=== PATIENT | female | born 1950 | race Caucasian/White ===

== ENCOUNTER 2019-11-01 07:52 | Inpatient (IN) | payer OTHER ==
--- NOTE | 2019-11-01 08:20 | PDOC ---
History of Present Illness - General Chief Complaint: Injury Stated Complaint: FALL Time Seen by Provider: 11/01/19 08:18 - History of Present Illness Initial Comments: HPI: 69yo F with PMH of HIV, cholecystectomy, DVT presenting after a unwitnessed falls. Patient reports that she was in the kitchen to get a soda last night when she fell and was unable to pick herself up. Beause she was unable to pick herself up, she slept on the floor until morning. This morning, patient woke up and fell once again, hitting her head and sustaining a bruise on her forehead. She managed to make her way to a telephone and called for an ambulance. Patient reports that she also fell twice last week. Patient remembers each fall. Denies loss of consciousness, nausea, or vomiting. Not on blood thinners. She is adherent to antiviral therapy, last CD4 count and viral load were "good" when they were checked last Tuesday. No fevers, chills, chest pain, or shortness of breath. PCP: Dr. Cortes ROS: Constitutional: no fever, no chills HEENT: no throat pain, no dysphagia Cardiovascular: no chest pain, no palpitations Respiratory: no cough, no shortness of breath Gastrointestinal: no abdominal pain, no nausea Genitourinary: no dysuria, no hematuria Musculoskeletal: no myalgia, no arthralgia Skin: no rash, no itching Neurologic: no headache, +weakness PE: General: Awake, alert, and fully oriented, in no acute distress Head: Mild hematoma on right side of forehead Eyes: EOMI, sclera anicteric ENT: Moist mucus membranes Neck: Normal ROM, supple Lungs: Lungs clear, Normal breath sounds Cardio: Regular rhythm, S1 and S2 present Abdomen: Soft, nontender Extremities: Normal range of motion, Distal pulses present SKIN: Warm, Dry, normal turgor Neurologic: Cranial nerves II through XII grossly intact. Normal speech ED Course/MDM: DDX including but not limited to mechanical fall, ACS, PE, PNA, anemia, metabolic derangement Labs, EKG, CXR CT Head CT Cspine 11/01/19 08:20 CT Head: "EXAM#: TYPE/EXAM: RESULT: [id number] CT/HEAD CT (STROKE) Collapse. Rule out stroke CT scan of the head without intravenous contrast. Compared to prior MRI of the brain dated 10/30/2019 There is [id number]-na-[id number] volume loss, ventricular dilatation and probable minimal periventricular chronic microvascular ischemic disease changes. No mass lesion, gross acute infarct or intracranial hemorrhage are identified. The calvarium is intact. Mild soft tissue swelling of the scalp over right side of the 4 head IMPRESSION: No significant interval change or CT evidence of acute intracranial pathology is identified. Mild soft tissue swelling of the scalp/hematoma over right side of the frontal bone. Reported By: Niranjan Duval MD 11/01/19 0841 " CT cspine: "EXAM#: TYPE/EXAM: RESULT: [id number] CT/CERVICAL SPINE CT W/O CONTR Rule out fracture CT scan of the cervical spine without intravenous contrast Coronal and sagittal reconstruction images were obtained. There is straightening of the cervical spine. No gross fracture, subluxation or prevertebral soft tissue swelling is seen. No jumped facets are identified. Moderately severe degenerative disc disease at C4-C5 and C5-C6 level with anterior and mild posterior spur formation resulting in moderate narrowing of the left foramen at both levels. Mild to moderate degenerative disc disease at C3-C4 level with prominent left lateral uncovertebral hypertrophy moderately narrowing the left foramen. Moderate degenerative disc disease at C6-C7 level with mild broad-based disc osteophyte complex and bilateral uncovertebral hypertrophy moderately narrowing the foramina, left more than right. Visualized portion of the airway appears unremarkable. No gross enlarged lymph nodes are identified. Calcified plaques at the common carotid bifurcation, bilaterally. Lung windows at the thoracic inlet appear unremarkable. IMPRESSION: The alignment is satisfactory. No gross fracture or subluxation is seen. No jumped facets are identified. Multilevel degenerative disc disease, mild disc osteophyte complex and bilateral uncovertebral hypertrophy, as described above " 11/01/19 10:12 CXR: "Single AP portable chest x-ray compared with August 02, 2010. The heart is borderline enlarged. No evidence of pneumonia, atelectasis. No pneumothorax, or large pleural effusion is seen. No evidence of vascular congestive changes. No evidence of bulky hilar adenopathy. Demineralized osseous structures. Dextroscoliosis of the thoracic spine. Bilateral glenohumeral joint arthropathy. Impression No evidence of active pulmonary disease Reported By: Zach Wilder MD 11/01/19 1142 " CBC WBC 11.5 K/mm3 (4.0-10.0) H 11/01/19 09:10 RBC 4.46 M/mm3 (3.60-5.2) 11/01/19 09:10 Hgb 14.4 GM/dL (10.7-15.3) 11/01/19 09:10 Hct 43.3 % (32.4-45.2) 11/01/19 09:10 MCV 97.1 fl (80-96) H 11/01/19 09:10 MCH 32.4 pg (25.7-33.7) 11/01/19 09:10 MCHC 33.3 g/dl (32.0-36.0) 11/01/19 09:10 RDW 14.0 % (11.6-15.6) 11/01/19 09:10 Plt Count 197 K/MM3 (134-434) 11/01/19 09:10 MPV 9.1 fl (7.5-11.1) 11/01/19 09:10 Absolute Neuts (auto) 7.7 K/mm3 (1.5-8.0) 11/01/19 09:10 Neutrophils % 66.5 % (42.8-82.8) 11/01/19 09:10 Lymphocytes % 23.5 % (8-40) 11/01/19 09:10 Monocytes % 7.5 % (3.8-10.2) 11/01/19 09:10 Eosinophils % 1.7 % (0-4.5) 11/01/19 09:10 Basophils % 0.8 % (0-2.0) 11/01/19 09:10 Nucleated RBC % 0 % (0-0) 11/01/19 09:10 Mild leukocytosis No anemia CMP Sodium 140 mmol/L (136-145) 11/01/19 09:10 Potassium 3.7 mmol/L (3.5-5.1) 11/01/19 09:10 Chloride 108 mmol/L (98-107) H 11/01/19 09:10 Carbon Dioxide 28 mmol/L (21-32) 11/01/19 09:10 Anion Gap 4 MMOL/L (8-16) L 11/01/19 09:10 BUN 20.0 mg/dL (7-18) H 11/01/19 09:10 Creatinine 0.9 mg/dL (0.55-1.3) 11/01/19 09:10 Est GFR (CKD-EPI)AfAm 74.56 11/01/19 09:10 Est GFR (CKD-EPI)NonAf 64.33 11/01/19 09:10 Random Glucose 102 mg/dL (74-106) 11/01/19 09:10 Calcium 9.3 mg/dL (8.5-10.1) 11/01/19 09:10 Total Bilirubin 0.6 mg/dL (0.2-1) 11/01/19 09:10 AST 20 U/L (15-37) 11/01/19 09:10 ALT 24 U/L (13-61) 11/01/19 09:10 Alkaline Phosphatase 143 U/L (45-117) H 11/01/19 09:10 Creatine Kinase 176 U/L (26-192) 11/01/19 09:10 Creatine Kinase Index 1.0 % (0.0-5.0) 11/01/19 09:10 CK-MB (CK-2) 1.8 ng/mL (0.5-3.6) 11/01/19 09:10 Troponin I < 0.02 ng/ml (0.00-0.05) 11/01/19 09:10 Total Protein 7.3 g/dl (6.4-8.2) 11/01/19 09:10 Albumin 3.7 g/dl (3.4-5.0) 11/01/19 09:10 Electrolytes unremarkable BUN mildly elevated Cr normal Tpn undetectable EKG: rate 62, QTc 475, NSR Discussed case with Dr. Randhawa who accepted patient for admission under herself 11/01/19 10:26 Fluid bolus ordered Given patient has history of DVT in the setting of unwitnessed fall/syncope, decision was made to obtain CTA which was negative for acute pathology: "Chest CT angiography Clinical information: evaluate for pulmonary embolism Multiplanar imaging was performed following the intravenous administration of nonionic contrast. No discrete pulmonary embolus is identified. Note is again made of mildly increased interstitial markings within the upper and lower lung murguia as well as mildly heterogeneous groundglass density consistent with mild chronic lung disease. No evidence of pneumothorax, infiltrate or pleural effusion. Stable 0.4 cm subpleural nodule within the lateral basal segment of the right lower lobe ( transaxial image 54). There is no definite cardiac enlargement. No pericardial effusion is seen. There is no discrete lymphadenopathy. No aortic aneurysm is noted. There is no obvious acute osseous pathology. Note is again made of a 2.3 cm left adrenal adenoma. A 1.3 cm nonspecific splenic low-attenuation focus is seen previously measuring 0.8 cm IMPRESSION: No CT evidence of pulmonary embolism or other acute intrathoracic pathology. Mild chronic lung disease without interval change in comparison to a CT exam of 12/15/2017. At least moderate atherosclerotic coronary calcifications are visualized. Correlate with clinical risk factors. Stable 0.4 cm right lower lobe pulmonary nodule. Stable 2.3 cm left adrenal adenoma. Biochemical evaluation is suggested if not previously performed. A 1.3 cm nonspecific splenic hypodense focus is noted which previously measured 0.8 cm. Correlation with 2 month follow-up CT or MRI is suggested to evaluate stability. Reported By : Joshua Dang MD 11/01/191931 " Past History - Past Medical History Allergies/Adverse Reactions: Allergies Allergy/AdvReac Type Severity Reaction Status Date / Time No Known Allergies Allergy Verified 06/17/13 12:03 Home Medications: Ambulatory Orders Acetaminophen W/ Codeine #3 [Tylenol W/Codeine #3] 1 combo NR Q4HWA #0 tablet Gabapentin [Neurontin] 1,200 mg PO BID 01/12/12 Paroxetine HCl [Paxil] 20 mg PO TID 01/12/12 Ritonavir Oral Solution [Norvir] 100 mg PO ONCE 01/12/12 Anemia: No Asthma: No Cancer: No Cardiac Disorders: No CVA: No COPD: No CHF: No Dementia: No Diabetes: No GI Disorders: No Disorders: No HTN: No Hypercholesterolemia: No Liver Disease: No Seizures: No Thyroid Disease: No - Surgical History Cholecystectomy: Yes (05/2013) Orthopedic Surgery: Yes (bi-lateral knee replacements) - Psycho Social/Smoking Cessation Hx Smoking Status: Yes Smoking History: Current every day smoker Have you smoked in the past 12 months: Yes Number of Cigarettes Smoked Daily: 5 Information on smoking cessation initiated: No Hx Alcohol Use: No Drug/Substance Use Hx: No *Physical Exam - Vital Signs Last Vital Signs Temp Pulse Resp BP Pulse Ox 97.7 F 60 18 166/73 97 11/01/19 07:57 11/01/19 07:57 11/01/19 07:57 11/01/19 07:57 11/01/19 07:57 ED Treatment Course - LABORATORY CBC & Chemistry Diagram: 11/01/19 09:10 11/01/19 09:10 Discharge - Discharge Information Problems reviewed: Yes Clinical Impression/Diagnosis: Unwitnessed fall Condition: Guarded - Admission Yes - Follow up/Referral - Patient Discharge Instructions - Post Discharge Activity
[2019-11-01 09:33] LABS: BASO % 0.8 % (0-2.0); EOS % 1.7 % (0-4.5); HEMATOCRIT 43.3 % (32.4-45.2); HEMOGLOBIN 14.4 GM/dL (10.7-15.3); LYMPH % 23.5 % (8-40); MCH 32.4 pg (25.7-33.7); MCHC 33.3 g/dl (32.0-36.0); MEAN CELL VOLUME 97.1 fl (80-96); MEAN PLT VOLUME 9.1 fl (7.5-11.1); MONO % 7.5 % (3.8-10.2); NEUT % 66.5 % (42.8-82.8); PLATELET COUNT 197 K/MM3 (134-434); RBC 4.46 M/mm3 (3.60-5.2); WHITE BLOOD COUNT 11.5 K/mm3 (4.0-10.0)
[2019-11-01] MEDS ORDERED: ALBUTEROL SO4 2.5/IPRATROPIUM 0.5 INH SOL 3 ML VIAL.NEB. NEB ONE (09:57)
[2019-11-01 09:59] LABS: ALBUMIN 3.7 g/dl (3.4-5.0); BILIRUBIN,TOTAL 0.6 mg/dL (0.2-1); CALCIUM 9.3 mg/dL (8.5-10.1); CREATININE 0.9 mg/dL (0.55-1.3); POTASSIUM 3.7 mmol/L (3.5-5.1); TOT PROT 7.3 g/dl (6.4-8.2)
[2019-11-01] MEDS ORDERED: SODIUM CHLORIDE 1,000 ML IV STA (10:32)
[2019-11-01 10:48] LABS: INR 0.95 (0.83-1.09); PROTHROMBIN TIME (PATIENT) 11.2 SEC (9.7-13.0)
[2019-11-01 10:51] LABS: ACTIVATED PTT 32.8 SECONDS (25.2-36.5)
--- NOTE | 2019-11-01 11:08 | HP ---
Admitting History and Physical - Primary Care Physician PCP: Yoshi Cortes - Admission Chief Complaint: s/p fall History of Present Illness: ER note- The patient is a 69 year old female, with a significant past medical history of HIV, cholecystectomy (05/2013) who presents to the ED via EMS s/p fall one day ago. Patient reports dizziness described as the room spinning since last night and presents with a hematoma to the right forehead. ] Spoke with ER resident Pt has had multiple falls since one week-- had seen DR Cortes earlier last week for follow up and was started on Inderal - after which pt has been experiencing dizziness and imbalance I spoke to PMD--patient did not have problems with gait-she had come in for palpitation and he started her on Inderal--has a history of lumbar radiculopathy and cervical radiculopathy denies chest pain or shortness of breath History Source: Patient, Transfer Record Limitations to Obtaining History: Poor Historian - Past Medical History Hepatobiliary: Yes: Hepatitis C (Status post interferon) Infectious Disease: Yes: HIV (she sees Dr. Rouse) Additional Past Medical History: lumbar radiculopathy, obesity, cervical radiculopathy, carpal tunnel syndrome status post surgery, history of right ankle fracture, lap cholecystectomy, hysterectomy, bilateral total knee replacement, history of right ankle fracture , chronic smokerhalf pack a day - Smoking History Smoking history: Current every day smoker Have you smoked in the past 12 months: Yes Aproximately how many cigarettes per day: 5 - Alcohol/Substance Use Hx Alcohol Use: No Home Medications - Allergies Allergies/Adverse Reactions: Allergies Allergy/AdvReac Type Severity Reaction Status Date / Time No Known Allergies Allergy Verified 06/17/13 12:03 - Home Medications Home Medications: Ambulatory Orders Acetaminophen W/ Codeine #3 [Tylenol W/Codeine #3] 1 combo NR Q4HWA #0 tablet Gabapentin [Neurontin] 1,200 mg PO BID 01/12/12 Paroxetine HCl [Paxil] 20 mg PO TID 01/12/12 Ritonavir Oral Solution [Norvir] 100 mg PO ONCE 01/12/12 Family Medical History Family Hx Cancer: Brother (liver cancer) Family Hx Dementia: Mother (Alzheimer's) Review of Systems - Review of Systems Constitutional: denies: Chills, Fever Physical Examination Vital Signs: Vital Signs Temperature 97.7 F 11/01/19 07:57 Pulse Rate 60 11/01/19 07:57 Respiratory Rate 18 11/01/19 07:57 Blood Pressure 166/73 11/01/19 07:57 O2 Sat by Pulse Oximetry (%) 97 11/01/19 07:57 Constitutional: Yes: No Distress, Calm, Other (hematoma right forehead) Cardiovascular: Yes: Regular Rate and Rhythm Respiratory: Yes: Diminished Gastrointestinal: Yes: Normal Bowel Sounds, Soft, Abdomen, Obese. No: Tenderness Edema: No Neurological: Yes: Alert, Other (unkept appearance) Psychiatric: Yes: Alert, Oriented Labs: CBC, BMP 11/01/19 09:10 11/01/19 09:10 Imaging - Results Chest X-ray: Image Reviewed (clear) Cat Scan: Pending (CT Head: "EXAM#: TYPE/EXAM: RESULT: [id number] CT/HEAD CT ( STROKE) Collapse. Rule out stroke CT scan of the head without intravenous contrast. Compared to prior MRI of the brain dated 10/30/2019 There is mild-to- moderate volume loss, ventricular dilatation and probable minimal periventricular chronic microvascular ischemic disease changes. No mass lesion, gross acute infarct or intracranial hemorrhage are identified. The calvarium is intact. Mild soft tissue swelling of the scalp over right side of the 4 head IMPRESSION: No significant interval change or CT evidence of acute intracranial pathology is identified. Mild soft tissue swelling of the scalp/hematoma over right side of the frontal bone. Reported By: Niranjan Duval MD 11/01/19 0841 " CT cspine: "EXAM#: TYPE/EXAM: RESULT: [id number] CT/CERVICAL SPINE CT W/O CONTR Rule out fracture CT scan of the cervical spine without intravenous contrast Coronal and sagittal reconstruction images were obtained. There is straightening of the cervical spine. No gross fracture, subluxation or prevertebral soft tissue swelling is seen. No jumped facets are identified. Moderately severe degenerative disc disease at C4-C5 and C5-C6 level with anterior and mild posterior spur formation resulting in moderate narrowing of the left foramen at both levels. Mild to moderate degenerative disc disease at C3-C4 level with prominent left lateral uncovertebral hypertrophy moderately narrowing the left foramen. Moderate degenerative disc disease at C6-C7 level with mild broad-based disc osteophyte complex and bilateral uncovertebral hypertrophy moderately narrowing the foramina, left more than right. Visualized portion of the airway appears unremarkable. No gross enlarged lymph nodes are identified. Calcified plaques at the common carotid bifurcation, bilaterally. Lung windows at the thoracic inlet appear unremarkable. IMPRESSION: The alignment is satisfactory. No gross fracture or subluxation is seen. No jumped facets are identified. Multilevel degenerative disc disease, mild disc osteophyte complex and bilateral uncovertebral hypertrophy, as described above " 11/01/19 10:12) EKG: Image Reviewed (normal sinus rhythm) Problem List - Problems (1) HIV (human immunodeficiency virus infection) Code(s): B20 - HUMAN IMMUNODEFICIENCY VIRUS [HIV] DISEASE (2) Frequent falls Code(s): R29.6 - REPEATED FALLS (3) Unwitnessed fall Code(s): R29.6 - REPEATED FALLS Assessment/Plan I spoke with the ER resident, he has ordered CTA chest to rule out PE as she had DVT in the past ID evaluation Physical therapy MRI brain was done by her neurologistnegative Neurology evaluation Check orthostasis Patient appears to be very drystart IV fluids Patient was on Lasix, Aldactone, Tylenol with Codeine, baclofen, high-dose gabapentin, methacarbamol-- medications may be the cause why she is falling I will hold off on these medications for now DVT prophylaxisheparin subcutaneous
[2019-11-01] MEDS: SODIUM CHLORIDE 0.45% 1,000 ML IV SCH (12:04)
[2019-11-01 13:33] LABS: EPI CELLS 6.2 /HPF (0-5/HPF); HYALINE CASTS 1 /lpf (0-8); PH,URINE 5.5 (5.0-8.0); URINE APPEARANCE CLEAR; URINE BACTERIA 8.2 /hpf (NEGATIVE); URINE BILIRUBIN NEGATIVE (NEGATIVE); URINE COLOR YELLOW; URINE GLUCOSE (UA) NEGATIVE (NEGATIVE); URINE KETONE NEGATIVE (NEGATIVE); URINE LEUK ESTERASE TRACE (NEGATIVE); URINE NITRITE NEGATIVE (NEGATIVE); URINE PROTEIN NEGATIVE (NEGATIVE); URINE RBC 2 /hpf (0-4); URINE UROBILINOGEN 0.2 mg/dL (0.2-1.0); URINE WBC 2 /hpf (0-5)
[2019-11-01] MEDS ORDERED: PARoxetine HCL 20 MG TABLET PO SCH (14:00)
--- NOTE | 2019-11-01 14:24 | PDOC ---
Documentation entered by Geraldine Villela SCRIBE, acting as scribe for Janeen Veloz MD. Janeen Veloz MD: This documentation has been prepared by the [employer] Nirvannie, SCRIBE, under my direction and personally reviewed by me in its entirety. I confirm that the documentation accurately reflects all work, treatment, procedures, and medical decision making performed by me. Attending Attestation - Resident Resident Name: Yisel Meade - ED Attending Attestation I have performed the following: I have examined & evaluated the patient, The case was reviewed & discussed with the resident, I agree w/resident's findings & plan, Exceptions are as noted - HPI HPI: 11/01/19 12:57 The patient is a 69 year old female, with a significant past medical history of HIV, cholecystectomy (05/2013) who presents to the ED via EMS s/p fall one day ago. Patient reports dizziness described as the room spinning since last night and presents with a hematoma to the right forehead. Allergies: NKDA Past surgical history: rotator cuff surgery , cholecystectomy (05/2013) Social History: tobacco smoker - Physicial Exam PE: 11/01/19 14:19 awake alert posterior scalp ttp. no skull defect. lungs clear bilat heart rrr no mrg abd soft nt nd ext wwp. right knee with large eccymosis. hip and knee from left knee lateral thigh wtih eccymosis. FROM hip, ankle and pelvis. pelvis stable nontender. nuero alert oriented x 3. - Medical Decision Making 11/01/19 14:20 69 yo F with c/o fall yesterday, has been notin jerking to her right arm and shakiness. also currently complaining of heaviness when she breaths. does have h /o prior DVT in right leg. no f.c no cough. plan xray r/o fx, ct head cervical spine. pt ct head and cervical spine no acute process. 11/01/19 14:21 will require admission for syncope. ekg NSR 62, left axis. Heart Score/ECG Review #1 ECG reviewed & interpreted by me at: 14:23 General ECG Interpretation: Sinus Rhythm, Normal Rate (62), Normal Intervals, No acute ischemic changes
--- NOTE | 2019-11-01 14:39 | EKG ---
Test Reason : Blood Pressure : / mmHG Vent. Rate : 062 BPM Atrial Rate : 062 BPM P-R Int : 140 ms QRS Dur : 088 ms QT Int : 468 ms P-R-T Axes : 047 -56 035 degrees QTc Int : 475 ms NORMAL SINUS RHYTHM LEFT ANTERIOR FASCICULAR BLOCK ABNORMAL ECG WHEN COMPARED WITH ECG OF 02-AUG-2010 20:00, CRITERIA FOR SEPTAL INFARCT ARE NO LONGER PRESENT Confirmed by REMI HOSKINS MD ([id number]) on 11/01/2019 2:39:24 PM Referred By: Confirmed By:REMI HOSKINS MD
--- NOTE | 2019-11-01 16:33 | PN ---
Progress Note (short form) - Note Progress Note: ID CONSULT DICTATED S/P FALLS HIV+ VL< 20 CD4 1089 CONTINUE TRUVADA/PREZCOBIX
--- NOTE | 2019-11-01 17:13 | CON.NEURO ---
Consult Consult Specialty:: Larry Referred by:: Jovanni - History of Present Illness History of Present Illness: 69 years old woman with history of HIV positive Anxiety ?? dementia Used to see my colleague Dr Dimitri Gomez [facility] I just saw the patient in the office 10/22 Came in with multiple falls Patient had MRI two days ago - History Source History Provided By: Patient, Family Member, Medical Record Limitations to Obtaining History: No Limitations - Past Medical History Hepatobiliary: Yes: Hepatitis C (Status post interferon) Infectious Disease: Yes: HIV (she sees Dr. Rouse) - Alcohol/Substance Use Hx Alcohol Use: No - Smoking History Smoking history: Current every day smoker Have you smoked in the past 12 months: Yes Aproximately how many cigarettes per day: 5 Home Medications - Allergies Allergies/Adverse Reactions: Allergies Allergy/AdvReac Type Severity Reaction Status Date / Time No Known Allergies Allergy Verified 06/17/13 12:03 - Home Medications Home Medications: Ambulatory Orders Acetaminophen W/ Codeine #3 [Tylenol W/Codeine #3] 1 combo NR Q4HWA #0 tablet Gabapentin [Neurontin] 1,200 mg PO BID 01/12/12 Paroxetine HCl [Paxil] 20 mg PO TID 01/12/12 Ritonavir Oral Solution [Norvir] 100 mg PO ONCE 01/12/12 Review of Systems - Review of Systems Constitutional: reports: No Symptoms Eyes: reports: No Symptoms HENT: reports: No Symptoms Neurological: reports: Headache, Incoordination, Numbness, Parasthesia, Unsteady Gait Physical Exam-Neuro Vital Signs: Vital Signs Temperature 97.8 F 11/01/19 12:31 Pulse Rate 62 11/01/19 12:31 Respiratory Rate 19 11/01/19 12:31 Blood Pressure 156/71 11/01/19 12:31 O2 Sat by Pulse Oximetry (%) 99 11/01/19 12:31 Constitutional: Yes: Well Nourished Neck: Yes: WNL Cardiovascular: Yes: WNL Labs: CBC, BMP 11/01/19 09:10 11/01/19 09:10 INR, PTT INR 0.95 (0.83-1.09) 11/01/19 09:10 - Neuro Exam Eyes: Yes: PERRLA Speech: WNL Dominant Hand: Right Cranial Nerves II-XII Intact: Yes Gag: Present DTR's: 1+ Left Bicep, 1+ Right Bicep Response to light touch: Normal Response to pain prick: Normal Response to temperature: Normal Motor Strength: 3/5: Left Arm, Right Arm, Left Leg, Right Leg Gait: Deferred, Other (slight tremors ) Imaging - Results Cat Scan: Image Reviewed MRI: Image Reviewed Problem List - Problems (1) Frequent falls Code(s): R29.6 - REPEATED FALLS (2) HIV (human immunodeficiency virus infection) Code(s): B20 - HUMAN IMMUNODEFICIENCY VIRUS [HIV] DISEASE Assessment/Plan multifactorial gait dysfunction 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 Fall precautions. 2. Blood work. 3. MRI of the lumbosacral spine with no contrast. 4. Physical therapy. 5. Follow up with ID 6. Trial of Sinement Thank you very much for allowing me to be part of this patient's neurological care Félix Juarez MD
[2019-11-01 18:29] VITALS: BMI 33.3
[2019-11-01] MEDS: ACETAMINOPHEN 325 MG TABLET (FP) PO PRN (18:31)
[2019-11-01] MEDS: HEPARIN NA (PORCINE) 5,000 UNITS/ML 1ML VIAL SQ SCH (22:00)
[2019-11-01] MEDS: CARBIDOPA/LEVODOPA 10/100 TABLET (FP) PO SCH (22:00)
[2019-11-02] MEDS: ACETAMINOPHEN 325 MG TABLET (FP) PO PRN ×2 (02:17→17:40)
[2019-11-02] MEDS: SODIUM CHLORIDE 0.45% 1,000 ML IV SCH (06:28)
[2019-11-02 09:13] LABS: HEMOGLOBIN 12.8 GM/dL (10.7-15.3); LYMPH % 31.7 % (8-40); MCH 32.2 pg (25.7-33.7); MCHC 33.7 g/dl (32.0-36.0); MEAN CELL VOLUME 95.5 fl (80-96); MEAN PLT VOLUME 9.2 fl (7.5-11.1); MONO % 7.9 % (3.8-10.2); NEUT % 57.4 % (42.8-82.8); PLATELET COUNT 171 K/MM3 (134-434); RBC 3.97 M/mm3 (3.60-5.2)
[2019-11-02 09:40] LABS: ALBUMIN 3.2 g/dl (3.4-5.0); BLOOD UREA NITROGEN 13.4 mg/dL (7-18); CALCIUM 8.9 mg/dL (8.5-10.1); CREATININE 0.7 mg/dL (0.55-1.3); POTASSIUM 3.4 mmol/L (3.5-5.1); TOT PROT 6.5 g/dl (6.4-8.2)
[2019-11-02] MEDS ORDERED: RITONAVIR ORAL SOLUTION 80 MG/ML PO SCH (10:00)
--- NOTE | 2019-11-02 11:23 | PN ---
Progress Note, Physician History of Present Illness: Pt seen/ examined chart is reviewed awake complains of back pain/ numbness - Current Medication List Current Medications: Active Medications Acetaminophen (Tylenol -) 650 mg PO Q6H PRN PRN Reason: Fever Last Admin: 11/02/19 02:17 Dose: 650 mg Carbidopa/Levodopa (Sinemet 10/100 -) 1 each PO BID [facility] Last Admin: 11/01/19 22:00 Dose: 1 each Emtricitabine/Tenofovir (Truvada) 1 tab PO DAILY [facility] Gabapentin (Neurontin -) 200 mg PO TID [facility] Heparin Sodium (Porcine) (Heparin -) 5,000 unit SQ BID [facility] Last Admin: 11/01/19 22:00 Dose: 5,000 unit Sodium Chloride (1/2 Normal Saline) 1,000 mls @ 83 mls/hr IV ASDIR [facility] Last Admin: 11/02/19 06:28 Dose: 83 mls/hr Potassium Chloride (Potassium Chloride Oral Liquid) 20 meq PO ONCE ONE Stop: 11/02/19 11:20 - Objective Vital Signs: Vital Signs Temperature 97.9 F 11/02/19 10:00 Pulse Rate 74 11/02/19 10:00 Respiratory Rate 11/02/19 10:00 Blood Pressure 133/58 L 11/02/19 10:00 O2 Sat by Pulse Oximetry (%) 95 11/01/19 21:00 Constitutional: Yes: No Distress Eyes: Yes: Conjunctiva Clear Neck: Yes: Supple Respiratory: Yes: CTA Bilaterally Gastrointestinal: Yes: Soft Musculoskeletal: Yes: Back Pain Edema: No Neurological: Yes: Alert Psychiatric: Yes: Other Additional Findings/Remarks: mood somewhat depressed Labs: CBC, BMP 11/02/19 07:50 11/02/19 07:50 INR, PTT INR 0.95 (0.83-1.09) 11/01/19 09:10 - ....Imaging Cat Scan: Report Reviewed Problem List - Problems (1) Back pain Code(s): M54.9 - DORSALGIA, UNSPECIFIED (2) Mood disorder Code(s): F39 - UNSPECIFIED MOOD [AFFECTIVE] DISORDER (3) Frequent falls Code(s): R29.6 - REPEATED FALLS (4) HIV (human immunodeficiency virus infection) Code(s): B20 - HUMAN IMMUNODEFICIENCY VIRUS [HIV] DISEASE Assessment/Plan Discussed PT Fall precautions Start on low dose of Gabapentin as well as Paxil daily dose MRI ordered Daily oob - chair PT D/C fluids as eating well Will follow
[2019-11-02] MEDS ORDERED: POTASSIUM CHLORIDE ORAL LIQUID 20 MEQ/15 ML PO ONE (11:30)
[2019-11-02] MEDS ORDERED: PT OWN MED DRAWER 7, Y5N ONE (11:49)
[2019-11-02] MEDS: EMTRICITABINE 200MG/TENOFOVIR 300MG PO SCH (11:51)
[2019-11-02] MEDS: CARBIDOPA/LEVODOPA 10/100 TABLET (FP) PO SCH ×2 (11:52→22:22)
[2019-11-02] MEDS: DARUNAVIR 800 MG/COBICISTAT 150MG TABLET PO SCH (11:52)
[2019-11-02] MEDS: HEPARIN NA (PORCINE) 5,000 UNITS/ML 1ML VIAL SQ SCH ×2 (11:53→22:22)
[2019-11-02] MEDS: GABAPENTIN 100 MG CAPSULE PO SCH ×2 (15:48→22:23)
--- NOTE | 2019-11-02 16:59 | CONS ---
INFECTIOUS DISEASE CONSULTATION DATE OF CONSULTATION: 11/01/2019 HISTORY: The patient is evaluated for management of her HIV medications. She is a 69-year-old female with a longstanding history of HIV. She is maintained on antiretroviral therapy. She is adherent with good viral markers. She was admitted to the hospital after syncopal episode and falls at home. CAT scan of the head was negative for acute pathology. She was noted to have soft tissue swelling and contusion over the right forehead. She is now admitted for further evaluation. Patient reports longstanding HIV infection stable on antiretroviral therapy. She is maintained on Truvada and Prezcobix. She reports that her last visit to her HIV provider was 3 months ago at which time she had an undetectable viral load and a T cell count of 1089. PAST MEDICAL HISTORY: Includes cholecystectomy and bilateral total knee replacements. ALLERGIES: No known allergies. SOCIAL HISTORY: Positive for tobacco use. LABORATORY DATA: 11.5, hematocrit 43.3, platelets 197, creatinine 0.9. UA; 2 white cells. PHYSICAL EXAMINATION: General: She is awake and alert in no acute distress. Vital Signs: Temperature 97.8, blood pressure 156/71, pulse 62 regular, respirations 20 per minute. HEENT: Sclerae anicteric. There is soft tissue swelling and a contusion over the right forehead. There is no laceration or abrasion. There are ecchymotic areas noted on her shoulders bilaterally. Poor dentition. Heart: Sounds S1, S2. Lungs: Clear. Abdomen: Soft. Obese. Nontender. Extremities: 1+ edema. Bilateral total knee replacement scars. IMPRESSION: 1. Status post falls. 2. Rule out syncope. 3. Human immunodeficiency virus positive, stable. PLAN: Continue antiretroviral therapy, Truvada, and Prezcobix. Obtain CD4 lymphocyte count. Patient to follow up with her HIV provider upon discharge. Thank you for the kind referral. AJ RUIZ M.D. CARINE/[id number]
[2019-11-02] MEDS: PARoxetine HCL 20 MG TABLET PO SCH (17:36)
--- NOTE | 2019-11-02 17:45 | PN ---
Progress Note, Physician History of Present Illness: slightly more attentive today Slight headache normal attention span follow commands normally No seizure activity Again review the MRI and a CAT scan of the head await MRI of the lumbosacral spine - Current Medication List Current Medications: Active Medications Acetaminophen (Tylenol -) 650 mg PO Q6H PRN PRN Reason: Fever Last Admin: 11/02/19 17:40 Dose: 650 mg Carbidopa/Levodopa (Sinemet 10/100 -) 1 each PO BID [facility] Last Admin: 11/02/19 11:52 Dose: 1 each Emtricitabine/Tenofovir (Truvada) 1 tab PO DAILY [facility] Last Admin: 11/02/19 11:51 Dose: 1 tab Gabapentin (Neurontin -) 200 mg PO TID [facility] Last Admin: 11/02/19 15:48 Dose: 200 mg Heparin Sodium (Porcine) (Heparin -) 5,000 unit SQ BID [facility] Last Admin: 11/02/19 11:53 Dose: 5,000 unit Paroxetine HCl (Paxil -) 20 mg PO DAILY [facility] Last Admin: 11/02/19 17:36 Dose: 20 mg - Objective Vital Signs: Vital Signs Temperature 97.4 F L 11/02/19 14:00 Pulse Rate 67 11/02/19 14:00 Respiratory Rate 18 11/02/19 14:00 Blood Pressure 138/66 11/02/19 14:00 O2 Sat by Pulse Oximetry (%) 95 11/01/19 21:00 Constitutional: Yes: Well Nourished Eyes: Yes: WNL HENT: Yes: WNL Neurological: Yes: Alert, Oriented, Babinski negative ...Motor Strength: WNL Labs: CBC, BMP 11/02/19 07:50 11/02/19 07:50 INR, PTT INR 0.95 (0.83-1.09) 11/01/19 09:10 Problem List - Problems (1) Frequent falls Code(s): R29.6 - REPEATED FALLS (2) HIV (human immunodeficiency virus infection) Code(s): B20 - HUMAN IMMUNODEFICIENCY VIRUS [HIV] DISEASE Assessment/Plan 1. Fall precautions. 2. Agree to the small dosage of the gabapentin. 3. Physical therapy. 4. Follow-up with ID. 5. MRI of the lumbosacral spine
[2019-11-03] MEDS: GABAPENTIN 100 MG CAPSULE PO SCH ×3 (06:07→22:18)
[2019-11-03] MEDS ORDERED: PT OWN MED DRAWER 7, Y5N ONE ×3 (10:45→21:54)
[2019-11-03] MEDS: PARoxetine HCL 20 MG TABLET PO SCH (10:47)
[2019-11-03] MEDS: CARBIDOPA/LEVODOPA 10/100 TABLET (FP) PO SCH ×2 (10:47→22:18)
[2019-11-03] MEDS: EMTRICITABINE 200MG/TENOFOVIR 300MG PO SCH (10:48)
[2019-11-03] MEDS: DARUNAVIR 800 MG/COBICISTAT 150MG TABLET PO SCH (10:48)
[2019-11-03 12:07] LABS: MYOGLOBIN SERUM 397 ng/mL (25-58)
[2019-11-03] MEDS: HEPARIN NA (PORCINE) 5,000 UNITS/ML 1ML VIAL SQ SCH ×2 (12:24→22:18)
--- NOTE | 2019-11-03 13:02 | PN ---
Progress Note (short form) - Note Progress Note: Pt seen/ examined chart is reviewed awake complains of back pain/ numbness occasional coughing-- dry Vital Signs - 24 hr 11/02/19 11/02/19 11/02/19 14:00 18:00 21:00 Temperature 97.4 F L 98.1 F Pulse Rate 67 70 Respiratory 18 18 20 Rate Blood Pressure 138/66 131/65 O2 Sat by Pulse 95 Oximetry (%) 11/02/19 11/03/19 11/03/19 23:00 06:20 10:45 Temperature 98.4 F 98.1 F Pulse Rate 66 84 93 H Respiratory 20 20 20 Rate Blood Pressure 134/78 144/100 147/75 O2 Sat by Pulse Oximetry (%) Current Medications Generic Name Dose Route Start Last Admin Trade Name Freq PRN Reason Stop Dose Admin Acetaminophen 650 mg 11/01/19 17:27 11/02/19 17:40 Tylenol - PO 650 mg Q6H PRN Administration Fever Carbidopa/Levodopa 1 each 11/01/19 22:00 11/03/19 10:47 Sinemet 10/100 - PO 1 each BID MAYDA Administration Emtricitabine/Tenofovir 1 tab 11/02/19 10:00 11/03/19 10:48 Truvada PO 1 tab DAILY MAYDA Administration Gabapentin 200 mg 11/02/19 14:00 11/03/19 06:07 Neurontin - PO 200 mg TID MAYDA Administration Heparin Sodium (Porcine) 5,000 unit 11/01/19 22:00 11/03/19 12:24 Heparin - SQ 5,000 unit BID MAYDA Administration Paroxetine HCl 20 mg 11/02/19 18:00 11/03/19 10:47 Paxil - PO 20 mg DAILY MAYDA Administration Laboratory Results - last 24 hr 11/02/19 07:50 Myoglobin 397 H S1 S2 RRR Right shoulder ecchymosis right forehead hematoma Lungs decreased breath sounds, occaisonl ronchi Abd- soft, NT no edema Assessment/Plan iv fluids nebs as needed PT Fall precautions Start on low dose of Gabapentin as well as Paxil daily dose MRI ordered-- pending spine Daily oob - chair Problem List - Problems (1) HIV (human immunodeficiency virus infection) Code(s): B20 - HUMAN IMMUNODEFICIENCY VIRUS [HIV] DISEASE (2) Frequent falls Code(s): R29.6 - REPEATED FALLS (3) Unwitnessed fall Code(s): R29.6 - REPEATED FALLS
[2019-11-03] MEDS ORDERED: ALBUTEROL SO4 0.083% IH SOL 2.5 MG/3 ML VIAL.NEB. NEB PRN (13:23)
[2019-11-03] MEDS: SODIUM CHLORIDE 0.45% 1,000 ML IV SCH (14:37)
[2019-11-04] MEDS: ACETAMINOPHEN 325 MG TABLET (FP) PO PRN ×2 (01:25→17:59)
[2019-11-04] MEDS: GABAPENTIN 100 MG CAPSULE PO SCH ×3 (06:39→23:13)
[2019-11-04] MEDS: SODIUM CHLORIDE 0.45% 1,000 ML IV SCH ×2 (06:39→07:09)
[2019-11-04 08:50] LABS: BLOOD UREA NITROGEN 11.6 mg/dL (7-18); CALCIUM 8.8 mg/dL (8.5-10.1); CREATININE 0.9 mg/dL (0.55-1.3); POTASSIUM 3.2 mmol/L (3.5-5.1)
--- NOTE | 2019-11-04 09:54 | PN ---
Progress Note (short form) - Note Progress Note: Pt seen/ examined chart is reviewed awake spoke with son-- states that she is confused- not herself-- he is unable to care for her at home-- she is not hygienic Vital Signs - 24 hr 11/03/19 11/04/19 11/04/19 21:00 01:57 05:00 Temperature 99.9 F H 99 F Pulse Rate 103 H 86 Respiratory 20 20 20 Rate Blood Pressure 139/78 123/66 O2 Sat by Pulse 95 Oximetry (%) 11/04/19 11/04/19 11/04/19 09:51 11:58 14:00 Temperature 99.3 F 102.5 F H Pulse Rate 100 H 105 H 93 H Respiratory 20 20 20 Rate Blood Pressure 137/62 154/88 113/53 L O2 Sat by Pulse Oximetry (%) 11/04/19 11/04/19 11/04/19 17:10 18:32 18:36 Temperature 100.9 F H 102.3 F H Pulse Rate 100 H Respiratory 24 H Rate Blood Pressure 184/86 H O2 Sat by Pulse Oximetry (%) Current Medications Generic Name Dose Route Start Last Admin Trade Name Freq PRN Reason Stop Dose Admin Acetaminophen 650 mg 11/01/19 17:27 11/04/19 17:59 Tylenol - PO 650 mg Q6H PRN Administration Fever Albuterol Sulfate 1 amp 11/03/19 13:23 Ventolin 0.083% Nebulizer Soln - NEB Q6H PRN SHORT OF BREATH/WHEEZING Carbidopa/Levodopa 1 each 11/01/19 22:00 11/04/19 12:00 Sinemet 10/100 - PO 1 each BID MAYDA Administration Emtricitabine/Tenofovir 1 tab 11/02/19 10:00 11/04/19 12:00 Truvada PO 1 tab DAILY MAYDA Administration Gabapentin 200 mg 11/02/19 14:00 11/04/19 14:34 Neurontin - PO 200 mg TID MAYDA Administration Heparin Sodium (Porcine) 5,000 unit 11/01/19 22:00 11/04/19 10:37 Heparin - SQ 5,000 unit BID MAYDA Administration Ceftriaxone Sodium 1 gm/ 50 mls @ 100 mls/hr 11/04/19 15:30 11/04/19 17:09 Dextrose IVPB 100 mls/hr DAILY [facility] Administration Ondansetron HCl 4 mg 02/02/20 09:57 11/04/19 10:37 Zofran Odt - SL 4 mg Q6H PRN Administration NAUSEA AND/OR VOMITING Paroxetine HCl 20 mg 11/02/19 18:00 11/04/19 11:59 Paxil - PO 20 mg DAILY MAYDA Administration Laboratory Results - last 24 hr 11/02/19 11/04/19 11/04/19 07:50 07:45 16:10 Sodium 135 L Potassium 3.2 L Chloride 102 Carbon Dioxide 25 Anion Gap 8 BUN 11.6 Creatinine 0.9 Est GFR (CKD-EPI)AfAm 74.56 Est GFR (CKD-EPI)NonAf 64.33 Random Glucose 82 Calcium 8.8 Urine Color Straw Urine Appearance Cloudy Urine pH 7.0 D Ur Specific [place] 1.010 Urine Protein 2+ H Urine Glucose (UA) Negative Urine Ketones Negative Urine Blood 3+ H Urine Nitrite Positive H Urine Bilirubin Negative Urine Urobilinogen 0.2 Ur Leukocyte Esterase 4+ H Urine WBC (Auto) 4357.7 Urine RBC (Auto) 231.8 U Epithel Cells (Auto) 9.5 Urine Bacteria (Auto) 888.7 NATALIIA Screen Positive H NATALIIA Homogeneous Pattern 1:160 H NATALIIA Nucleolar Pattern TNP NATALIIA Spindle Fede Pattern TNP NATALIIA Midbody Pattern TNP NATALIIA Centriole Pattern TNP NATALIIA Nuclear Dot Pattern TNP NATALIIA PCNA Pattern TNP NATALIIA Nuclear Membr Pat TNP NATALIIA Speckled Pattern TNP NATALIIA Centromere Pattern TNP S1 S2 RRR Right shoulder ecchymosis right forehead hematoma Lungs decreased breath sounds, occaisonl ronchi Abd- soft, NT no edema Assessment/Plan iv fluids has fever-- recheck UA , culture-- appears to have a UTI- not significant in the previous sample blood cultures pending start ceftriaxone check influenza screen cxr noted-- will order xray shoulder MRI spine noted-->ordering abd/pelvis CT for abd mass nebs as needed PT Fall precautions Daily oob - chair Problem List - Problems (1) HIV (human immunodeficiency virus infection) Code(s): B20 - HUMAN IMMUNODEFICIENCY VIRUS [HIV] DISEASE (2) Frequent falls Code(s): R29.6 - REPEATED FALLS (3) Unwitnessed fall Code(s): R29.6 - REPEATED FALLS
[2019-11-04] MEDS ORDERED: PT OWN MED DRAWER 7, Y5N ONE ×3 (10:26→23:11)
[2019-11-04] MEDS: EMTRICITABINE 200MG/TENOFOVIR 300MG PO SCH ×2 (10:30→12:00)
[2019-11-04] MEDS: PARoxetine HCL 20 MG TABLET PO SCH ×2 (10:30→11:59)
[2019-11-04] MEDS: CARBIDOPA/LEVODOPA 10/100 TABLET (FP) PO SCH ×3 (10:30→23:13)
[2019-11-04] MEDS: DARUNAVIR 800 MG/COBICISTAT 150MG TABLET PO SCH ×2 (10:30→12:00)
[2019-11-04] MEDS: HEPARIN NA (PORCINE) 5,000 UNITS/ML 1ML VIAL SQ SCH ×2 (10:37→23:13)
[2019-11-04] MEDS: ONDANSETRON *ODT* 4 MG TABLET SL PRN (10:37)
[2019-11-04] MEDS ORDERED: POTASSIUM CHLORIDE TABS 20 MEQ TABLET.ER (FP) PO ONE (11:00)
--- NOTE | 2019-11-04 13:40 | PN ---
Progress Note, Physician History of Present Illness: events noted chart review at seen on the floor no family members at the bedside According to the nursing staff patient had an episode yesterday of being confused. No report of any seizure-like activity patient was not hallucinating CAT scan of the head revealed no evidence of acute pathology MRI of the lumbosacral spine noted with multiple degenerative disc disease with a large disc between L1 and L2. Questionable abdominal mass of questionable nature proceed with CAT scan of the abdomen - Current Medication List Current Medications: Active Medications Acetaminophen (Tylenol -) 650 mg PO Q6H PRN PRN Reason: Fever Last Admin: 11/04/19 01:25 Dose: 650 mg Albuterol Sulfate (Ventolin 0.083% Nebulizer Soln -) 1 amp NEB Q6H PRN PRN Reason: SHORT OF BREATH/WHEEZING Carbidopa/Levodopa (Sinemet 10/100 -) 1 each PO BID [facility] Last Admin: 11/04/19 12:00 Dose: 1 each Emtricitabine/Tenofovir (Truvada) 1 tab PO DAILY [facility] Last Admin: 11/04/19 12:00 Dose: 1 tab Gabapentin (Neurontin -) 200 mg PO TID [facility] Last Admin: 11/04/19 06:39 Dose: 200 mg Heparin Sodium (Porcine) (Heparin -) 5,000 unit SQ BID [facility] Last Admin: 11/04/19 10:37 Dose: 5,000 unit Ondansetron HCl (Zofran Odt -) 4 mg SL Q6H PRN PRN Reason: NAUSEA AND/OR VOMITING Last Admin: 11/04/19 10:37 Dose: 4 mg Paroxetine HCl (Paxil -) 20 mg PO DAILY [facility] Last Admin: 11/04/19 11:59 Dose: 20 mg - Objective Vital Signs: Vital Signs Temperature 99.3 F 11/04/19 09:51 Pulse Rate 105 H 11/04/19 11:58 Respiratory Rate 20 11/04/19 11:58 Blood Pressure 154/88 11/04/19 11:58 O2 Sat by Pulse Oximetry (%) 95 11/03/19 21:00 Constitutional: Yes: Well Nourished Eyes: Yes: WNL HENT: Yes: WNL Neurological: Yes: Alert, Oriented, Babinski negative ...Motor Strength: WNL Labs: CBC, BMP 11/02/19 07:50 11/04/19 07:45 INR, PTT INR 0.95 (0.83-1.09) 11/01/19 09:10 Problem List - Problems (1) Frequent falls Code(s): R29.6 - REPEATED FALLS (2) HIV (human immunodeficiency virus infection) Code(s): B20 - HUMAN IMMUNODEFICIENCY VIRUS [HIV] DISEASE Assessment/Plan 1. out of bed to chair 2. Fall precautions. 3. Physical therapy. 3. Continue carbidopa the same. 4. CAT scan of the abdomen. 5. Continue Paxil the same
[2019-11-04] MEDS ORDERED: DEXTROSE 5%-WATER - 50 ML IVPB ONE (16:36)
[2019-11-04] MEDS ORDERED: cefTRIAXone SODIUM 1 GM VIAL ONE (16:36)
[2019-11-04] MEDS: CEFTRIAXONE 1 GM in DEXTROSE 5%-WATER - 50 ML IVPB SCH (17:09)
[2019-11-04 17:34] LABS: URINE APPEARANCE CLOUDY; URINE COLOR STRAW
[2019-11-04 17:40] LABS: URINE BILIRUBIN NEGATIVE (NEGATIVE); URINE GLUCOSE (UA) NEGATIVE (NEGATIVE); URINE KETONE NEGATIVE (NEGATIVE)
[2019-11-04 17:41] LABS: URINE LEUK ESTERASE 4+ (NEGATIVE); URINE NITRITE POSITIVE (NEGATIVE); URINE PROTEIN 2+ (NEGATIVE); URINE RBC 231.8 /hpf (0-4); URINE UROBILINOGEN 0.2 mg/dL (0.2-1.0)
[2019-11-04 17:42] LABS: EPI CELLS 9.5 /HPF (0-5/HPF); URINE BACTERIA 888.7 /hpf (NEGATIVE); URINE WBC 4357.7 /hpf (0-5)
[2019-11-04] MEDS ORDERED: IBUPROFEN 400 MG TABLET (FP) PO ONE (18:35)
--- NOTE | 2019-11-04 20:44 | HOSP ---
Subjective - Review of Symptoms Events since last encounter: Hospitalist Encounter Notified via microblog from the RN, that the patient is increasingly altered. Was asked to assess. 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 Patient reports that she has been very tired and has frequent UTIs. Physical Examination Vital Signs: Vital Signs Temperature 102.3 F H 11/04/19 18:32 Pulse Rate 100 H 11/04/19 18:36 Respiratory Rate 24 H 11/04/19 18:36 Blood Pressure 184/86 H 11/04/19 18:36 O2 Sat by Pulse Oximetry (%) 95 11/03/19 21:00 Constitutional: Yes: Well Nourished, No Distress, Calm, Obese Eyes: Yes: WNL, Conjunctiva Clear, EOM Intact, PERRL HENT: Yes: WNL, Atraumatic, Normocephalic Neck: Yes: WNL, Supple, Trachea Midline Cardiovascular: Yes: WNL, Regular Rate and Rhythm, S1, S2 Respiratory: Yes: WNL, Regular, CTA Bilaterally Gastrointestinal: Yes: WNL, Normal Bowel Sounds, Soft Renal/: Yes: WNL Breast(s): Yes: WNL Musculoskeletal: Yes: WNL Extremities: Yes: WNL Edema: No Peripheral Pulses WNL: Yes Neurological: Yes: WNL, Alert, Oriented, Cran Nerves II-XII Intact ...Motor Strength: WNL Psychiatric: Yes: WNL, Alert, Oriented Labs: CBC, BMP 11/02/19 07:50 11/04/19 07:45 Laboratory Results - last 24 hr 11/04/19 11/04/19 07:45 16:10 Sodium 135 L Potassium 3.2 L Chloride 102 Carbon Dioxide 25 Anion Gap 8 BUN 11.6 Creatinine 0.9 Est GFR (CKD-EPI)AfAm 74.56 Est GFR (CKD-EPI)NonAf 64.33 Random Glucose 82 Calcium 8.8 Urine Color Straw Urine Appearance Cloudy Urine pH 7.0 D Ur Specific [place] 1.010 Urine Protein 2+ H Urine Glucose (UA) Negative Urine Ketones Negative Urine Blood 3+ H Urine Nitrite Positive H Urine Bilirubin Negative Urine Urobilinogen 0.2 Ur Leukocyte Esterase 4+ H Urine WBC (Auto) 4357.7 Urine RBC (Auto) 231.8 U Epithel Cells (Auto) 9.5 Urine Bacteria (Auto) 888.7 Intake & Output 11/01/19 11/02/19 11/03/19 11/04/19 23:59 23:59 23:59 23:59 Intake Total 432 1514 325 50 Output Total 300 Balance 432 1514 325 -250 Weight 87.997 kg Current Medications Generic Name Dose Route Start Last Admin Trade Name Freq PRN Reason Stop Dose Admin Acetaminophen 650 mg 11/01/19 17:27 11/04/19 17:59 Tylenol - PO 650 mg Q6H PRN Administration Fever Albuterol Sulfate 1 amp 11/03/19 13:23 Ventolin 0.083% Nebulizer Soln - NEB Q6H PRN SHORT OF BREATH/WHEEZING Carbidopa/Levodopa 1 each 11/01/19 22:00 11/04/19 12:00 Sinemet 10/100 - PO 1 each BID MAYDA Administration Emtricitabine/Tenofovir 1 tab 11/02/19 10:00 11/04/19 12:00 Truvada PO 1 tab DAILY MAYDA Administration Gabapentin 200 mg 11/02/19 14:00 11/04/19 14:34 Neurontin - PO 200 mg TID MAYDA Administration Heparin Sodium (Porcine) 5,000 unit 11/01/19 22:00 11/04/19 10:37 Heparin - SQ 5,000 unit BID MAYDA Administration Ceftriaxone Sodium 1 gm/ 50 mls @ 100 mls/hr 11/04/19 15:30 11/04/19 17:09 Dextrose IVPB 100 mls/hr DAILY [facility]DA Administration Ondansetron HCl 4 mg 11/04/19 09:57 11/04/19 10:37 Zofran Odt - SL 4 mg Q6H PRN Administration NAUSEA AND/OR VOMITING Paroxetine HCl 20 mg 11/02/19 18:00 11/04/19 11:59 Paxil - PO 20 mg DAILY MAYDA Administration Hospitalist Encounter Recommendations/Interventions: Continue to monitor for Delirium Fall Precautions
[2019-11-05] MEDS: ONDANSETRON *ODT* 4 MG TABLET SL PRN (04:31)
[2019-11-05] MEDS: ACETAMINOPHEN 325 MG TABLET (FP) PO PRN ×3 (04:31→18:00)
[2019-11-05] MEDS: GABAPENTIN 100 MG CAPSULE PO SCH ×3 (06:41→21:50)
[2019-11-05] MEDS ORDERED: PT OWN MED DRAWER 7, Y5N ONE ×2 (07:29→10:27)
[2019-11-05] MEDS ORDERED: DEXTROSE 5%-WATER - 50 ML IVPB ONE (10:27)
[2019-11-05] MEDS ORDERED: cefTRIAXone SODIUM 1 GM VIAL ONE (10:27)
[2019-11-05] MEDS: CEFTRIAXONE 1 GM in DEXTROSE 5%-WATER - 50 ML IVPB SCH (10:37)
[2019-11-05] MEDS: CARBIDOPA/LEVODOPA 10/100 TABLET (FP) PO SCH ×2 (10:37→23:23)
[2019-11-05] MEDS: PARoxetine HCL 20 MG TABLET PO SCH (10:37)
[2019-11-05] MEDS: HEPARIN NA (PORCINE) 5,000 UNITS/ML 1ML VIAL SQ SCH ×2 (10:38→21:50)
[2019-11-05] MEDS: DARUNAVIR 800 MG/COBICISTAT 150MG TABLET PO SCH (10:39)
[2019-11-05] MEDS: EMTRICITABINE 200MG/TENOFOVIR 300MG PO SCH (10:39)
--- NOTE | 2019-11-05 10:53 | PN ---
Progress Note (short form) - Note Progress Note: pt seen / examined chart is reviewed awake comfortable back pain better no distress spiking fever-- repeat cultures sent On Recephin Vital Signs Temp 100.7 F H 11/05/19 06:00 Pulse 81 11/05/19 06:00 Resp 20 11/05/19 06:00 BP 93/44 L 11/05/19 06:00 Pulse Ox 92 L 11/04/19 10:00 Intake & Output 11/04/19 11/04/19 11/05/19 11:59 23:59 11:59 Intake Total 975 Output Total 300 300 Balance 675 -300 Intake: IV 525 1/2 Normal Saline 1,000 525 ml @ 75 mls/hr IV ASDIR [facility] Rx#:[id number] IVPB 50 Oral 400 Output: Urine 300 300 Void 300 300 Other: Voiding Method Bedside Commode Bedside Commode # Unmeasured Voids Void 4 2 1 Bowel Movement No Yes # Bowel Movements 1 Active Medications Acetaminophen (Tylenol -) 650 mg PO Q6H PRN PRN Reason: Fever Last Admin: 11/05/19 04:31 Dose: 650 mg Albuterol Sulfate (Ventolin 0.083% Nebulizer Soln -) 1 amp NEB Q6H PRN PRN Reason: SHORT OF BREATH/WHEEZING Carbidopa/Levodopa (Sinemet 10/100 -) 1 each PO BID [facility] Last Admin: 11/05/19 10:37 Dose: 1 each Emtricitabine/Tenofovir (Truvada) 1 tab PO DAILY [facility] Last Admin: 11/05/19 10:39 Dose: 1 tab Gabapentin (Neurontin -) 200 mg PO TID [facility] Last Admin: 11/05/19 06:41 Dose: 200 mg Heparin Sodium (Porcine) (Heparin -) 5,000 unit SQ BID [facility] Last Admin: 11/05/19 10:38 Dose: 5,000 unit Ceftriaxone Sodium 1 gm/ (Dextrose) 50 mls @ 100 mls/hr IVPB DAILY [facility] Last Admin: 11/05/19 10:37 Dose: 100 mls/hr Ondansetron HCl (Zofran Odt -) 4 mg SL Q6H PRN PRN Reason: NAUSEA AND/OR VOMITING Last Admin: 11/05/19 04:31 Dose: 4 mg Paroxetine HCl (Paxil -) 20 mg PO DAILY [facility] Last Admin: 11/05/19 10:37 Dose: 20 mg Physical Exam S1 S2 RRR Right shoulder ecchymosis right forehead hematoma Lungs decreased breath sounds at abses Abd- soft, no edema Alert/ awake Assessment/Plan fever blood cultures pending started ceftriaxone check influenza screen cxr noted-- as well as xray shoulder-- old surgery- Hardware MRI spine noted-->ordering abd/pelvis CT for abd mass-- Pending nebs as needed PT Fall precautions Daily oob - chair f/u labs d/w i/d - Dr. Pearson also-- Will follow Problem List - Problems (1) Back pain Problems reviewed: Yes Code(s): M54.9 - DORSALGIA, UNSPECIFIED (2) Mood disorder Code(s): F39 - UNSPECIFIED MOOD [AFFECTIVE] DISORDER (3) Frequent falls Problems reviewed: Yes Code(s): R29.6 - REPEATED FALLS (4) HIV (human immunodeficiency virus infection) Problems reviewed: Yes Code(s): B20 - HUMAN IMMUNODEFICIENCY VIRUS [HIV] DISEASE (5) Fever Problems reviewed: Yes Code(s): R50.9 - FEVER, UNSPECIFIED
[2019-11-05 11:26] LABS: BASO % 0.8 % (0-2.0); EOS % 0.7 % (0-4.5); HEMOGLOBIN 13.1 GM/dL (10.7-15.3); LYMPH % 13.5 % (8-40); MCH 32.6 pg (25.7-33.7); MCHC 33.5 g/dl (32.0-36.0); MEAN CELL VOLUME 97.3 fl (80-96); MEAN PLT VOLUME 9.4 fl (7.5-11.1); PLATELET COUNT 158 K/MM3 (134-434); RBC 4.01 M/mm3 (3.60-5.2); WHITE BLOOD COUNT 6.7 K/mm3 (4.0-10.0)
[2019-11-05 11:48] LABS: BILIRUBIN,TOTAL 0.6 mg/dL (0.2-1); BLOOD UREA NITROGEN 16.7 mg/dL (7-18); CALCIUM 8.8 mg/dL (8.5-10.1); CREATININE 1.2 mg/dL (0.55-1.3); POTASSIUM 3.3 mmol/L (3.5-5.1); TOT PROT 6.5 g/dl (6.4-8.2)
--- NOTE | 2019-11-05 17:47 | PN ---
Progress Note, Physician History of Present Illness: TEMP ELEVATION NOTED COMPLAINED OF DYSURIA CULTURES OBTAINED EMPIRICALLY STARTED ON CEFTRIAXONE - Current Medication List Current Medications: Active Medications Acetaminophen (Tylenol -) 650 mg PO Q6H PRN PRN Reason: Fever Last Admin: 11/05/19 10:58 Dose: 650 mg Albuterol Sulfate (Ventolin 0.083% Nebulizer Soln -) 1 amp NEB Q6H PRN PRN Reason: SHORT OF BREATH/WHEEZING Carbidopa/Levodopa (Sinemet 10/ -) 1 each PO BID [facility] Last Admin: 11/05/19 10:37 Dose: 1 each Emtricitabine/Tenofovir (Truvada) 1 tab PO DAILY [facility] Last Admin: 11/05/19 10:39 Dose: 1 tab Gabapentin (Neurontin -) 200 mg PO TID [facility] Last Admin: 11/05/19 14:00 Dose: 200 mg Heparin Sodium (Porcine) (Heparin -) 5,000 unit SQ BID [facility] Last Admin: 11/05/19 10:38 Dose: 5,000 unit Ceftriaxone Sodium 1 gm/ (Dextrose) 50 mls @ 100 mls/hr IVPB DAILY [facility] Last Admin: 11/05/19 10:37 Dose: 100 mls/hr Ondansetron HCl (Zofran Odt -) 4 mg SL Q6H PRN PRN Reason: NAUSEA AND/OR VOMITING Last Admin: 11/05/19 04:31 Dose: 4 mg Paroxetine HCl (Paxil -) 20 mg PO DAILY [facility] Last Admin: 11/05/19 10:37 Dose: 20 mg - Objective Vital Signs: Vital Signs Temperature 98.8 F 11/05/19 15:49 Pulse Rate 96 H 11/05/19 15:49 Respiratory Rate 20 11/05/19 15:49 Blood Pressure 117/86 11/05/19 15:49 O2 Sat by Pulse Oximetry (%) 98 11/05/19 15:55 Constitutional: Yes: No Distress Cardiovascular: Yes: Regular Rate and Rhythm, S1, S2 Respiratory: Yes: Rhonchi Gastrointestinal: Yes: Normal Bowel Sounds, Soft Edema: No Labs: CBC, BMP 11/05/19 09:55 11/05/19 09:55 INR, PTT INR 0.95 (0.83-1.09) 11/01/19 09:10 - ....Imaging Chest X-ray: Pending Assessment/Plan FEVER ?UTI/SEPSIS SECONDARY TO UTI HIV+ STABLE AWAIT C/S CONTINUE CEFTRIAXONE
[2019-11-06] MEDS: GABAPENTIN 100 MG CAPSULE PO SCH ×3 (06:03→21:43)
[2019-11-06] MEDS: ACETAMINOPHEN 325 MG TABLET (FP) PO PRN ×2 (06:04→21:05)
[2019-11-06 08:24] LABS: BASO % 0.9 % (0-2.0); EOS % 0.9 % (0-4.5); HEMATOCRIT 38.9 % (32.4-45.2); HEMOGLOBIN 13.2 GM/dL (10.7-15.3); MCH 32.4 pg (25.7-33.7); MEAN CELL VOLUME 95.2 fl (80-96); MEAN PLT VOLUME 9.4 fl (7.5-11.1); MONO % 8.1 % (3.8-10.2); NEUT % 68.1 % (42.8-82.8); PLATELET COUNT 174 K/MM3 (134-434); RBC 4.09 M/mm3 (3.60-5.2); WHITE BLOOD COUNT 6.3 K/mm3 (4.0-10.0)
[2019-11-06 08:39] LABS: ALBUMIN 3.1 g/dl (3.4-5.0); BILIRUBIN,TOTAL 0.4 mg/dL (0.2-1); BLOOD UREA NITROGEN 17.3 mg/dL (7-18); CALCIUM 8.3 mg/dL (8.5-10.1); CREATININE 1.1 mg/dL (0.55-1.3); TOT PROT 6.4 g/dl (6.4-8.2)
[2019-11-06 09:15] LABS: POTASSIUM 2.9 mmol/L (3.5-5.1)
[2019-11-06] MEDS ORDERED: POTASSIUM CHLORIDE TABS 20 MEQ TABLET.ER (FP) PO ONE ×2 (10:00→19:00)
[2019-11-06] MEDS ORDERED: DEXTROSE 5%-WATER - 50 ML IVPB ONE (10:05)
[2019-11-06] MEDS ORDERED: cefTRIAXone SODIUM 1 GM VIAL ONE (10:05)
[2019-11-06] MEDS: CEFTRIAXONE 1 GM in DEXTROSE 5%-WATER - 50 ML IVPB SCH (10:11)
[2019-11-06] MEDS: HEPARIN NA (PORCINE) 5,000 UNITS/ML 1ML VIAL SQ SCH ×3 (10:15→21:59)
[2019-11-06] MEDS: PARoxetine HCL 20 MG TABLET PO SCH (10:16)
[2019-11-06] MEDS: DARUNAVIR 800 MG/COBICISTAT 150MG TABLET PO SCH (10:31)
[2019-11-06] MEDS: EMTRICITABINE 200MG/TENOFOVIR 300MG PO SCH (10:31)
--- NOTE | 2019-11-06 12:13 | PN ---
Progress Note (short form) - Note Progress Note: Pt seen/ examined chart is reviewed awake Vital Signs - 24 hr 11/05/19 11/05/19 11/05/19 15:49 15:55 18:00 Temperature 98.8 F 100.9 F H Pulse Rate 96 H 81 Respiratory 20 20 Rate Blood Pressure 117/86 97/45 L O2 Sat by Pulse 98 Oximetry (%) 11/05/19 11/06/19 11/06/19 21:00 02:00 06:00 Temperature 99.4 F 99.5 F 100.0 F H Pulse Rate 74 86 90 Respiratory 20 20 20 Rate Blood Pressure 89/44 L 100/54 L 98/57 L O2 Sat by Pulse 95 Oximetry (%) Current Medications Generic Name Dose Route Start Last Admin Trade Name Freq PRN Reason Stop Dose Admin Acetaminophen 650 mg 11/01/19 17:27 11/06/19 06:04 Tylenol - PO 650 mg Q6H PRN Administration Fever Albuterol Sulfate 1 amp 11/03/19 13:23 Ventolin 0.083% Nebulizer Soln - NEB Q6H PRN SHORT OF BREATH/WHEEZING Carbidopa/Levodopa 1 each 11/01/19 22:00 11/05/19 23:23 Sinemet 10/100 - PO 1 each BID MAYDA Administration Emtricitabine/Tenofovir 1 tab 11/02/19 10:00 11/06/19 10:31 Truvada PO 1 tab DAILY MAYDA Administration Gabapentin 200 mg 11/02/19 14:00 11/06/19 06:03 Neurontin - PO 200 mg TID MAYDA Administration Heparin Sodium (Porcine) 5,000 unit 11/01/19 22:00 11/06/19 10:15 Heparin - SQ 5,000 unit BID MAYDA Administration Ceftriaxone Sodium 1 gm/ 50 mls @ 100 mls/hr 11/04/19 15:30 11/06/19 10:11 Dextrose IVPB 100 mls/hr DAILY MAYDA Administration Potassium Chloride 10 meq in 100 mls @ 100 mls/hr 11/06/19 10:45 Potassium Chloride 10 Meq Premix Ivpb - IVPB 11/06/19 13:44 Q60M MAYDA Ondansetron HCl 4 mg 11/04/19 09:57 11/05/19 04:31 Zofran Odt - SL 4 mg Q6H PRN Administration NAUSEA AND/OR VOMITING Paroxetine HCl 20 mg 11/02/19 18:00 11/06/19 10:16 Paxil - PO 20 mg DAILY MAYDA Administration Laboratory Results - last 24 hr 11/06/19 11/06/19 07:15 07:15 WBC 6.3 RBC 4.09 Hgb 13.2 Hct 38.9 MCV 95.2 MCH 32.4 MCHC 34.0 RDW 14.0 Plt Count 174 MPV 9.4 Absolute Neuts (auto) 4.3 Neutrophils % 68.1 Lymphocytes % 22.0 D Monocytes % 8.1 Eosinophils % 0.9 Basophils % 0.9 Nucleated RBC % 0 Sodium 136 Potassium 2.9 L* Chloride 104 Carbon Dioxide 24 Anion Gap 8 BUN 17.3 Creatinine 1.1 Est GFR (CKD-EPI)AfAm 58.50 Est GFR (CKD-EPI)NonAf 50.47 Random Glucose 95 Calcium 8.3 L Total Bilirubin 0.4 AST 40 H ALT 20 Alkaline Phosphatase 107 Total Protein 6.4 Albumin 3.1 L S1 S2 RRR Right shoulder ecchymosis right forehead hematoma Lungs decreased breath sounds, occasional ronchi Abd- soft, NT no edema Assessment/Plan iv fluids on iv antibiotics blood cultures negative cxr noted-- will order xray shoulder MRI spine noted-->ordering abd/pelvis CT for abd mass nebs as needed PT Fall precautions nebs Daily oob - chair replace potassium Problem List - Problems (1) HIV (human immunodeficiency virus infection) Code(s): B20 - HUMAN IMMUNODEFICIENCY VIRUS [HIV] DISEASE (2) Frequent falls Code(s): R29.6 - REPEATED FALLS (3) Unwitnessed fall Code(s): R29.6 - REPEATED FALLS
[2019-11-06] MEDS: KCL 10 MEQ IVPB 10 MEQ/100 ML INFUS.BAG IVPB SCH ×3 (12:22→15:56)
[2019-11-06] MEDS: CARBIDOPA/LEVODOPA 10/100 TABLET (FP) PO SCH ×2 (12:26→21:43)
[2019-11-06 15:10] LABS: HYALINE CASTS 24 /lpf (0-8); PH,URINE 8.5 (5.0-8.0); URINE APPEARANCE TURBID; URINE BACTERIA 820.5 /hpf (NEGATIVE); URINE BILIRUBIN NEGATIVE (NEGATIVE); URINE COLOR DK YELLOW; URINE GLUCOSE (UA) NEGATIVE (NEGATIVE); URINE KETONE NEGATIVE (NEGATIVE); URINE LEUK ESTERASE 3+ (NEGATIVE); URINE NITRITE POSITIVE (NEGATIVE); URINE PROTEIN 3+ (NEGATIVE); URINE WBC 1330 /hpf (0-5)
[2019-11-06 15:57] LABS: URINE RBC 4.6 /hpf (0-4); YEAST NONE SEEN (NEGATIVE)
--- NOTE | 2019-11-06 22:05 | HOSP ---
Subjective - Review of Symptoms Events since last encounter: Hospitalist Encounter Notified by the RN, that the patient's urine appeared red with small clots. Was asked to assess. Arrived to bedside, patient is alert and oriented. inspected urine in bedside commode. Urine appeared dark red-brown with pin size clots Plan: Hold Heparin tonight Physical Examination Vital Signs: Vital Signs Temperature 98.4 F 11/06/19 18:00 Pulse Rate 94 H 11/06/19 18:00 Respiratory Rate 20 11/06/19 18:00 Blood Pressure 100/59 L 11/06/19 18:00 O2 Sat by Pulse Oximetry (%) 98 11/06/19 09:00 Constitutional: Yes: Well Nourished, No Distress, Calm Eyes: Yes: WNL, Conjunctiva Clear, EOM Intact, PERRL HENT: Yes: WNL, Atraumatic, Normocephalic Neck: Yes: WNL, Supple, Trachea Midline Cardiovascular: Yes: WNL, Regular Rate and Rhythm, S1, S2 Respiratory: Yes: Diminished, On Nasal O2 Gastrointestinal: Yes: Normal Bowel Sounds, Soft Renal/: Yes: Hematuria Musculoskeletal: Yes: WNL Extremities: Yes: WNL Edema: No Peripheral Pulses WNL: Yes Integumentary: Yes: Bruising (eccyhmotic to RLE) Neurological: Yes: WNL, Alert, Oriented ...Motor Strength: WNL Psychiatric: Yes: WNL, Alert, Oriented Labs: CBC, BMP 11/06/19 07:15 11/06/19 07:15 Hospitalist Encounter Recommendations/Interventions: Reassess urine output tomorrow before restarting Heparin SQ for VTE
[2019-11-07] MEDS: ONDANSETRON *ODT* 4 MG TABLET SL PRN ×2 (03:16→22:16)
[2019-11-07] MEDS: GABAPENTIN 100 MG CAPSULE PO SCH ×3 (05:29→21:16)
[2019-11-07 09:14] LABS: BASO % 0.7 % (0-2.0); EOS % 2.9 % (0-4.5); LYMPH % 27.6 % (8-40); MCH 32.3 pg (25.7-33.7); MCHC 33.4 g/dl (32.0-36.0); MEAN CELL VOLUME 96.6 fl (80-96); MEAN PLT VOLUME 9.4 fl (7.5-11.1); MONO % 10.5 % (3.8-10.2); NEUT % 58.3 % (42.8-82.8); PLATELET COUNT 164 K/MM3 (134-434); RBC 4.04 M/mm3 (3.60-5.2); RDW 14.1 % (11.6-15.6); WHITE BLOOD COUNT 4.8 K/mm3 (4.0-10.0)
[2019-11-07 09:42] LABS: BILIRUBIN,TOTAL 0.4 mg/dL (0.2-1); BLOOD UREA NITROGEN 18.8 mg/dL (7-18); CALCIUM 8.4 mg/dL (8.5-10.1); CREATININE 0.9 mg/dL (0.55-1.3); MAGNESIUM 2.4 mg/dL (1.8-2.4); POTASSIUM 3.9 mmol/L (3.5-5.1); TOT PROT 6.3 g/dl (6.4-8.2)
[2019-11-07] MEDS ORDERED: cefTRIAXone SODIUM 1 GM VIAL ONE (10:48)
[2019-11-07] MEDS ORDERED: DEXTROSE 5%-WATER - 50 ML IVPB ONE (10:48)
[2019-11-07] MEDS ORDERED: PT OWN MED DRAWER 7, Y5N ONE (10:48)
[2019-11-07] MEDS: HEPARIN NA (PORCINE) 5,000 UNITS/ML 1ML VIAL SQ SCH ×2 (11:09→21:16)
[2019-11-07] MEDS: PARoxetine HCL 20 MG TABLET PO SCH (11:09)
[2019-11-07] MEDS: CEFTRIAXONE 1 GM in DEXTROSE 5%-WATER - 50 ML IVPB SCH (11:09)
[2019-11-07] MEDS: DARUNAVIR 800 MG/COBICISTAT 150MG TABLET PO SCH (11:10)
[2019-11-07] MEDS: CARBIDOPA/LEVODOPA 10/100 TABLET (FP) PO SCH ×2 (11:10→21:15)
[2019-11-07] MEDS: EMTRICITABINE 200MG/TENOFOVIR 300MG PO SCH (11:10)
--- NOTE | 2019-11-07 11:26 | PN ---
Progress Note (short form) - Note Progress Note: Pt seen/ examined chart is reviewed awake low grade fever c/o pain in lower back Vital Signs - 24 hr 11/06/19 11/06/19 11/06/19 14:00 18:00 21:00 Temperature 100.4 F H 98.4 F Pulse Rate 78 94 H Respiratory 20 20 Rate Blood Pressure 109/45 L 100/59 L O2 Sat by Pulse 98 Oximetry (%) 11/06/19 11/07/19 11/07/19 22:15 02:00 06:00 Temperature 98.5 F 98.1 F 98.3 F Pulse Rate 67 66 69 Respiratory 18 18 18 Rate Blood Pressure 94/55 L 90/42 L 97/46 L O2 Sat by Pulse Oximetry (%) 11/07/19 10:00 Temperature 100.4 F H Pulse Rate 73 Respiratory 20 Rate Blood Pressure 99/70 O2 Sat by Pulse Oximetry (%) Current Medications Generic Name Dose Route Start Last Admin Trade Name Freq PRN Reason Stop Dose Admin Acetaminophen 650 mg 11/01/19 17:27 11/06/19 21:05 Tylenol - PO 650 mg Q6H PRN Administration Fever Albuterol Sulfate 1 amp 11/03/19 13:23 Ventolin 0.083% Nebulizer Soln - NEB Q6H PRN SHORT OF BREATH/WHEEZING Carbidopa/Levodopa 1 each 11/01/19 22:00 11/07/19 11:10 Sinemet 10/100 - PO 1 each BID MAYDA Administration Emtricitabine/Tenofovir 1 tab 11/02/19 10:00 11/07/19 11:10 Truvada PO 1 tab DAILY MAYDA Administration Gabapentin 200 mg 11/02/19 14:00 11/07/19 05:29 Neurontin - PO 200 mg TID MAYDA Administration Heparin Sodium (Porcine) 5,000 unit 11/01/19 22:00 11/07/19 11:09 Heparin - SQ 5,000 unit BID MAYDA Administration Ceftriaxone Sodium 1 gm/ 50 mls @ 100 mls/hr 11/04/19 15:30 11/07/19 11:09 Dextrose IVPB 100 mls/hr DAILY MAYDA Administration Ondansetron HCl 4 mg 11/04/19 09:57 11/07/19 03:16 Zofran Odt - SL 4 mg Q6H PRN Administration NAUSEA AND/OR VOMITING Paroxetine HCl 20 mg 11/02/19 18:00 11/07/19 11:09 Paxil - PO 20 mg DAILY MAYDA Administration Laboratory Results - last 24 hr 11/06/19 11/07/19 11/07/19 12:45 07:35 07:35 WBC 4.8 RBC 4.04 Hgb 13.0 Hct 39.0 MCV 96.6 H MCH 32.3 MCHC 33.4 RDW 14.1 Plt Count 164 MPV 9.4 Absolute Neuts (auto) 2.8 Neutrophils % 58.3 Lymphocytes % 27.6 D Monocytes % 10.5 H Eosinophils % 2.9 D Basophils % 0.7 Nucleated RBC % 0 Sodium 137 Potassium 3.9 Chloride 104 Carbon Dioxide 26 Anion Gap 7 L BUN 18.8 H Creatinine 0.9 Est GFR (CKD-EPI)AfAm 74.56 Est GFR (CKD-EPI)NonAf 64.33 Random Glucose 68 L Calcium 8.4 L Magnesium 2.4 Total Bilirubin 0.4 AST 37 ALT 25 Alkaline Phosphatase 95 Total Protein 6.3 L Albumin 3.0 L Urine Color Dk yellow Urine Appearance Turbid Urine pH 8.5 H D Ur Specific Robinson 1.018 Urine Protein 3+ H Urine Glucose (UA) Negative Urine Ketones Negative Urine Blood 3+ H Urine Nitrite Positive H Urine Bilirubin Negative Urine Urobilinogen 1.0 Ur Leukocyte Esterase 3+ H Urine WBC (Auto) 1330 Urine RBC (Auto) 4.6 Urine Casts (Auto) 24 U Epithel Cells (Auto) 1.0 Urine Bacteria (Auto) 820.5 Urine Yeast (Auto) None seen Microbiology 11/04/19 17:15 Blood Culture - Preliminary Blood - Peripheral Venous NO GROWTH OBTAINED AFTER 48 HOURS, INCUBATION TO CONTINUE FOR 3 DAYS. 11/04/19 16:55 Blood Culture - Preliminary Blood - Peripheral Venous NO GROWTH OBTAINED AFTER 48 HOURS, INCUBATION TO CONTINUE FOR 3 DAYS. 11/04/19 20:00 Urine Culture - Final Urine - Urine - Catheterized Contaminated: Please Repeat S1 S2 RRR Right shoulder ecchymosis right forehead hematoma Lungs decreased breath sounds, occasional ronchi Abd- soft, NT no edema Assessment/Plan nebs pt has an unsteady gait -- needs STR on iv antibiotics blood cultures negative xray shoulder negative MRI spine noted-->ordering abd/pelvis CT for abd mass-- done , report pending nebs as needed PT Fall precautions nebs Daily oob - chair lidocaine patch for back pain Problem List - Problems (1) HIV (human immunodeficiency virus infection) Code(s): B20 - HUMAN IMMUNODEFICIENCY VIRUS [HIV] DISEASE (2) Frequent falls Code(s): R29.6 - REPEATED FALLS (3) Unwitnessed fall Code(s): R29.6 - REPEATED FALLS
[2019-11-07] MEDS: ACETAMINOPHEN 325 MG TABLET (FP) PO PRN (13:17)
[2019-11-07] MEDS: LIDOCAINE 5% TOPICAL PATCH TP SCH (13:17)
--- NOTE | 2019-11-07 18:51 | PN ---
Progress Note, Physician History of Present Illness: events noted Still slightly confused No lazara e Normal attentions Follow commands - Current Medication List Current Medications: Active Medications Acetaminophen (Tylenol -) 650 mg PO Q6H PRN PRN Reason: Fever Last Admin: 11/07/19 13:17 Dose: 650 mg Albuterol Sulfate (Ventolin 0.083% Nebulizer Soln -) 1 amp NEB Q6H PRN PRN Reason: SHORT OF BREATH/WHEEZING Carbidopa/Levodopa (Sinemet 10/100 -) 1 each PO BID [facility] Last Admin: 11/07/19 11:10 Dose: 1 each Emtricitabine/Tenofovir (Truvada) 1 tab PO DAILY [facility] Last Admin: 11/07/19 11:10 Dose: 1 tab Gabapentin (Neurontin -) 200 mg PO TID [facility] Last Admin: 11/07/19 13:20 Dose: 200 mg Heparin Sodium (Porcine) (Heparin -) 5,000 unit SQ BID [facility] Last Admin: 11/07/19 11:09 Dose: 5,000 unit Ceftriaxone Sodium 1 gm/ (Dextrose) 50 mls @ 100 mls/hr IVPB DAILY [facility] Last Admin: 11/07/19 11:09 Dose: 100 mls/hr Lidocaine (Lidoderm Patch -) 1 patch TP DAILY [facility] Last Admin: 11/07/19 13:17 Dose: 1 patch Miscellaneous (Lidoderm Patch Removal) 1 each MC DAILY@2200 [facility] Ondansetron HCl (Zofran Odt -) 4 mg SL Q6H PRN PRN Reason: NAUSEA AND/OR VOMITING Last Admin: 11/07/19 03:16 Dose: 4 mg Paroxetine HCl (Paxil -) 20 mg PO DAILY [facility] Last Admin: 11/07/19 11:09 Dose: 20 mg - Objective Vital Signs: Vital Signs Temperature 99.5 F 11/07/19 14:00 Pulse Rate 85 11/07/19 14:00 Respiratory Rate 20 11/07/19 14:00 Blood Pressure 129/71 11/07/19 14:00 O2 Sat by Pulse Oximetry (%) 98 11/07/19 09:00 Constitutional: Yes: Well Nourished Eyes: Yes: WNL Neurological: Yes: Alert, Oriented, Babinski positive ...Motor Strength: WNL Labs: CBC, BMP 11/07/19 07:35 11/07/19 07:35 INR, PTT INR 0.95 (0.83-1.09) 11/01/19 09:10 Problem List - Problems (1) Frequent falls Code(s): R29.6 - REPEATED FALLS (2) HIV (human immunodeficiency virus infection) Code(s): B20 - HUMAN IMMUNODEFICIENCY VIRUS [HIV] DISEASE Assessment/Plan 1. Fall precautions 2. Need GI surgery eval due to stomach mass 3. PT 4. DVT prophylaxis 5. Add Cyclobenz
[2019-11-07] MEDS: LIDOCAINE PATCH REMOVAL MC SCH (21:16)
[2019-11-08] MEDS: GABAPENTIN 100 MG CAPSULE PO SCH ×3 (05:37→22:49)
[2019-11-08] MEDS: ACETAMINOPHEN 325 MG TABLET (FP) PO PRN ×2 (05:38→17:40)
[2019-11-08] MEDS ORDERED: cefTRIAXone SODIUM 1 GM VIAL ONE (11:07)
[2019-11-08] MEDS ORDERED: DEXTROSE 5%-WATER - 50 ML IVPB ONE (11:07)
[2019-11-08] MEDS ORDERED: PT OWN MED DRAWER 7, Y5N ONE ×2 (11:07→22:47)
[2019-11-08] MEDS: LIDOCAINE 5% TOPICAL PATCH TP SCH (11:29)
[2019-11-08] MEDS: CEFTRIAXONE 1 GM in DEXTROSE 5%-WATER - 50 ML IVPB SCH (11:29)
[2019-11-08] MEDS: CYCLOBENZAPRINE HCL 5 MG TABLET PO SCH (11:30)
[2019-11-08] MEDS: HEPARIN NA (PORCINE) 5,000 UNITS/ML 1ML VIAL SQ SCH ×2 (11:30→22:49)
[2019-11-08] MEDS: PARoxetine HCL 20 MG TABLET PO SCH (11:30)
[2019-11-08] MEDS: EMTRICITABINE 200MG/TENOFOVIR 300MG PO SCH (11:31)
[2019-11-08] MEDS: DARUNAVIR 800 MG/COBICISTAT 150MG TABLET PO SCH (11:31)
[2019-11-08] MEDS: CARBIDOPA/LEVODOPA 10/100 TABLET (FP) PO SCH ×2 (11:31→22:49)
--- NOTE | 2019-11-08 13:39 | PN ---
Progress Note (short form) - Note Progress Note: Pt seen/ examined chart is reviewed awake no fever back pain better with lidocaine Vital Signs - 24 hr 11/07/19 11/07/19 11/07/19 14:00 18:00 21:00 Temperature 99.5 F 98.4 F Pulse Rate 85 73 Respiratory 20 20 Rate Blood Pressure 129/71 103/58 L O2 Sat by Pulse 93 L Oximetry (%) 11/07/19 11/08/19 11/08/19 21:24 01:39 02:00 Temperature 99.6 F Pulse Rate 68 77 Respiratory 18 20 Rate Blood Pressure 105/47 L 146/78 O2 Sat by Pulse Oximetry (%) 11/08/19 11/08/19 11/08/19 05:43 06:00 09:00 Temperature 99.1 F 98.5 F Pulse Rate 75 Respiratory 20 Rate Blood Pressure 134/74 O2 Sat by Pulse 92 L Oximetry (%) 11/08/19 10:00 Temperature 98.9 F Pulse Rate 80 Respiratory 20 Rate Blood Pressure 98/75 O2 Sat by Pulse Oximetry (%) Current Medications Generic Name Dose Route Start Last Admin Trade Name Freq PRN Reason Stop Dose Admin Acetaminophen 650 mg 11/01/19 17:27 11/08/19 05:38 Tylenol - PO 650 mg Q6H PRN Administration Fever Albuterol Sulfate 1 amp 11/03/19 13:23 Ventolin 0.083% Nebulizer Soln - NEB Q6H PRN SHORT OF BREATH/WHEEZING Carbidopa/Levodopa 1 each 11/01/19 22:00 11/08/19 11:31 Sinemet 10/100 - PO 1 each BID MAYDA Administration Cyclobenzaprine HCl 5 mg 11/08/19 10:00 11/08/19 11:30 Cyclobenzaprine Hcl PO 5 mg DAILY MAYDA Administration Emtricitabine/Tenofovir 1 tab 11/02/19 10:00 11/08/19 11:31 Truvada PO 1 tab DAILY MAYDA Administration Gabapentin 200 mg 11/02/19 14:00 11/08/19 05:37 Neurontin - PO 200 mg TID MAYDA Administration Heparin Sodium (Porcine) 5,000 unit 11/01/19 22:00 11/08/19 11:30 Heparin - SQ 5,000 unit BID MAYDA Administration Ceftriaxone Sodium 1 gm/ 50 mls @ 100 mls/hr 11/04/19 15:30 11/08/19 11:29 Dextrose IVPB 100 mls/hr DAILY MAYDA Administration Lidocaine 1 patch 11/07/19 11:30 11/08/19 11:29 Lidoderm Patch - TP 1 patch DAILY MAYDA Administration Miscellaneous 1 each 11/07/19 22:00 11/07/19 21:16 Lidoderm Patch Removal MC 1 each DAILY@2200 MAYDA Administration Ondansetron HCl 4 mg 11/04/19 09:57 11/07/19 22:16 Zofran Odt - SL 4 mg Q6H PRN Administration NAUSEA AND/OR VOMITING Paroxetine HCl 20 mg 11/02/19 18:00 11/08/19 11:30 Paxil - PO 20 mg DAILY MAYDA Administration S1 S2 RRR Right shoulder ecchymosis right forehead hematoma Lungs decreased breath sounds, occasional ronchi Abd- soft, NT no edema Assessment/Plan nebs pt has an unsteady gait -- needs STR on iv antibiotics blood cultures negative xray shoulder negative CT ABD/PELVIS-- stomach mass-->GI eval nebs as needed PT Fall precautions nebs Daily oob - chair lidocaine patch for back pain Problem List - Problems (1) HIV (human immunodeficiency virus infection) Code(s): B20 - HUMAN IMMUNODEFICIENCY VIRUS [HIV] DISEASE (2) Frequent falls Code(s): R29.6 - REPEATED FALLS (3) Unwitnessed fall Code(s): R29.6 - REPEATED FALLS
[2019-11-08] MEDS: ONDANSETRON *ODT* 4 MG TABLET SL PRN (14:08)
--- NOTE | 2019-11-08 18:14 | CON.GI ---
Consult Consult Specialty:: gi coverage for Dr العراقي - History of Present Illness History of Present Illness: Patient was asked to be seen because of a gastric mass noted by brayan. 69 y/o F with PMH of HIV unsteady gait, numbness and frequent falls who underwent MRI to rule out cord compression. Incidental finding of possible mass in the liver was noted. CT was done which revealed a 3cm gastric mass. Patient complains of vague epigastric pain, early satiety,h/o of NSAID use - Past Medical History Hepatobiliary: Yes: Hepatitis C (Status post interferon) Infectious Disease: Yes: HIV (she sees Dr. Rouse) - Alcohol/Substance Use Hx Alcohol Use: No - Smoking History Smoking history: Current every day smoker Have you smoked in the past 12 months: Yes Aproximately how many cigarettes per day: 5 Home Medications - Allergies Allergies/Adverse Reactions: Allergies Allergy/AdvReac Type Severity Reaction Status Date / Time No Known Allergies Allergy Verified 06/17/13 12:03 - Home Medications Home Medications: Ambulatory Orders Acetaminophen W/ Codeine #3 [Tylenol W/Codeine #3] 1 combo NR Q4HWA #0 tablet Gabapentin [Neurontin] 1,200 mg PO BID 01/12/12 Paroxetine HCl [Paxil] 20 mg PO TID 01/12/12 Ritonavir Oral Solution [Norvir] 100 mg PO ONCE 01/12/12 Physical Exam-GI Vital Signs: Vital Signs Temperature 100.1 F H 11/08/19 17:39 Pulse Rate 76 11/08/19 14:00 Respiratory Rate 20 11/08/19 14:00 Blood Pressure 117/61 11/08/19 14:00 O2 Sat by Pulse Oximetry (%) 92 L 11/08/19 09:00 Constitutional: Yes: Well Nourished Eyes: Yes: Conjunctiva Clear HENT: Yes: Atraumatic Neck: Yes: Supple Cardiovascular: Yes: Regular Rate and Rhythm Respiratory: Yes: CTA Bilaterally ...Palpate: Yes: Soft. No: Firm/Rigid, Guarding, Hepatomegaly, Mass, Pulsatile Mass, Splenomegaly, Tenderness Labs: CBC, BMP 11/07/19 07:35 11/07/19 07:35 INR, PTT INR 0.95 (0.83-1.09) 11/01/19 09:10 Problem List - Problems (1) Gastric mass Assessment/Plan: r/o PUD vs malignancy R> Pantoprazole 40mg daily FOR EGD once medically cleared Dr العراقي will resume care in am Code(s): K31.89 - OTHER DISEASES OF STOMACH AND DUODENUM
[2019-11-08] MEDS: LIDOCAINE PATCH REMOVAL MC SCH (22:50)
[2019-11-09] MEDS: ACETAMINOPHEN 325 MG TABLET (FP) PO PRN ×3 (00:41→21:47)
[2019-11-09] MEDS: GABAPENTIN 100 MG CAPSULE PO SCH ×3 (06:41→21:47)
[2019-11-09 08:33] LABS: HEMATOCRIT 43.6 % (32.4-45.2); HEMOGLOBIN 14.6 GM/dL (10.7-15.3); MCH 32.4 pg (25.7-33.7); MCHC 33.4 g/dl (32.0-36.0); MEAN CELL VOLUME 97.1 fl (80-96); MEAN PLT VOLUME 9.2 fl (7.5-11.1); PLATELET COUNT 161 K/MM3 (134-434); RBC 4.49 M/mm3 (3.60-5.2); RDW 14.1 % (11.6-15.6)
[2019-11-09 08:59] LABS: ALBUMIN 3.2 g/dl (3.4-5.0); BILIRUBIN,TOTAL 0.4 mg/dL (0.2-1); BLOOD UREA NITROGEN 13.3 mg/dL (7-18); CALCIUM 8.9 mg/dL (8.5-10.1); CREATININE 0.9 mg/dL (0.55-1.3); POTASSIUM 3.5 mmol/L (3.5-5.1); TOT PROT 7.1 g/dl (6.4-8.2)
[2019-11-09] MEDS ORDERED: PT OWN MED DRAWER 7, Y5N ONE ×2 (10:38→21:35)
[2019-11-09] MEDS: PARoxetine HCL 20 MG TABLET PO SCH (10:52)
[2019-11-09] MEDS: EMTRICITABINE 200MG/TENOFOVIR 300MG PO SCH (10:52)
[2019-11-09] MEDS: LIDOCAINE 5% TOPICAL PATCH TP SCH (10:52)
[2019-11-09] MEDS: CYCLOBENZAPRINE HCL 5 MG TABLET PO SCH (10:52)
[2019-11-09] MEDS: DARUNAVIR 800 MG/COBICISTAT 150MG TABLET PO SCH (10:52)
[2019-11-09] MEDS: HEPARIN NA (PORCINE) 5,000 UNITS/ML 1ML VIAL SQ SCH ×2 (10:52→21:47)
[2019-11-09] MEDS: CARBIDOPA/LEVODOPA 10/100 TABLET (FP) PO SCH ×2 (10:53→21:48)
--- NOTE | 2019-11-09 11:04 | PN ---
Progress Note, Physician History of Present Illness: Pt seen/ examined chart reviewed awake/ comfortable feels better - Current Medication List Current Medications: Active Medications Acetaminophen (Tylenol -) 650 mg PO Q6H PRN PRN Reason: Fever Last Admin: 11/09/19 00:41 Dose: 650 mg Albuterol Sulfate (Ventolin 0.083% Nebulizer Soln -) 1 amp NEB Q6H PRN PRN Reason: SHORT OF BREATH/WHEEZING Carbidopa/Levodopa (Sinemet 10/100 -) 1 each PO BID [facility] Last Admin: 11/08/19 22:49 Dose: 1 each Cyclobenzaprine HCl (Cyclobenzaprine Hcl) 5 mg PO DAILY [facility] Last Admin: 11/08/19 11:30 Dose: 5 mg Emtricitabine/Tenofovir (Truvada) 1 tab PO DAILY [facility] Last Admin: 11/08/19 11:31 Dose: 1 tab Gabapentin (Neurontin -) 200 mg PO TID [facility] Last Admin: 11/09/19 06:41 Dose: 200 mg Heparin Sodium (Porcine) (Heparin -) 5,000 unit SQ BID [facility] Last Admin: 11/08/19 22:49 Dose: 5,000 unit Ceftriaxone Sodium 1 gm/ (Dextrose) 50 mls @ 100 mls/hr IVPB DAILY [facility] Last Admin: 11/08/19 11:29 Dose: 100 mls/hr Lidocaine (Lidoderm Patch -) 1 patch TP DAILY [facility] Last Admin: 11/08/19 11:29 Dose: 1 patch Miscellaneous (Lidoderm Patch Removal) 1 each MC DAILY@2200 [facility] Last Admin: 11/08/19 22:50 Dose: 1 each Ondansetron HCl (Zofran Odt -) 4 mg SL Q6H PRN PRN Reason: NAUSEA AND/OR VOMITING Last Admin: 11/08/19 14:08 Dose: 4 mg Paroxetine HCl (Paxil -) 20 mg PO DAILY [facility] Last Admin: 11/08/19 11:30 Dose: 20 mg - Objective Vital Signs: Vital Signs Temperature 98.4 F 11/09/19 06:00 Pulse Rate 63 11/09/19 06:00 Respiratory Rate 20 11/09/19 06:00 Blood Pressure 100/43 L 11/09/19 06:00 O2 Sat by Pulse Oximetry (%) 94 L 11/08/19 21:00 Constitutional: Yes: No Distress, Calm Eyes: Yes: Conjunctiva Clear Neck: Yes: Supple Cardiovascular: Yes: Regular Rate and Rhythm Respiratory: Yes: Diminished Gastrointestinal: Yes: Soft Edema: No Neurological: Yes: Alert Psychiatric: Yes: Alert Labs: CBC, BMP 11/09/19 07:48 11/09/19 07:48 INR, PTT INR 0.95 (0.83-1.09) 11/01/19 09:10 - ....Imaging Cat Scan: Report Reviewed Problem List - Problems (1) Back pain Code(s): M54.9 - DORSALGIA, UNSPECIFIED (2) Mood disorder Code(s): F39 - UNSPECIFIED MOOD [AFFECTIVE] DISORDER (3) Frequent falls Code(s): R29.6 - REPEATED FALLS (4) HIV (human immunodeficiency virus infection) Code(s): B20 - HUMAN IMMUNODEFICIENCY VIRUS [HIV] DISEASE (5) Fever Code(s): R50.9 - FEVER, UNSPECIFIED (6) UTI (urinary tract infection) Code(s): N39.0 - URINARY TRACT INFECTION, SITE NOT SPECIFIED (7) Gastric mass Code(s): K31.89 - OTHER DISEASES OF STOMACH AND DUODENUM Assessment/Plan clinically stable abx -- per i/d-- i/d to follow d/c in am abx ? Endoscopy to be planned for gastric mass f/u labs oob - chair PT Will follow
[2019-11-09] MEDS ORDERED: DEXTROSE 5%-WATER - 50 ML IVPB ONE (12:17)
[2019-11-09] MEDS ORDERED: cefTRIAXone SODIUM 1 GM VIAL ONE (12:17)
[2019-11-09] MEDS: CEFTRIAXONE 1 GM in DEXTROSE 5%-WATER - 50 ML IVPB SCH (12:35)
--- NOTE | 2019-11-09 12:39 | PN.GI ---
GI Progress Note Subjective: No vomiting No acute events Low grade temp last night - Objective Vital Signs: Vital Signs Temperature 98.4 F 11/09/19 06:00 Pulse Rate 63 11/09/19 06:00 Respiratory Rate 11/09/19 06:00 Blood Pressure 100/43 L 11/09/19 06:00 O2 Sat by Pulse Oximetry (%) 94 L 11/08/19 21:00 Constitutional: Calm Eyes: No: Sclera Icterus Cardiovascular: Yes: Regular Rate and Rhythm Respiratory: Yes: CTA Bilaterally Gastrointestinal Inspection: Yes: Scars (healed trochar scars), Other (Large pannus limiting evaluation) ...Auscultate: Yes: Normoactive Bowel Sounds ...Palpate: Yes: Soft. No: Tenderness ...Percussion: No: Tympanitic Neurological: Yes: Alert Labs: CBC, BMP 11/09/19 07:48 11/09/19 07:48 INR, PTT INR 0.95 (0.83-1.09) 11/01/19 09:10 Problem List - Problems (1) Gastric mass Assessment/Plan: Concern for gastric mass on admission imaging. Discussed plan for EGD with Ms. Rodney for further investigation. Discussed potential risks of the procedure like but not limtied to bleeding, perforation requiring surgery to repair, infection sedation medication effects all of which could be potentially life threatening. She has agreed to the procedure. Plan for Sunday 11/12 Code(s): K31.89 - OTHER DISEASES OF STOMACH AND DUODENUM
--- NOTE | 2019-11-09 20:29 | PN ---
Progress Note, Physician History of Present Illness: AWAKE IN BED REPORTS DYSURIA RESOLVED NO FEVER/CHILLS + URINE C/S ENTEROCOCCUS - Current Medication List Current Medications: Active Medications Acetaminophen (Tylenol -) 650 mg PO Q6H PRN PRN Reason: Fever Last Admin: 11/09/19 14:31 Dose: 650 mg Albuterol Sulfate (Ventolin 0.083% Nebulizer Soln -) 1 amp NEB Q6H PRN PRN Reason: SHORT OF BREATH/WHEEZING Amoxicillin (Amoxicillin -) 500 mg PO TID [facility] Carbidopa/Levodopa (Sinemet 10/100 -) 1 each PO BID [facility] Last Admin: 11/09/19 10:53 Dose: 1 each Cyclobenzaprine HCl (Cyclobenzaprine Hcl) 5 mg PO DAILY [facility] Last Admin: 11/09/19 10:52 Dose: 5 mg Emtricitabine/Tenofovir (Truvada) 1 tab PO DAILY [facility] Last Admin: 11/09/19 10:52 Dose: 1 tab Gabapentin (Neurontin -) 200 mg PO TID [facility] Last Admin: 11/09/19 14:31 Dose: 200 mg Heparin Sodium (Porcine) (Heparin -) 5,000 unit SQ BID [facility] Last Admin: 11/09/19 10:52 Dose: 5,000 unit Lidocaine (Lidoderm Patch -) 1 patch TP DAILY [facility] Last Admin: 11/09/19 10:52 Dose: 1 patch Miscellaneous (Lidoderm Patch Removal) 1 each MC DAILY@2200 [facility] Last Admin: 11/08/19 22:50 Dose: 1 each Ondansetron HCl (Zofran Odt -) 4 mg SL Q6H PRN PRN Reason: NAUSEA AND/OR VOMITING Last Admin: 11/08/19 14:08 Dose: 4 mg Paroxetine HCl (Paxil -) 20 mg PO DAILY [facility] Last Admin: 11/09/19 10:52 Dose: 20 mg - Objective Vital Signs: Vital Signs Temperature 98.5 F 11/09/19 18:00 Pulse Rate 72 11/09/19 18:00 Respiratory Rate 20 11/09/19 18:00 Blood Pressure 97/57 L 11/09/19 18:00 O2 Sat by Pulse Oximetry (%) 94 L 11/09/19 09:00 Constitutional: Yes: No Distress Cardiovascular: Yes: Regular Rate and Rhythm, S1, S2 Respiratory: Yes: CTA Bilaterally Gastrointestinal: Yes: Normal Bowel Sounds, Soft Edema: No Labs: CBC, BMP 11/09/19 07:48 11/09/19 07:48 INR, PTT INR 0.95 (0.83-1.09) 11/01/19 09:10 Assessment/Plan UTI ENTEROCOCCUS HIV+ STABLE SUBSTITUTE AMOXICILLIN 500MG PO TID X 7D
[2019-11-09] MEDS: AMOXICILLIN 500 MG CAPSULE (FP) PO SCH (21:48)
[2019-11-09] MEDS: LIDOCAINE PATCH REMOVAL MC SCH (21:50)
[2019-11-10] MEDS: GABAPENTIN 100 MG CAPSULE PO SCH ×3 (06:44→21:16)
[2019-11-10] MEDS: ACETAMINOPHEN 325 MG TABLET (FP) PO PRN ×3 (06:44→21:16)
[2019-11-10] MEDS: AMOXICILLIN 500 MG CAPSULE (FP) PO SCH ×3 (06:44→21:16)
[2019-11-10] MEDS ORDERED: PT OWN MED DRAWER 7, Y5N ONE ×2 (09:56→15:02)
[2019-11-10] MEDS: CARBIDOPA/LEVODOPA 10/100 TABLET (FP) PO SCH ×2 (10:04→21:16)
[2019-11-10] MEDS: DARUNAVIR 800 MG/COBICISTAT 150MG TABLET PO SCH (10:04)
[2019-11-10] MEDS: ONDANSETRON *ODT* 4 MG TABLET SL PRN (10:04)
[2019-11-10] MEDS: EMTRICITABINE 200MG/TENOFOVIR 300MG PO SCH (10:05)
[2019-11-10] MEDS: HEPARIN NA (PORCINE) 5,000 UNITS/ML 1ML VIAL SQ SCH ×2 (10:06→21:42)
[2019-11-10] MEDS: CYCLOBENZAPRINE HCL 5 MG TABLET PO SCH (10:06)
[2019-11-10] MEDS: LIDOCAINE 5% TOPICAL PATCH TP SCH (10:07)
[2019-11-10] MEDS: PARoxetine HCL 20 MG TABLET PO SCH (10:07)
--- NOTE | 2019-11-10 14:14 | PN.GI ---
GI Progress Note Subjective: coverage for DR العراقي. still with mild epigastric pain, early satiety - Objective Vital Signs: Vital Signs Temperature 98.0 F 11/10/19 06:00 Pulse Rate 59 L 11/10/19 06:00 Respiratory Rate 11/10/19 06:00 Blood Pressure 115/56 L 11/10/19 06:00 O2 Sat by Pulse Oximetry (%) 97 11/09/19 21:00 Constitutional: Well Nourished Eyes: Yes: Conjunctiva Clear, Occular Prosthesis Neck: Yes: Supple Cardiovascular: Yes: Regular Rate and Rhythm Respiratory: Yes: CTA Bilaterally ...Palpate: Yes: Soft, Tenderness, Epigastium. No: Firm/Rigid, Guarding, Hepatomegaly, Mass, Pulsatile Mass, Splenomegaly Labs: CBC, BMP 11/09/19 07:48 11/09/19 07:48 INR, PTT INR 0.95 (0.83-1.09) 11/01/19 09:10 Problem List - Problems (1) Gastric mass Assessment/Plan: R> for EGD silvano patient is aware Code(s): K31.89 - OTHER DISEASES OF STOMACH AND DUODENUM
--- NOTE | 2019-11-10 15:35 | PN ---
Progress Note (short form) - Note Progress Note: Pt seen/ examined chart is reviewed awake no fever back pain better with lidocaine Vital Signs - 24 hr 11/09/19 11/09/19 11/09/19 15:57 18:00 21:00 Temperature 98.5 F Pulse Rate 79 72 Respiratory 20 20 Rate Blood Pressure 118/66 97/57 L O2 Sat by Pulse 97 Oximetry (%) 11/09/19 11/10/19 11/10/19 22:00 02:00 06:00 Temperature 98.6 F 98.6 F 98.0 F Pulse Rate 69 67 59 L Respiratory 20 20 20 Rate Blood Pressure 103/60 118/56 L 115/56 L O2 Sat by Pulse Oximetry (%) Current Medications Generic Name Dose Route Start Last Admin Trade Name Freq PRN Reason Stop Dose Admin Acetaminophen 650 mg 11/01/19 17:27 11/10/19 14:57 Tylenol - PO 650 mg Q6H PRN Administration Fever Albuterol Sulfate 1 amp 11/03/19 13:23 Ventolin 0.083% Nebulizer Soln - NEB Q6H PRN SHORT OF BREATH/WHEEZING Amoxicillin 500 mg 11/09/19 22:00 11/10/19 14:57 Amoxicillin - PO 500 mg TID MAYDA Administration Carbidopa/Levodopa 1 each 11/01/19 22:00 11/10/19 10:04 Sinemet 10/100 - PO 1 each BID [facility] Administration Cyclobenzaprine HCl 5 mg 11/08/19 10:00 11/10/19 10:06 Cyclobenzaprine Hcl PO 5 mg DAILY [facility] Administration Emtricitabine/Tenofovir 1 tab 11/02/19 10:00 11/10/19 10:05 Truvada PO 1 tab DAILY [facility] Administration Gabapentin 200 mg 11/02/19 14:00 11/10/19 14:58 Neurontin - PO 200 mg TID [facility] Administration Heparin Sodium (Porcine) 5,000 unit 11/01/19 22:00 11/10/19 10:06 Heparin - SQ 5,000 unit BID [facility] Administration Lidocaine 1 patch 11/07/19 11:30 11/10/19 10:07 Lidoderm Patch - TP 1 patch DAILY [facility] Administration Miscellaneous 1 each 11/07/19 22:00 11/09/19 21:50 Lidoderm Patch Removal MC 1 each DAILY@2200 [facility] Administration Ondansetron HCl 4 mg 11/04/19 09:57 11/10/19 10:04 Zofran Odt - SL 4 mg Q6H PRN Administration NAUSEA AND/OR VOMITING Paroxetine HCl 20 mg 11/02/19 18:00 11/10/19 10:07 Paxil - PO 20 mg DAILY [facility] Administration Microbiology 11/04/19 17:15 Blood Culture - Final Blood - Peripheral Venous NO GROWTH AFTER 5 DAYS INCUBATION 11/04/19 16:55 Blood Culture - Final Blood - Peripheral Venous NO GROWTH AFTER 5 DAYS INCUBATION 11/06/19 21:45 Urine Culture - Final Urine - Urine Clean Catch Enterococcus Faecalis S1 S2 RRR Right shoulder ecchymosis right forehead hematoma Lungs decreased breath sounds, occasional ronchi Abd- soft, NT no edema Assessment/Plan nebs pt has an unsteady gait -- needs STR on iv antibiotics blood cultures negative xray shoulder negative CT ABD/PELVIS-- stomach mass-->GI eval noted-- for EGD Tuesday spoke with son yesterday nebs as needed PT Fall precautions nebs Daily oob - chair lidocaine patch for back pain Problem List - Problems (1) HIV (human immunodeficiency virus infection) Code(s): B20 - HUMAN IMMUNODEFICIENCY VIRUS [HIV] DISEASE (2) Frequent falls Code(s): R29.6 - REPEATED FALLS (3) Unwitnessed fall Code(s): R29.6 - REPEATED FALLS
[2019-11-10] MEDS: LIDOCAINE PATCH REMOVAL MC SCH (23:27)
[2019-11-11] MEDS: ACETAMINOPHEN 325 MG TABLET (FP) PO PRN (04:21)
[2019-11-11] MEDS: AMOXICILLIN 500 MG CAPSULE (FP) PO SCH ×3 (06:15→22:05)
[2019-11-11] MEDS: GABAPENTIN 100 MG CAPSULE PO SCH ×3 (06:15→22:05)
[2019-11-11] MEDS: ONDANSETRON *ODT* 4 MG TABLET SL PRN (06:56)
[2019-11-11] MEDS ORDERED: PT OWN MED DRAWER 7, Y5N ONE (09:32)
[2019-11-11] MEDS: CYCLOBENZAPRINE HCL 5 MG TABLET PO SCH (09:39)
[2019-11-11] MEDS: HEPARIN NA (PORCINE) 5,000 UNITS/ML 1ML VIAL SQ SCH ×2 (09:39→22:05)
[2019-11-11] MEDS: CARBIDOPA/LEVODOPA 10/100 TABLET (FP) PO SCH ×2 (09:40→22:05)
[2019-11-11] MEDS: LIDOCAINE 5% TOPICAL PATCH TP SCH (09:40)
[2019-11-11] MEDS: DARUNAVIR 800 MG/COBICISTAT 150MG TABLET PO SCH (09:40)
[2019-11-11] MEDS: EMTRICITABINE 200MG/TENOFOVIR 300MG PO SCH (09:40)
[2019-11-11] MEDS: PARoxetine HCL 20 MG TABLET PO SCH (09:40)
--- NOTE | 2019-11-11 10:53 | PN ---
Progress Note (short form) - Note Progress Note: Pt seen/ examined chart is reviewed awake no fever back pain better with lidocaine has pain in abdomen decreased appetite Vital Signs - 24 hr 11/10/19 11/11/19 11/11/19 21:14 01:00 05:00 Temperature 98.4 F 98.8 F Pulse Rate 67 65 Respiratory 20 20 Rate Blood Pressure 101/48 L 99/54 L O2 Sat by Pulse Oximetry (%) 11/11/19 11/11/19 11/11/19 09:00 13:00 18:00 Temperature 98.8 F 98.5 F 98.4 F Pulse Rate 67 65 66 Respiratory 20 20 20 Rate Blood Pressure 106/56 L 100/47 L 106/54 L O2 Sat by Pulse 94 L Oximetry (%) Current Medications Generic Name Dose Route Start Last Admin Trade Name Freq PRN Reason Stop Dose Admin Acetaminophen 650 mg 11/01/19 17:27 11/11/19 04:21 Tylenol - PO 650 mg Q6H PRN Administration Fever Albuterol Sulfate 1 amp 11/03/19 13:23 Ventolin 0.083% Nebulizer Soln - NEB Q6H PRN SHORT OF BREATH/WHEEZING Amoxicillin 500 mg 11/09/19 22:00 11/11/19 13:52 Amoxicillin - PO 500 mg TID [facility] Administration Baclofen 10 mg 11/11/19 11:15 11/11/19 17:01 Lioresal - PO Not Given BID [facility] Carbidopa/Levodopa 1 each 11/01/19 22:00 11/11/19 09:40 Sinemet 10/100 - PO 1 each BID [facility] Administration Cyclobenzaprine HCl 5 mg 11/08/19 10:00 11/11/19 09:39 Cyclobenzaprine Hcl PO 5 mg DAILY [facility] Administration Emtricitabine/Tenofovir 1 tab 11/02/19 10:00 11/11/19 09:40 Truvada PO 1 tab DAILY [facility] Administration Gabapentin 200 mg 11/02/19 14:00 11/11/19 13:52 Neurontin - PO 200 mg TID [facility] Administration Heparin Sodium (Porcine) 5,000 unit 11/01/19 22:00 11/11/19 09:39 Heparin - SQ 5,000 unit BID [facility] Administration Lidocaine 1 patch 11/07/19 11:30 11/11/19 09:40 Lidoderm Patch - TP 1 patch DAILY [facility] Administration Miscellaneous 1 each 11/07/19 22:00 11/10/19 23:27 Lidoderm Patch Removal MC 1 each DAILY@2200 [facility] Administration Ondansetron HCl 4 mg 11/04/19 09:57 11/11/19 06:56 Zofran Odt - SL 4 mg Q6H PRN Administration NAUSEA AND/OR VOMITING Paroxetine HCl 20 mg 11/02/19 18:00 11/11/19 09:40 Paxil - PO 20 mg DAILY [facility] Administration S1 S2 RRR Right shoulder ecchymosis right forehead hematoma Lungs decreased breath sounds, occasional ronchi Abd- soft, NT no edema Assessment/Plan nebs pt has an unsteady gait -- needs STR on po antibiotics for UTI blood cultures negative xray shoulder negative CT ABD/PELVIS-- stomach mass-->GI eval noted-- for EGD Tuesday spoke with son nebs as needed PT Fall precautions nebs Daily oob - chair lidocaine patch for back pain , add baclofen Problem List - Problems (1) HIV (human immunodeficiency virus infection) Code(s): B20 - HUMAN IMMUNODEFICIENCY VIRUS [HIV] DISEASE (2) Frequent falls Code(s): R29.6 - REPEATED FALLS (3) Unwitnessed fall Code(s): R29.6 - REPEATED FALLS
[2019-11-11] MEDS ORDERED: BACLOFEN 10 MG TABLET (FP) PO SCH (11:15)
--- NOTE | 2019-11-11 14:24 | PN.GI ---
GI Progress Note Subjective: mild epigastric pain and early satiety despite medication - Objective Vital Signs: Vital Signs Temperature 98.8 F 11/11/19 09:00 Pulse Rate 67 11/11/19 09:00 Respiratory Rate 20 11/11/19 09:00 Blood Pressure 106/56 L 11/11/19 09:00 O2 Sat by Pulse Oximetry (%) 94 L 11/11/19 09:00 Constitutional: Well Nourished Eyes: Yes: Conjunctiva Clear HENT: Yes: Atraumatic Neck: Yes: Supple Cardiovascular: Yes: Regular Rate and Rhythm Respiratory: Yes: CTA Bilaterally ...Palpate: Yes: Soft. No: Firm/Rigid, Guarding, Hepatomegaly, Mass, Pulsatile Mass, Splenomegaly, Tenderness Labs: CBC, BMP 11/09/19 07:48 11/09/19 07:48 INR, PTT INR 0.95 (0.83-1.09) 11/01/19 09:10 Problem List - Problems (1) Gastric mass Assessment/Plan: R> continue Pantoprazole For EGD tomorrow Code(s): K31.89 - OTHER DISEASES OF STOMACH AND DUODENUM
[2019-11-11] MEDS: LIDOCAINE PATCH REMOVAL MC SCH (22:11)
[2019-11-12] MEDS: GABAPENTIN 100 MG CAPSULE PO SCH ×3 (05:12→22:31)
[2019-11-12] MEDS: AMOXICILLIN 500 MG CAPSULE (FP) PO SCH ×3 (05:12→22:31)
[2019-11-12 10:06] LABS: BASO % 0.8 % (0-2.0); EOS % 2.4 % (0-4.5); HEMATOCRIT 41.6 % (32.4-45.2); HEMOGLOBIN 13.9 GM/dL (10.7-15.3); LYMPH % 39.6 % (8-40); MCH 31.9 pg (25.7-33.7); MCHC 33.5 g/dl (32.0-36.0); MEAN CELL VOLUME 95.5 fl (80-96); MEAN PLT VOLUME 9.4 fl (7.5-11.1); MONO % 9.8 % (3.8-10.2); NEUT % 47.4 % (42.8-82.8); PLATELET COUNT 186 K/MM3 (134-434); RBC 4.35 M/mm3 (3.60-5.2); RDW 13.8 % (11.6-15.6); WHITE BLOOD COUNT 5.1 K/mm3 (4.0-10.0)
[2019-11-12 10:34] LABS: ALBUMIN 3.3 g/dl (3.4-5.0); BILIRUBIN,TOTAL 0.6 mg/dL (0.2-1); BLOOD UREA NITROGEN 15.2 mg/dL (7-18); CREATININE 0.8 mg/dL (0.55-1.3); POTASSIUM 3.4 mmol/L (3.5-5.1); TOT PROT 6.9 g/dl (6.4-8.2)
[2019-11-12] MEDS: EMTRICITABINE 200MG/TENOFOVIR 300MG PO SCH (11:47)
[2019-11-12] MEDS: CYCLOBENZAPRINE HCL 5 MG TABLET PO SCH (11:47)
[2019-11-12] MEDS: DARUNAVIR 800 MG/COBICISTAT 150MG TABLET PO SCH (11:47)
[2019-11-12] MEDS: HEPARIN NA (PORCINE) 5,000 UNITS/ML 1ML VIAL SQ SCH ×2 (11:48→22:31)
[2019-11-12] MEDS: LIDOCAINE 5% TOPICAL PATCH TP SCH (11:48)
[2019-11-12] MEDS: PARoxetine HCL 20 MG TABLET PO SCH (11:48)
[2019-11-12] MEDS: CARBIDOPA/LEVODOPA 10/100 TABLET (FP) PO SCH ×2 (11:48→22:30)
--- NOTE | 2019-11-12 13:20 | PN ---
Progress Note (short form) - Note Progress Note: pt seen/ examined chart reviewed just came back from EGD Vital Signs Temp 98.0 F 11/12/19 10:47 Pulse 71 11/12/19 11:16 Resp 18 11/12/19 11:16 BP 106/54 L 11/12/19 11:16 Pulse Ox 98 11/12/19 11:16 Intake & Output 11/11/19 11/12/19 11/12/19 23:59 11:59 23:59 Intake Total 300 400 Balance 300 400 Intake: IV 400 Oral 300 Other: Voiding Method Toilet Toilet # Unmeasured Voids Void 1 1 Bowel Movement No Yes Active Medications Acetaminophen (Tylenol -) 650 mg PO Q6H PRN PRN Reason: Fever Last Admin: 11/11/19 04:21 Dose: 650 mg Albuterol Sulfate (Ventolin 0.083% Nebulizer Soln -) 1 amp NEB Q6H PRN PRN Reason: SHORT OF BREATH/WHEEZING Amoxicillin (Amoxicillin -) 500 mg PO TID [facility] Last Admin: 11/12/19 05:12 Dose: Not Given Carbidopa/Levodopa (Sinemet 10/ -) 1 each PO BID [facility] Last Admin: 11/12/19 11:48 Dose: 1 each Cyclobenzaprine HCl (Cyclobenzaprine Hcl) 5 mg PO DAILY [facility] Last Admin: 11/12/19 11:47 Dose: 5 mg Emtricitabine/Tenofovir (Truvada) 1 tab PO DAILY [facility] Last Admin: 11/12/19 11:47 Dose: 1 tab Gabapentin (Neurontin -) 200 mg PO TID [facility] Last Admin: 11/12/19 05:12 Dose: Not Given Heparin Sodium (Porcine) (Heparin -) 5,000 unit SQ BID [facility] Last Admin: 11/12/19 11:48 Dose: 5,000 unit Lidocaine (Lidoderm Patch -) 1 patch TP DAILY [facility] Last Admin: 11/12/19 11:48 Dose: 1 patch Miscellaneous (Lidoderm Patch Removal) 1 each MC DAILY@2200 [facility] Last Admin: 11/11/19 22:11 Dose: 1 each Ondansetron HCl (Zofran Odt -) 4 mg SL Q6H PRN PRN Reason: NAUSEA AND/OR VOMITING Last Admin: 11/11/19 06:56 Dose: 4 mg Pantoprazole Sodium (Protonix -) 40 mg PO DAILY [facility] Paroxetine HCl (Paxil -) 20 mg PO DAILY [facility] Last Admin: 11/12/19 11:48 Dose: 20 mg CBC, BMP 11/12/19 08:05 11/12/19 08:05 Physical Exam S1 S2 RRR Lungs decreased breath sounds at bases Abd- soft, NT no edema Assessment/Plan nebs pt has an unsteady gait -- needs STR on po antibiotics for UTI blood cultures negative xray shoulder negative CT ABD/PELVIS-- stomach mass-->GI eval noted-- EGD today nebs as needed PT Fall precautions nebs Daily oob - chair Will review EGD report D/c planning - Likely tomorrow. Will follow Problem List - Problems (1) HIV (human immunodeficiency virus infection) Code(s): B20 - HUMAN IMMUNODEFICIENCY VIRUS [HIV] DISEASE (2) Frequent falls Code(s): R29.6 - REPEATED FALLS (3) Unwitnessed fall Code(s): R29.6 - REPEATED FALLS Problem List - Problems (1) Back pain Code(s): M54.9 - DORSALGIA, UNSPECIFIED (2) Mood disorder Code(s): F39 - UNSPECIFIED MOOD [AFFECTIVE] DISORDER (3) Frequent falls Code(s): R29.6 - REPEATED FALLS (4) HIV (human immunodeficiency virus infection) Code(s): B20 - HUMAN IMMUNODEFICIENCY VIRUS [HIV] DISEASE (5) Fever Code(s): R50.9 - FEVER, UNSPECIFIED (6) UTI (urinary tract infection) Code(s): N39.0 - URINARY TRACT INFECTION, SITE NOT SPECIFIED (7) Gastric mass Code(s): K31.89 - OTHER DISEASES OF STOMACH AND DUODENUM
[2019-11-12] MEDS ORDERED: PT OWN MED DRAWER 7, Y5N ONE (21:56)
[2019-11-12] MEDS: LIDOCAINE PATCH REMOVAL MC SCH (22:31)
[2019-11-13] MEDS: ACETAMINOPHEN 325 MG TABLET (FP) PO PRN (01:31)
[2019-11-13] MEDS: GABAPENTIN 100 MG CAPSULE PO SCH ×2 (07:02→14:09)
[2019-11-13] MEDS: AMOXICILLIN 500 MG CAPSULE (FP) PO SCH ×2 (07:02→14:10)
[2019-11-13] MEDS ORDERED: PANTOPRAZOLE 40 MG TABLET PO SCH (10:00)
[2019-11-13] MEDS ORDERED: PT OWN MED DRAWER 7, Y5N ONE (10:05)
[2019-11-13] MEDS: CYCLOBENZAPRINE HCL 5 MG TABLET PO SCH (10:45)
[2019-11-13] MEDS: LIDOCAINE 5% TOPICAL PATCH TP SCH (10:45)
[2019-11-13] MEDS: HEPARIN NA (PORCINE) 5,000 UNITS/ML 1ML VIAL SQ SCH (10:45)
[2019-11-13] MEDS: PARoxetine HCL 20 MG TABLET PO SCH (10:45)
[2019-11-13] MEDS: DARUNAVIR 800 MG/COBICISTAT 150MG TABLET PO SCH (10:45)
[2019-11-13] MEDS: EMTRICITABINE 200MG/TENOFOVIR 300MG PO SCH (10:46)
[2019-11-13] MEDS: CARBIDOPA/LEVODOPA 10/100 TABLET (FP) PO SCH (10:46)
--- NOTE | 2019-11-13 11:07 | DS ---
Physical Examination Vital Signs: Vital Signs Temperature 98.3 F 11/13/19 10:58 Pulse Rate 69 11/13/19 10:58 Respiratory Rate 18 11/13/19 10:58 Blood Pressure 100/43 L 11/13/19 10:58 O2 Sat by Pulse Oximetry (%) 98 11/12/19 21:00 Constitutional: Yes: No Distress, Calm Cardiovascular: Yes: Regular Rate and Rhythm Respiratory: Yes: Rhonchi Gastrointestinal: Yes: Normal Bowel Sounds, Soft. No: Tenderness Edema: No Labs: CBC, BMP 11/12/19 08:05 11/12/19 08:05 Discharge Summary Problems reviewed: Yes Reason For Visit: UNWITNESSED FALL Current Active Problems Back pain (Acute) Fever (Acute) Frequent falls (Acute) Gastric mass (Acute) HIV (human immunodeficiency virus infection) (Acute) Mood disorder (Acute) UTI (urinary tract infection) (Acute) Unwitnessed fall (Acute) Hospital Course: - Admission Chief Complaint: s/p fall History of Present Illness: ER note- The patient is a 69 year old female, with a significant past medical history of HIV, cholecystectomy (05/2013) who presents to the ED via EMS s/p fall one day ago. Patient reports dizziness described as the room spinning since last night and presents with a hematoma to the right forehead. ] Spoke with ER resident Pt has had multiple falls since one week-- had seen DR Cortes earlier last week for follow up and was started on Inderal - after which pt has been experiencing dizziness and imbalance I spoke to PMD--patient did not have problems with gait-she had come in for palpitation and he started her on Inderal--has a history of lumbar radiculopathy and cervical radiculopathy denies chest pain or shortness of breath CT head negative Evaluated by ID and Neurology -- possible parkinsons -- started her on meds found to have UTI-- enterococcus fecalis-- was o iv antibiotics now on po seen by Neurology -- pt c/o back pain and is confused as well MRI of the lumbosacral spine noted with multiple degenerative disc disease with a large disc between L1 and L2. Also has a mass in stomach seen on CT abd-- seen by GI-- EGD done on 11/12-- non bleeding ulcer-- biopsies taken Pt better no distress \ has unsteady gait stable for dc to NH follow up on biopsies/pathology Condition: Improved - Instructions Referrals: Mau Avilez MD [Staff Physician] - Disposition: CARE HOME FACILITY - Home Medications Comprehensive Discharge Medication List: Ambulatory Orders Acetaminophen W/ Codeine #3 [Tylenol W/Codeine #3] 1 combo NR Q4HWA #0 tablet Gabapentin [Neurontin] 1,200 mg PO BID 01/12/12 Paroxetine HCl [Paxil] 20 mg PO TID 01/12/12 Ritonavir Oral Solution [Norvir] 100 mg PO ONCE 01/12/12
[2019-11-13 15:47] VITALS: BP 115/80; PULSE 78; TEMP 98.7
--- NOTE | 2019-11-14 18:29 | PATH ---
Surgical Pathology Report Patient Name: OZZY FUENTES Med. Rec. #: [id number] /Age/Gender: 1950 (Age: 69) / F Account: [id number] Location: [address] [place] [address]/[facility] Taken: 11/12/2019 Received: 11/12/2019 Reported: 11/14/2019 Physicians: Irma Shook MD Specimen(s) Received STOMACH Clinical History Coffee ground emesis Postoperative diagnosis: Antral ulcer Final Diagnosis STOMACH, BIOPSY: GASTRIC OXYNTIC MUCOSA WITH MILD CHRONIC ACTIVE GASTRITIS AND FOCAL INTESTINAL METAPLASIA. NO DYSPLASIA IDENTIFIED. IMMUNOHISTOCHEMICAL STAIN FOR H. PYLORI IS NEGATIVE. Immunohistochemical stain performed at [place], [place] ([id number]) and interpreted at [facility]. Positive and negative controls (internal if applicable) show appropriate results. Electronically Signed Annmarie Marin M.D. Gross Description Received in formalin, labeled "biopsy stomach" are 3 childers, irregular portions of soft tissue ranging from 0.1-0.4 cm. in greatest dimension. The specimens are submitted in toto in one cassette. /11/12/201911/12/2019
== END 2019-11-13 17:01 | DRG 57 ==
LOC: JER 07:52 → JERBED 10:27 → J5S 17:11
PROVIDERS: ADMIT Internal Medicine; ATTEND Internal Medicine
PROC: 0DB68ZX Excision of Stomach, Via Natural or Artificial Opening Endoscopic, Diagnostic (ICD-10-PCS; principal; 2019-11-12 10:00)
DX: G20 Parkinson's disease (principal); N39.0 Urinary tract infection, site not specified; Z21 Asymptomatic human immunodeficiency virus [HIV] infection status; F41.9 Anxiety disorder, unspecified; F03.90 Unspecified dementia, unspecified severity, without behavioral disturbance, psychotic disturbance, mood disturbance, and anxiety; F39 Unspecified mood [affective] disorder; S00.83XA Contusion of other part of head, initial encounter; B95.2 Enterococcus as the cause of diseases classified elsewhere; K25.9 Gastric ulcer, unspecified as acute or chronic, without hemorrhage or perforation; W19.XXXA Unspecified fall, initial encounter; M54.12 Radiculopathy, cervical region; R26.81 Unsteadiness on feet; Y93.89 Activity, other specified; Y92.009 Unspecified place in unspecified non-institutional (private) residence as the place of occurrence of the external cause; R29.6 Repeated falls; Y99.8 Other external cause status; F17.210 Nicotine dependence, cigarettes, uncomplicated; M51.86 Other intervertebral disc disorders, lumbar region; E66.9 Obesity, unspecified; Z68.33 Body mass index [BMI] 33.0-33.9, adult; K31.89 Other diseases of stomach and duodenum
CPT/HCPCS: 36415; 70450-TC; 70551-TC; 71045-TC-FY; 71275-TC; 72125-TC; 72148-TC; 73030-TC-RT-FY; 74176-TC; 80048; 80053; 81003; 82550; 82553; 83036; 83735; 83874; 84484; 85025; 85027; 85610; 85651; 85730; 86038; 87040; 87077; 87086; 87186; 87804; 88305-TC; 93005; 93010; 93880-TC; 97116-GP; 97161-GP; 99283-25; J1644; J7030; Q0162; Q9967

== ENCOUNTER 2022-01-21 04:23 | Day surgery (SDC) | payer OTHER ==
[2022-01-21] MEDS ORDERED: CHONDROITIN SU A/HYALUR SOD 1 KIT ONE (07:12)
[2022-01-21] MEDS ORDERED: LIDOCAINE HCL/PF 1% SDV 5ML VIAL ONE (07:12)
[2022-01-21] MEDS ORDERED: BUPIVACAINE HCL/PF 0.75% 10 ML VIAL ONE (07:13)
[2022-01-21] MEDS ORDERED: TOBRAMYCIN/DEXAMETHASONE OPHTH. OINTMENT 1 TUBE ONE (07:24)
[2022-01-21] MEDS ORDERED: LIDOCAINE HCL/PF 2% SDV 5ML VIAL ONE (07:25)
[2022-01-21] MEDS ORDERED: POVIDONE-IODINE 5% OPHTHALMIC PREP 30 ML SOLUTION ONE (07:25)
[2022-01-21] MEDS ORDERED: ACETAMINOPHEN 325 MG TABLET (FP) PO PRN (07:27)
[2022-01-21] MEDS ORDERED: CIPROFLOXACIN HCL 0.3% OPHTH 2.5ML BOTTLE OP SCH (07:30)
[2022-01-21 08:57] VITALS: BMI 31.2
[2022-01-21] MEDS ORDERED: TROPICAMIDE 1% OPHTH SOLN 15 ML BOTTLE ONE (09:35)
[2022-01-21] MEDS ORDERED: PHENYLEPHRINE 2.5% OPTHALMIC DROP BOTTLE ONE (09:35)
[2022-01-21] MEDS ORDERED: KETOROLAC TROMETHAMINE 0.5% EYE DROP 1 DROP DROPS ONE (09:35)
[2022-01-21 09:39] VITALS: PULSE 78
[2022-01-21] MEDS: TROPICAMIDE 1% OPHTH SOLN 15 ML BOTTLE OP SCH ×3 (09:40→10:10)
[2022-01-21] MEDS: PHENYLEPHRINE 2.5% OPHTH SOLN 15 ML BOTTLE OP SCH ×3 (09:40→10:10)
[2022-01-21] MEDS: KETOROLAC TROMETHAMINE 0.5% EYE DROP 1 DROP DROPS OP SCH ×2 (09:40→09:50)
[2022-01-21] MEDS: CIPROFLOXACIN 0.3% EYE DROPS 5 ML BOTTLE ONE ×3 (09:40→10:10)
[2022-01-21] MEDS ORDERED: PROPOFOL 20 ML ONE (11:05)
[2022-01-21] MEDS ORDERED: BUPIVACAINE HCL/PF 0.75% 10 ML VIAL NR ONE (11:16)
[2022-01-21] MEDS ORDERED: LIDOCAINE HCL/PF 2% SDV 5ML VIAL INF ONE (11:16)
[2022-01-21] MEDS ORDERED: POVIDONE-IODINE 5% OPHTHALMIC PREP 30 ML SOLUTION OD ONE (11:20)
[2022-01-21] MEDS ORDERED: BSS (NA/CA/MG/K) BALANCED SALT SOLUTION OPHTH SOLN 15 ML BOTTLE OD ONE (11:24)
[2022-01-21] MEDS ORDERED: TRYPAN BLUE 0.5 ML DISP.SYRIN IO ONE (11:26)
[2022-01-21] MEDS ORDERED: CHONDROITIN SU A/HYALUR SOD 1 KIT IO ONE ×2 (11:26)
[2022-01-21] MEDS ORDERED: KETOROLAC TROMETHAMINE 30 MG/1 ML VIAL ONE (11:35)
[2022-01-21] MEDS ORDERED: EPINEPHrine/PF 1 MG/1 ML (1:1,000) AMPULE SQ ONE (11:36)
[2022-01-21] MEDS ORDERED: TOBRAMYCIN 0.3% OPHTH OINT 3.5 GM OD ONE (12:01)
[2022-01-21 13:56] VITALS: BP 135/60; TEMP 98.6
== END 2022-01-21 13:30 | disposition home or self-care (01) ==
LOC: JASU-SURG 04:23
PROVIDERS: ATTEND Ophthalmology
PROC: 08RJ3JZ Replacement of Right Lens with Synthetic Substitute, Percutaneous Approach (ICD-10-PCS; principal; 2022-01-21 10:30)
DX: H26.9 Unspecified cataract (principal)

== ENCOUNTER 2022-02-18 04:27 | Day surgery (SDC) | payer OTHER ==
[2022-02-12 14:33] VITALS: BMI 31.2
[~2022-02-18 04:27] MED LIST: CHONDROITIN SU A/HYALUR SOD 1 KIT IO ONE; EPINEPHrine/PF 1 MG/1 ML (1:1,000) AMPULE SQ ONE
[2022-02-18] MEDS ORDERED: CHONDROITIN SU A/HYALUR SOD 1 KIT ONE (07:07)
[2022-02-18] MEDS ORDERED: LIDOCAINE HCL/PF 1% SDV 5ML VIAL ONE (07:07)
[2022-02-18] MEDS ORDERED: ACETAMINOPHEN 325 MG TABLET (FP) PO PRN (07:17)
[2022-02-18] MEDS ORDERED: TETRACAINE 0.5% OPHTH SOLN 2 ML BOTTLE ONE (07:18)
[2022-02-18] MEDS ORDERED: TOBRAMYCIN/DEXAMETHASONE OPHTH. OINTMENT 1 TUBE ONE (07:18)
[2022-02-18] MEDS ORDERED: POVIDONE-IODINE 5% OPHTHALMIC PREP 30 ML SOLUTION ONE (07:18)
[2022-02-18] MEDS ORDERED: DICLOFENAC SODIUM 0.1% OPHTHALMIC 2.5ML BOTTLE ONE (07:43)
[2022-02-18] MEDS ORDERED: CIPROFLOXACIN 0.3% EYE DROPS 5 ML BOTTLE ONE (07:43)
[2022-02-18] MEDS ORDERED: TROPICAMIDE 1% OPHTH SOLN 15 ML BOTTLE ONE (07:43)
[2022-02-18] MEDS ORDERED: PHENYLEPHRINE 2.5% OPTHALMIC DROP BOTTLE ONE (07:44)
[2022-02-18] MEDS: CIPROFLOXACIN HCL 0.3% OPHTH 2.5ML BOTTLE OP SCH ×2 (08:05→08:20)
[2022-02-18] MEDS: PHENYLEPHRINE 2.5% OPHTH SOLN 15 ML BOTTLE OP SCH ×2 (08:05→08:10)
[2022-02-18] MEDS: DICLOFENAC SODIUM 0.1% OPHTHALMIC 2.5ML BOTTLE OP SCH ×2 (08:05→08:20)
[2022-02-18] MEDS: TROPICAMIDE 1% OPHTH SOLN 15 ML BOTTLE OP SCH ×2 (08:05→08:10)
[2022-02-18] MEDS ORDERED: LIDOCAINE HCL/PF 2% SDV 5ML VIAL ONE (08:48)
[2022-02-18] MEDS ORDERED: BUPIVACAINE HCL/PF 0.75% 10 ML VIAL ONE (08:48)
[2022-02-18] MEDS ORDERED: PROPOFOL 20 ML ONE (09:11)
[2022-02-18] MEDS ORDERED: TRYPAN BLUE 0.5 ML DISP.SYRIN ONE (09:24)
[2022-02-18] MEDS ORDERED: LIDOCAINE HCL/PF 2% SDV 5ML VIAL INF ONE (09:35)
[2022-02-18] MEDS ORDERED: BUPIVACAINE HCL/PF 0.75% 10 ML VIAL NR ONE (09:36)
[2022-02-18] MEDS ORDERED: POVIDONE-IODINE 5% OPHTHALMIC PREP 30 ML SOLUTION OS ONE (09:37)
[2022-02-18] MEDS ORDERED: BSS (NA/CA/MG/K) BALANCED SALT SOLUTION OPHTH SOLN 15 ML BOTTLE OS ONE (09:38)
[2022-02-18] MEDS ORDERED: TRYPAN BLUE 0.5 ML DISP.SYRIN TP ONE (09:42)
[2022-02-18] MEDS ORDERED: CHONDROITIN SU A/HYALUR SOD 1 KIT IO ONE (09:43)
[2022-02-18] MEDS ORDERED: EPINEPHrine/PF 1 MG/1 ML (1:1,000) AMPULE SQ ONE (09:45)
[2022-02-18] MEDS ORDERED: TOBRAMYCIN/DEXAMETHASONE OPHTH. OINTMENT 1 TUBE TP ONE (10:06)
[2022-02-18 10:35] VITALS: TEMP 98.9
[2022-02-18 11:07] VITALS: BP 128/67; PULSE 63
== END 2022-02-18 11:10 ==
LOC: JASU-SURG 04:27
PROVIDERS: ATTEND Ophthalmology
PROC: 08RK3JZ Replacement of Left Lens with Synthetic Substitute, Percutaneous Approach (ICD-10-PCS; principal; 2022-02-18 09:30)
DX: H26.9 Unspecified cataract (principal)

== ENCOUNTER 2022-04-06 11:51 | Inpatient (IN) | payer OTHER ==
[2022-04-06] MEDS ORDERED: FUROSEMIDE 40 MG TABLET (FP) PO ONE (13:15)
[2022-04-06] MEDS ORDERED: FUROSEMIDE 40 MG/4 ML INJECTABLE VIAL IVPUSH ONE (13:27)
[2022-04-06] MEDS ORDERED: FUROSEMIDE 40 MG/4 ML INJECTABLE VIAL ONE (13:30)
[2022-04-06 14:12] LABS: VENOUS BASE EXCESS 9.4 mmol/L (-2-2); VENOUS O2 SATURATION 25.4 % (70-80); VENOUS PCO2 51.6 mmHg (38-52); VENOUS PH 7.451 (7.310-7.410)
[2022-04-06 14:21] LABS: BASO % 0.4 % (0-2.0); HEMATOCRIT 42.5 % (32.4-45.2); HEMOGLOBIN 14.2 GM/dL (10.7-15.3); LYMPH % 5.7 % (8-40); MCH 33.8 pg (25.7-33.7); MCHC 33.5 g/dl (32.0-36.0); MEAN CELL VOLUME 100.9 fl (80-96); MEAN PLT VOLUME 9.2 fl (7.5-11.1); MONO % 5.5 % (3.8-10.2); NEUT % 88.4 % (42.8-82.8); PLATELET COUNT 127 10^3/uL (134-434); RBC 4.21 M/mm3 (3.60-5.2); RDW 15.6 % (11.6-15.6); WHITE BLOOD COUNT 10.6 K/mm3 (4.0-10.0)
[2022-04-06 14:31] LABS: CHLORIDE 95 mmol/L (98-107); SODIUM 139 mmol/L (136-145)
[2022-04-06 14:32] LABS: CALCIUM 9.6 mg/dL (8.5-10.1)
[2022-04-06 14:33] LABS: ALBUMIN 2.7 g/dl (3.4-5.0); ANION GAP 10 MMOL/L (8-16); BLOOD UREA NITROGEN 26.4 mg/dL (7-18); CO2 34 mmol/L (21-32); GLUCOSE,RANDOM 207 mg/dL (74-106); MAGNESIUM 2.6 mg/dL (1.8-2.4)
[2022-04-06 14:36] LABS: CREATININE 0.9 mg/dL (0.55-1.3); PHOSPHOROUS 2.4 mg/dL (2.5-4.9); SGOT/AST 25 U/L (15-37); SGPT/ALT 43 U/L (13-61)
[2022-04-06 14:38] LABS: BILIRUBIN,TOTAL 1.5 mg/dL (0.2-1); TOT PROT 6.6 g/dl (6.4-8.2)
[2022-04-06 14:39] LABS: ALK PHOS 106 U/L (45-117); N-TERMINAL BNP 1014.5 pg/ml (5-125)
[2022-04-06 14:55] LABS: INR 1.03 (0.83-1.09); PROTHROMBIN TIME (PATIENT) 11.8 SEC (9.7-13.0)
[2022-04-06] MEDS ORDERED: PIPERACILLIN/TAZOB 3.375 GM 3.375 GM/50 ML BAG IVPB ONE (15:25)
[2022-04-06] MEDS: GABAPENTIN 300 MG CAPSULE PO SCH (22:17)
[2022-04-06 23:11] LABS: BLOOD UREA NITROGEN 21.9 mg/dL (7-18); CALCIUM 9.1 mg/dL (8.5-10.1)
[2022-04-06 23:15] LABS: CREATININE 0.7 mg/dL (0.55-1.3)
[2022-04-07] MEDS: KCL 10 MEQ IVPB 10 MEQ/100 ML INFUS.BAG IVPB SCH ×2 (02:50→05:45)
[2022-04-07] MEDS: GABAPENTIN 100 MG CAPSULE PO SCH ×2 (08:10→18:25)
[2022-04-07 08:16] LABS: BASO % 0.3 % (0-2.0); EOS % 0.2 % (0-4.5); HEMATOCRIT 36.3 % (32.4-45.2); HEMOGLOBIN 12.2 GM/dL (10.7-15.3); LYMPH % 13.5 % (8-40); MCH 33.5 pg (25.7-33.7); MCHC 33.7 g/dl (32.0-36.0); MEAN CELL VOLUME 99.5 fl (80-96); MEAN PLT VOLUME 8.7 fl (7.5-11.1); MONO % 7.9 % (3.8-10.2); NEUT % 78.1 % (42.8-82.8); PLATELET COUNT 118 10^3/uL (134-434); RBC 3.65 M/mm3 (3.60-5.2); RDW 15.5 % (11.6-15.6); WHITE BLOOD COUNT 10.1 K/mm3 (4.0-10.0)
[2022-04-07 08:41] LABS: CALCIUM 8.9 mg/dL (8.5-10.1)
[2022-04-07 08:42] LABS: BLOOD UREA NITROGEN 20.8 mg/dL (7-18)
[2022-04-07 08:45] LABS: CREATININE 0.6 mg/dL (0.55-1.3)
[2022-04-07 08:46] LABS: TOT PROT 5.5 g/dl (6.4-8.2)
[2022-04-07 08:47] LABS: BILIRUBIN,TOTAL 1.6 mg/dL (0.2-1)
[2022-04-07 09:12] LABS: ALBUMIN 2.1 g/dl (3.4-5.0)
[2022-04-07] MEDS: PARoxetine HCL 20 MG TABLET PO SCH (09:23)
[2022-04-07] MEDS: PANTOPRAZOLE 20 MG TABLET PO SCH (09:23)
[2022-04-07] MEDS: POTASSIUM CHLORIDE TABS 20 MEQ TABLET.ER (FP) PO SCH (09:23)
[2022-04-07] MEDS: FUROSEMIDE 40 MG/4 ML INJECTABLE VIAL IVPB SCH (09:23)
[2022-04-07] MEDS: DARUNAVIR 800 MG/COBICISTAT 150MG TABLET PO SCH (12:00)
[2022-04-07] MEDS: EMTRICITABINE/TENOFOV ALAFENAM (DESCOVY) TABLET PO SCH (12:00)
[2022-04-07] MEDS ORDERED: ACETAMINOPHEN 1000 MG/100 ML BAG IVPB ONE (19:34)
[2022-04-07] MEDS: ATORVASTATIN CA 10 MG TABLET (FP) PO SCH (21:56)
[2022-04-07] MEDS: GABAPENTIN 300 MG CAPSULE PO SCH (21:56)
[2022-04-08 07:57] LABS: BLOOD UREA NITROGEN 18.8 mg/dL (7-18); CALCIUM 9.3 mg/dL (8.5-10.1)
[2022-04-08 08:00] LABS: CREATININE 0.6 mg/dL (0.55-1.3)
[2022-04-08] MEDS: GABAPENTIN 100 MG CAPSULE PO SCH ×2 (08:38→18:14)
[2022-04-08] MEDS: PARoxetine HCL 20 MG TABLET PO SCH (10:31)
[2022-04-08] MEDS: DARUNAVIR 800 MG/COBICISTAT 150MG TABLET PO SCH (10:32)
[2022-04-08] MEDS: PANTOPRAZOLE 20 MG TABLET PO SCH (10:32)
[2022-04-08] MEDS: POTASSIUM CHLORIDE TABS 20 MEQ TABLET.ER (FP) PO SCH (10:32)
[2022-04-08] MEDS: EMTRICITABINE/TENOFOV ALAFENAM (DESCOVY) TABLET PO SCH (10:33)
[2022-04-08] MEDS: FUROSEMIDE 40 MG/4 ML INJECTABLE VIAL IVPB SCH (14:04)
[2022-04-08 18:06] LABS: EPI CELLS 22 /uL (0-25.1); HYALINE CASTS 0 /uL (0-3.1); URINE APPEARANCE CLEAR; URINE BACTERIA 90 /uL (0-1359); URINE BILIRUBIN NEGATIVE (NEGATIVE); URINE COLOR YELLOW; URINE GLUCOSE (UA) NEGATIVE (NEGATIVE); URINE KETONE NEGATIVE (NEGATIVE); URINE LEUK ESTERASE 1+ (NEGATIVE); URINE NITRITE NEGATIVE (NEGATIVE); URINE PROTEIN TRACE (NEGATIVE); URINE RBC 10 /uL (0-23.9); URINE WBC 65 /uL (0-25.8)
[2022-04-08] MEDS: ACETAMINOPHEN 325 MG TABLET (FP) PO PRN (18:14)
[2022-04-08] MEDS: GABAPENTIN 300 MG CAPSULE PO SCH (21:17)
[2022-04-08] MEDS: ATORVASTATIN CA 10 MG TABLET (FP) PO SCH (21:18)
[2022-04-09] MEDS: GABAPENTIN 100 MG CAPSULE PO SCH ×2 (09:00→17:21)
[2022-04-09] MEDS: EMTRICITABINE/TENOFOV ALAFENAM (DESCOVY) TABLET PO SCH (10:23)
[2022-04-09] MEDS: PANTOPRAZOLE 20 MG TABLET PO SCH (10:23)
[2022-04-09] MEDS: FUROSEMIDE 40 MG/4 ML INJECTABLE VIAL IVPB SCH (10:23)
[2022-04-09] MEDS: DARUNAVIR 800 MG/COBICISTAT 150MG TABLET PO SCH (10:23)
[2022-04-09] MEDS: POTASSIUM CHLORIDE TABS 20 MEQ TABLET.ER (FP) PO SCH (10:23)
[2022-04-09] MEDS: PARoxetine HCL 20 MG TABLET PO SCH (10:23)
[2022-04-09] MEDS: MULTIVITAMINS (DAILY MVI) TABLET (FP) PO SCH (10:26)
[2022-04-09] MEDS: ENOXAPARIN NA (PORCINE) 40 MG/0.4 ML DISP.SYRIN SQ SCH (14:12)
[2022-04-09] MEDS: ACETAMINOPHEN 325 MG TABLET (FP) PO PRN (14:14)
[2022-04-09] MEDS: CEFAZOLIN 1 GM in DEXTROSE 5%-WATER - 1 GM/50 ML IVPB IVPB SCH (15:40)
[2022-04-09] MEDS ORDERED: DEXTROSE 5%-WATER - 50 ML IVPB ONE (16:05)
[2022-04-09] MEDS ORDERED: ceFAZolin SODIUM 1 GM VIAL ONE (16:05)
[2022-04-09] MEDS: GABAPENTIN 300 MG CAPSULE PO SCH (21:24)
[2022-04-09] MEDS: ATORVASTATIN CA 10 MG TABLET (FP) PO SCH (21:24)
[2022-04-10] MEDS ORDERED: ceFAZolin SODIUM 1 GM VIAL ONE ×3 (00:26→17:22)
[2022-04-10] MEDS ORDERED: DEXTROSE 5%-WATER - 50 ML IVPB ONE ×2 (00:26→17:23)
[2022-04-10] MEDS: CEFAZOLIN 1 GM in DEXTROSE 5%-WATER - 1 GM/50 ML IVPB IVPB SCH ×3 (01:26→17:37)
[2022-04-10] MEDS: ENOXAPARIN NA (PORCINE) 40 MG/0.4 ML DISP.SYRIN SQ SCH (11:04)
[2022-04-10] MEDS: POTASSIUM CHLORIDE TABS 20 MEQ TABLET.ER (FP) PO SCH (11:05)
[2022-04-10] MEDS: FUROSEMIDE 40 MG/4 ML INJECTABLE VIAL IVPB SCH (11:05)
[2022-04-10] MEDS: MULTIVITAMINS (DAILY MVI) TABLET (FP) PO SCH (11:05)
[2022-04-10] MEDS: GABAPENTIN 100 MG CAPSULE PO SCH ×2 (11:06→17:38)
[2022-04-10] MEDS: PARoxetine HCL 20 MG TABLET PO SCH (11:06)
[2022-04-10] MEDS: DARUNAVIR 800 MG/COBICISTAT 150MG TABLET PO SCH (11:06)
[2022-04-10] MEDS: PANTOPRAZOLE 20 MG TABLET PO SCH (11:06)
[2022-04-10] MEDS: EMTRICITABINE/TENOFOV ALAFENAM (DESCOVY) TABLET PO SCH (11:06)
[2022-04-10] MEDS: ACETAMINOPHEN 325 MG TABLET (FP) PO PRN ×2 (11:06→21:17)
[2022-04-10] MEDS: GABAPENTIN 300 MG CAPSULE PO SCH (21:17)
[2022-04-10] MEDS: ATORVASTATIN CA 10 MG TABLET (FP) PO SCH (21:17)
[2022-04-11] MEDS ORDERED: DEXTROSE 5%-WATER - 50 ML IVPB ONE ×3 (01:40→17:28)
[2022-04-11] MEDS ORDERED: ceFAZolin SODIUM 1 GM VIAL ONE ×3 (01:40→17:28)
[2022-04-11] MEDS: CEFAZOLIN 1 GM in DEXTROSE 5%-WATER - 1 GM/50 ML IVPB IVPB SCH ×3 (02:15→17:29)
[2022-04-11] MEDS: FUROSEMIDE 40 MG/4 ML INJECTABLE VIAL IVPB SCH (10:12)
[2022-04-11] MEDS: POTASSIUM CHLORIDE TABS 20 MEQ TABLET.ER (FP) PO SCH (10:12)
[2022-04-11] MEDS: MULTIVITAMINS (DAILY MVI) TABLET (FP) PO SCH (10:12)
[2022-04-11] MEDS: GABAPENTIN 100 MG CAPSULE PO SCH ×2 (10:12→17:28)
[2022-04-11] MEDS: ENOXAPARIN NA (PORCINE) 40 MG/0.4 ML DISP.SYRIN SQ SCH (10:13)
[2022-04-11] MEDS: DARUNAVIR 800 MG/COBICISTAT 150MG TABLET PO SCH (10:13)
[2022-04-11] MEDS: PARoxetine HCL 20 MG TABLET PO SCH (10:13)
[2022-04-11] MEDS: PANTOPRAZOLE 20 MG TABLET PO SCH (10:13)
[2022-04-11] MEDS: EMTRICITABINE/TENOFOV ALAFENAM (DESCOVY) TABLET PO SCH (10:13)
[2022-04-11 17:11] LABS: CALCIUM 9.7 mg/dL (8.5-10.1)
[2022-04-11 17:12] LABS: BLOOD UREA NITROGEN 21.8 mg/dL (7-18)
[2022-04-11 17:15] LABS: CREATININE 1.1 mg/dL (0.55-1.3)
[2022-04-11] MEDS: ACETAMINOPHEN 325 MG TABLET (FP) PO PRN (20:05)
[2022-04-11] MEDS: ATORVASTATIN CA 10 MG TABLET (FP) PO SCH ×2 (20:06→21:10)
[2022-04-11] MEDS: GABAPENTIN 300 MG CAPSULE PO SCH ×2 (20:07→21:10)
[2022-04-12] MEDS ORDERED: ceFAZolin SODIUM 1 GM VIAL ONE ×2 (01:32→09:45)
[2022-04-12] MEDS ORDERED: DEXTROSE 5%-WATER - 50 ML IVPB ONE ×2 (01:32→09:45)
[2022-04-12] MEDS: CEFAZOLIN 1 GM in DEXTROSE 5%-WATER - 1 GM/50 ML IVPB IVPB SCH ×2 (02:30→10:45)
[2022-04-12 08:59] LABS: HEMATOCRIT 36.7 % (32.4-45.2); HEMOGLOBIN 12.3 GM/dL (10.7-15.3); MCH 34.1 pg (25.7-33.7); MCHC 33.5 g/dl (32.0-36.0); MEAN CELL VOLUME 101.9 fl (80-96); MEAN PLT VOLUME 9.6 fl (7.5-11.1); PLATELET COUNT 239 10^3/uL (134-434); RDW 15.2 % (11.6-15.6); WHITE BLOOD COUNT 9.6 K/mm3 (4.0-10.0)
[2022-04-12] MEDS: GABAPENTIN 100 MG CAPSULE PO SCH ×2 (09:00→16:45)
[2022-04-12 09:30] LABS: CALCIUM 9.6 mg/dL (8.5-10.1)
[2022-04-12 09:31] LABS: BLOOD UREA NITROGEN 21.2 mg/dL (7-18)
[2022-04-12 09:34] LABS: CREATININE 0.9 mg/dL (0.55-1.3)
[2022-04-12 10:07] LABS: ANISOCYTOSIS 0; MACROCYTOSIS 0
[2022-04-12] MEDS: POTASSIUM CHLORIDE TABS 20 MEQ TABLET.ER (FP) PO SCH (10:45)
[2022-04-12] MEDS: PARoxetine HCL 20 MG TABLET PO SCH (10:45)
[2022-04-12] MEDS: MULTIVITAMINS (DAILY MVI) TABLET (FP) PO SCH (10:45)
[2022-04-12] MEDS: PANTOPRAZOLE 20 MG TABLET PO SCH (10:45)
[2022-04-12] MEDS: ENOXAPARIN NA (PORCINE) 40 MG/0.4 ML DISP.SYRIN SQ SCH (10:47)
[2022-04-12] MEDS: EMTRICITABINE/TENOFOV ALAFENAM (DESCOVY) TABLET PO SCH (10:47)
[2022-04-12] MEDS: DARUNAVIR 800 MG/COBICISTAT 150MG TABLET PO SCH (10:47)
[2022-04-12] MEDS: predniSONE 20 MG TABLET (UD) PO SCH (10:49)
[2022-04-12] MEDS: FUROSEMIDE 40 MG/4 ML INJECTABLE VIAL IVPB SCH (11:08)
[2022-04-12 14:34] VITALS: BMI 28.1
[2022-04-12] MEDS: ATORVASTATIN CA 10 MG TABLET (FP) PO SCH (22:34)
[2022-04-12] MEDS: GABAPENTIN 300 MG CAPSULE PO SCH (22:34)
[2022-04-13] MEDS: ENOXAPARIN NA (PORCINE) 40 MG/0.4 ML DISP.SYRIN SQ SCH (09:54)
[2022-04-13] MEDS: GABAPENTIN 100 MG CAPSULE PO SCH ×2 (09:55→17:07)
[2022-04-13] MEDS: FUROSEMIDE 40 MG/4 ML INJECTABLE VIAL IVPB SCH (09:56)
[2022-04-13] MEDS: EMTRICITABINE/TENOFOV ALAFENAM (DESCOVY) TABLET PO SCH (09:56)
[2022-04-13] MEDS: PARoxetine HCL 20 MG TABLET PO SCH (09:56)
[2022-04-13] MEDS: POTASSIUM CHLORIDE TABS 20 MEQ TABLET.ER (FP) PO SCH (09:56)
[2022-04-13] MEDS: MULTIVITAMINS (DAILY MVI) TABLET (FP) PO SCH (09:56)
[2022-04-13] MEDS: DARUNAVIR 800 MG/COBICISTAT 150MG TABLET PO SCH (09:56)
[2022-04-13] MEDS: PANTOPRAZOLE 20 MG TABLET PO SCH (09:56)
[2022-04-13] MEDS: predniSONE 20 MG TABLET (UD) PO SCH (09:56)
[2022-04-13] MEDS: ACETAMINOPHEN 325 MG TABLET (FP) PO PRN (14:19)
[2022-04-13] MEDS: GABAPENTIN 300 MG CAPSULE PO SCH (22:24)
[2022-04-13] MEDS: ATORVASTATIN CA 10 MG TABLET (FP) PO SCH (22:24)
[2022-04-14] MEDS: GABAPENTIN 100 MG CAPSULE PO SCH ×2 (09:37→17:57)
[2022-04-14] MEDS: ENOXAPARIN NA (PORCINE) 40 MG/0.4 ML DISP.SYRIN SQ SCH (09:38)
[2022-04-14] MEDS: POTASSIUM CHLORIDE TABS 20 MEQ TABLET.ER (FP) PO SCH (09:38)
[2022-04-14] MEDS: DARUNAVIR 800 MG/COBICISTAT 150MG TABLET PO SCH (09:38)
[2022-04-14] MEDS: EMTRICITABINE/TENOFOV ALAFENAM (DESCOVY) TABLET PO SCH (09:38)
[2022-04-14] MEDS: FUROSEMIDE 40 MG/4 ML INJECTABLE VIAL IVPB SCH (09:38)
[2022-04-14] MEDS: PARoxetine HCL 20 MG TABLET PO SCH (09:38)
[2022-04-14] MEDS: predniSONE 20 MG TABLET (UD) PO SCH (09:38)
[2022-04-14] MEDS: MULTIVITAMINS (DAILY MVI) TABLET (FP) PO SCH (09:39)
[2022-04-14] MEDS: PANTOPRAZOLE 20 MG TABLET PO SCH (09:39)
[2022-04-14] MEDS: GABAPENTIN 300 MG CAPSULE PO SCH (21:55)
[2022-04-14] MEDS: ATORVASTATIN CA 10 MG TABLET (FP) PO SCH (21:55)
[2022-04-15] MEDS: GABAPENTIN 100 MG CAPSULE PO SCH ×2 (07:48→18:09)
[2022-04-15] MEDS: PANTOPRAZOLE 20 MG TABLET PO SCH (09:41)
[2022-04-15] MEDS: FUROSEMIDE 40 MG/4 ML INJECTABLE VIAL IVPB SCH (09:41)
[2022-04-15] MEDS: predniSONE 20 MG TABLET (UD) PO SCH (09:41)
[2022-04-15] MEDS: ENOXAPARIN NA (PORCINE) 40 MG/0.4 ML DISP.SYRIN SQ SCH (09:41)
[2022-04-15] MEDS: DARUNAVIR 800 MG/COBICISTAT 150MG TABLET PO SCH (09:42)
[2022-04-15] MEDS: POTASSIUM CHLORIDE TABS 20 MEQ TABLET.ER (FP) PO SCH (09:42)
[2022-04-15] MEDS: EMTRICITABINE/TENOFOV ALAFENAM (DESCOVY) TABLET PO SCH (09:42)
[2022-04-15] MEDS: MULTIVITAMINS (DAILY MVI) TABLET (FP) PO SCH (09:42)
[2022-04-15] MEDS: PARoxetine HCL 20 MG TABLET PO SCH (09:42)
[2022-04-15 12:16] LABS: CALCIUM 10.2 mg/dL (8.5-10.1)
[2022-04-15 12:17] LABS: ALBUMIN 2.3 g/dl (3.4-5.0)
[2022-04-15 12:21] LABS: CREATININE 0.8 mg/dL (0.55-1.3)
[2022-04-15 12:22] LABS: BILIRUBIN,TOTAL 0.6 mg/dL (0.2-1); TOT PROT 6.8 g/dl (6.4-8.2)
[2022-04-15] MEDS: GABAPENTIN 300 MG CAPSULE PO SCH (21:26)
[2022-04-15] MEDS: ATORVASTATIN CA 10 MG TABLET (FP) PO SCH (21:26)
[2022-04-16] MEDS: GABAPENTIN 100 MG CAPSULE PO SCH ×2 (07:50→16:47)
[2022-04-16] MEDS: EMTRICITABINE/TENOFOV ALAFENAM (DESCOVY) TABLET PO SCH (09:21)
[2022-04-16] MEDS: PANTOPRAZOLE 20 MG TABLET PO SCH (09:21)
[2022-04-16] MEDS: predniSONE 20 MG TABLET (UD) PO SCH (09:21)
[2022-04-16] MEDS: MULTIVITAMINS (DAILY MVI) TABLET (FP) PO SCH (09:21)
[2022-04-16] MEDS: PARoxetine HCL 20 MG TABLET PO SCH (09:21)
[2022-04-16] MEDS: DARUNAVIR 800 MG/COBICISTAT 150MG TABLET PO SCH (09:21)
[2022-04-16] MEDS: POTASSIUM CHLORIDE TABS 20 MEQ TABLET.ER (FP) PO SCH (09:21)
[2022-04-16] MEDS: FUROSEMIDE 40 MG/4 ML INJECTABLE VIAL IVPB SCH (09:23)
[2022-04-16] MEDS: ENOXAPARIN NA (PORCINE) 40 MG/0.4 ML DISP.SYRIN SQ SCH (09:30)
[2022-04-16] MEDS: ATORVASTATIN CA 10 MG TABLET (FP) PO SCH (21:30)
[2022-04-16] MEDS: GABAPENTIN 300 MG CAPSULE PO SCH (21:30)
[2022-04-17] MEDS: GABAPENTIN 100 MG CAPSULE PO SCH ×2 (07:57→17:03)
[2022-04-17] MEDS: PARoxetine HCL 20 MG TABLET PO SCH (09:57)
[2022-04-17] MEDS: MULTIVITAMINS (DAILY MVI) TABLET (FP) PO SCH (09:57)
[2022-04-17] MEDS: PANTOPRAZOLE 20 MG TABLET PO SCH (09:57)
[2022-04-17] MEDS: DARUNAVIR 800 MG/COBICISTAT 150MG TABLET PO SCH (09:57)
[2022-04-17] MEDS: POTASSIUM CHLORIDE TABS 20 MEQ TABLET.ER (FP) PO SCH (09:57)
[2022-04-17] MEDS: EMTRICITABINE/TENOFOV ALAFENAM (DESCOVY) TABLET PO SCH (09:57)
[2022-04-17] MEDS: predniSONE 20 MG TABLET (UD) PO SCH (09:57)
[2022-04-17] MEDS: FUROSEMIDE 40 MG/4 ML INJECTABLE VIAL IVPB SCH (10:04)
[2022-04-17] MEDS: ACETAMINOPHEN 325 MG TABLET (FP) PO PRN (21:34)
[2022-04-17] MEDS: GABAPENTIN 300 MG CAPSULE PO SCH (21:44)
[2022-04-17] MEDS: ATORVASTATIN CA 10 MG TABLET (FP) PO SCH (22:00)
[2022-04-18] MEDS: GABAPENTIN 100 MG CAPSULE PO SCH ×2 (07:22→17:05)
[2022-04-18] MEDS: FUROSEMIDE 40 MG/4 ML INJECTABLE VIAL IVPB SCH (09:36)
[2022-04-18] MEDS: POTASSIUM CHLORIDE TABS 20 MEQ TABLET.ER (FP) PO SCH (09:36)
[2022-04-18] MEDS: predniSONE 20 MG TABLET (UD) PO SCH (09:36)
[2022-04-18] MEDS: MULTIVITAMINS (DAILY MVI) TABLET (FP) PO SCH (09:37)
[2022-04-18] MEDS: PANTOPRAZOLE 20 MG TABLET PO SCH (09:37)
[2022-04-18] MEDS: EMTRICITABINE/TENOFOV ALAFENAM (DESCOVY) TABLET PO SCH (09:37)
[2022-04-18] MEDS: DARUNAVIR 800 MG/COBICISTAT 150MG TABLET PO SCH (09:37)
[2022-04-18] MEDS: PARoxetine HCL 20 MG TABLET PO SCH (09:37)
[2022-04-18] MEDS: GABAPENTIN 300 MG CAPSULE PO SCH (21:14)
[2022-04-18] MEDS: ATORVASTATIN CA 10 MG TABLET (FP) PO SCH (21:15)
[2022-04-19 08:18] LABS: HEMATOCRIT 40.4 % (32.4-45.2); HEMOGLOBIN 13.5 GM/dL (10.7-15.3); MCH 33.6 pg (25.7-33.7); MCHC 33.5 g/dl (32.0-36.0); MEAN CELL VOLUME 100.2 fl (80-96); MEAN PLT VOLUME 8.7 fl (7.5-11.1); PLATELET COUNT 345 10^3/uL (134-434); RBC 4.03 M/mm3 (3.60-5.2); RDW 14.9 % (11.6-15.6); WHITE BLOOD COUNT 17.2 K/mm3 (4.0-10.0)
[2022-04-19 08:50] LABS: CALCIUM 10.2 mg/dL (8.5-10.1)
[2022-04-19 08:51] LABS: ALBUMIN 2.6 g/dl (3.4-5.0); ANISOCYTOSIS 1+; BLOOD UREA NITROGEN 50.5 mg/dL (7-18); MACROCYTOSIS 1+
[2022-04-19 08:54] LABS: CREATININE 0.8 mg/dL (0.55-1.3)
[2022-04-19 08:56] LABS: BILIRUBIN,TOTAL 0.5 mg/dL (0.2-1); TOT PROT 6.7 g/dl (6.4-8.2)
[2022-04-19] MEDS: FUROSEMIDE 40 MG/4 ML INJECTABLE VIAL IVPB SCH (10:59)
[2022-04-19] MEDS: PARoxetine HCL 20 MG TABLET PO SCH (11:00)
[2022-04-19] MEDS: POTASSIUM CHLORIDE TABS 20 MEQ TABLET.ER (FP) PO SCH (11:00)
[2022-04-19] MEDS: GABAPENTIN 100 MG CAPSULE PO SCH ×2 (11:00→18:36)
[2022-04-19] MEDS: MULTIVITAMINS (DAILY MVI) TABLET (FP) PO SCH (11:00)
[2022-04-19] MEDS: PANTOPRAZOLE 20 MG TABLET PO SCH (11:00)
[2022-04-19] MEDS: EMTRICITABINE/TENOFOV ALAFENAM (DESCOVY) TABLET PO SCH (11:02)
[2022-04-19] MEDS: DARUNAVIR 800 MG/COBICISTAT 150MG TABLET PO SCH (11:03)
[2022-04-19] MEDS: predniSONE 20 MG TABLET (UD) PO SCH (11:05)
[2022-04-19] MEDS: ATORVASTATIN CA 10 MG TABLET (FP) PO SCH (21:04)
[2022-04-19] MEDS: GABAPENTIN 300 MG CAPSULE PO SCH (21:04)
[2022-04-20] MEDS: PANTOPRAZOLE 20 MG TABLET PO SCH (09:28)
[2022-04-20] MEDS: PARoxetine HCL 20 MG TABLET PO SCH (09:28)
[2022-04-20] MEDS: GABAPENTIN 100 MG CAPSULE PO SCH ×2 (09:28→16:47)
[2022-04-20] MEDS: MULTIVITAMINS (DAILY MVI) TABLET (FP) PO SCH (09:29)
[2022-04-20] MEDS: FUROSEMIDE 40 MG/4 ML INJECTABLE VIAL IVPB SCH (09:29)
[2022-04-20] MEDS: EMTRICITABINE/TENOFOV ALAFENAM (DESCOVY) TABLET PO SCH (09:29)
[2022-04-20] MEDS: DARUNAVIR 800 MG/COBICISTAT 150MG TABLET PO SCH (09:29)
[2022-04-20] MEDS: predniSONE 20 MG TABLET (UD) PO SCH (09:29)
[2022-04-20] MEDS ORDERED: POTASSIUM CHLORIDE TABS 20 MEQ TABLET.ER (FP) PO SCH (10:00)
[2022-04-20] MEDS: ATORVASTATIN CA 10 MG TABLET (FP) PO SCH (21:50)
[2022-04-20] MEDS: GABAPENTIN 300 MG CAPSULE PO SCH (21:50)
[2022-04-21] MEDS: GABAPENTIN 100 MG CAPSULE PO SCH ×2 (08:32→17:06)
[2022-04-21] MEDS ORDERED: REGADENOSON 0.4 MG/5 ML PRE-FILLED SYRINGE IVPUSH ONE ×2 (10:33→11:15)
[2022-04-21] MEDS: PIPERACILLIN/TAZOB 3.375 GM 3.375 GM in DEXTROSE 5%-WATER - 50 ML IVPB SCH ×2 (12:48→17:06)
[2022-04-21] MEDS: PANTOPRAZOLE 20 MG TABLET PO SCH (12:54)
[2022-04-21] MEDS: MULTIVITAMINS (DAILY MVI) TABLET (FP) PO SCH (12:54)
[2022-04-21] MEDS: FUROSEMIDE 40 MG/4 ML INJECTABLE VIAL IVPB SCH (12:54)
[2022-04-21] MEDS: predniSONE 20 MG TABLET (UD) PO SCH (12:54)
[2022-04-21] MEDS: PARoxetine HCL 20 MG TABLET PO SCH (12:54)
[2022-04-21] MEDS: DARUNAVIR 800 MG/COBICISTAT 150MG TABLET PO SCH (12:54)
[2022-04-21] MEDS: EMTRICITABINE/TENOFOV ALAFENAM (DESCOVY) TABLET PO SCH (12:54)
[2022-04-21] MEDS: metoPROLOL SUCCINATE 25 MG TAB.SR.24H (FP) PO SCH (14:36)
[2022-04-21 15:05] LABS: HEMATOCRIT 45.9 % (32.4-45.2); MCH 32.8 pg (25.7-33.7); MCHC 32.6 g/dl (32.0-36.0); MEAN CELL VOLUME 100.7 fl (80-96); MEAN PLT VOLUME 8.2 fl (7.5-11.1); PLATELET COUNT 267 10^3/uL (134-434); RBC 4.55 M/mm3 (3.60-5.2); RDW 15.4 % (11.6-15.6); WHITE BLOOD COUNT 19.3 K/mm3 (4.0-10.0)
[2022-04-21 15:12] LABS: INR 1.05 (0.83-1.09); PROTHROMBIN TIME (PATIENT) 12.1 SEC (9.7-13.0)
[2022-04-21 15:33] LABS: CALCIUM 10.5 mg/dL (8.5-10.1)
[2022-04-21 15:34] LABS: BLOOD UREA NITROGEN 37.9 mg/dL (7-18); MAGNESIUM 2.7 mg/dL (1.8-2.4)
[2022-04-21 15:37] LABS: CREATININE 0.8 mg/dL (0.55-1.3); PHOSPHOROUS 2.5 mg/dL (2.5-4.9)
[2022-04-21 15:43] LABS: ANISOCYTOSIS 1+; MACROCYTOSIS 0
[2022-04-21] MEDS ORDERED: PIPERACILLIN/TAZOBACTAM 3.375 GM VIAL IVPB ONE (16:30)
[2022-04-21] MEDS ORDERED: DEXTROSE 5%-WATER - 50 ML IVPB ONE (16:31)
[2022-04-21] MEDS ORDERED: PIPERACILLIN/TAZOB 3.375 GM 3.375 GM in DEXTROSE 5%-WATER - 50 ML IVPB SCH (18:00)
[2022-04-21] MEDS: GABAPENTIN 300 MG CAPSULE PO SCH (21:48)
[2022-04-21] MEDS: ATORVASTATIN CA 10 MG TABLET (FP) PO SCH (21:48)
[2022-04-22] MEDS ORDERED: PIPERACILLIN/TAZOBACTAM 3.375 GM VIAL IVPB ONE ×2 (01:07→09:59)
[2022-04-22] MEDS ORDERED: DEXTROSE 5%-WATER - 50 ML IVPB ONE ×2 (01:08→09:59)
[2022-04-22] MEDS: PIPERACILLIN/TAZOB 3.375 GM 3.375 GM in DEXTROSE 5%-WATER - 50 ML IVPB SCH ×3 (01:19→17:19)
[2022-04-22] MEDS: GABAPENTIN 100 MG CAPSULE PO SCH ×2 (10:15→17:19)
[2022-04-22] MEDS: EMTRICITABINE/TENOFOV ALAFENAM (DESCOVY) TABLET PO SCH (10:15)
[2022-04-22] MEDS: predniSONE 20 MG TABLET (UD) PO SCH (10:15)
[2022-04-22] MEDS: MULTIVITAMINS (DAILY MVI) TABLET (FP) PO SCH (10:15)
[2022-04-22] MEDS: PARoxetine HCL 20 MG TABLET PO SCH (10:15)
[2022-04-22] MEDS: metoPROLOL SUCCINATE 25 MG TAB.SR.24H (FP) PO SCH (10:15)
[2022-04-22] MEDS: FUROSEMIDE 40 MG/4 ML INJECTABLE VIAL IVPB SCH (10:15)
[2022-04-22] MEDS: DARUNAVIR 800 MG/COBICISTAT 150MG TABLET PO SCH (10:17)
[2022-04-22] MEDS: VANCOMYCIN 250 MG/5 ML ORAL SOLUTION PO SCH ×2 (11:28→17:20)
[2022-04-22] MEDS: GABAPENTIN 300 MG CAPSULE PO SCH (22:16)
[2022-04-22] MEDS: ATORVASTATIN CA 10 MG TABLET (FP) PO SCH (22:16)
[2022-04-23] MEDS: VANCOMYCIN 250 MG/5 ML ORAL SOLUTION PO SCH ×5 (01:00→23:33)
[2022-04-23] MEDS ORDERED: PIPERACILLIN/TAZOBACTAM 3.375 GM VIAL IVPB ONE ×3 (01:01→16:50)
[2022-04-23] MEDS ORDERED: DEXTROSE 5%-WATER - 50 ML IVPB ONE ×3 (01:01→16:51)
[2022-04-23] MEDS: PIPERACILLIN/TAZOB 3.375 GM 3.375 GM in DEXTROSE 5%-WATER - 50 ML IVPB SCH ×3 (01:02→17:31)
[2022-04-23 05:07] LABS: CMV IgM < 30.0 AU/mL (0.0-29.9)
[2022-04-23 08:53] LABS: HEMATOCRIT 40.1 % (32.4-45.2); HEMOGLOBIN 13.1 GM/dL (10.7-15.3); MCHC 32.6 g/dl (32.0-36.0); MEAN CELL VOLUME 101.3 fl (80-96); MEAN PLT VOLUME 8.7 fl (7.5-11.1); PLATELET COUNT 246 10^3/uL (134-434); RBC 3.96 M/mm3 (3.60-5.2); RDW 15.1 % (11.6-15.6); WHITE BLOOD COUNT 19.3 K/mm3 (4.0-10.0)
[2022-04-23 09:07] LABS: CALCIUM 9.6 mg/dL (8.5-10.1)
[2022-04-23 09:08] LABS: BLOOD UREA NITROGEN 38.2 mg/dL (7-18); MAGNESIUM 2.7 mg/dL (1.8-2.4)
[2022-04-23 09:11] LABS: CREATININE 0.9 mg/dL (0.55-1.3); PHOSPHOROUS 3.1 mg/dL (2.5-4.9)
[2022-04-23 10:12] LABS: ANISOCYTOSIS 2+; MACROCYTOSIS 0
[2022-04-23] MEDS: PARoxetine HCL 20 MG TABLET PO SCH (11:04)
[2022-04-23] MEDS: predniSONE 20 MG TABLET (UD) PO SCH (11:04)
[2022-04-23] MEDS: GABAPENTIN 100 MG CAPSULE PO SCH ×2 (11:04→17:30)
[2022-04-23] MEDS: DARUNAVIR 800 MG/COBICISTAT 150MG TABLET PO SCH (11:04)
[2022-04-23] MEDS: EMTRICITABINE/TENOFOV ALAFENAM (DESCOVY) TABLET PO SCH (11:04)
[2022-04-23] MEDS: FUROSEMIDE 40 MG/4 ML INJECTABLE VIAL IVPB SCH (11:04)
[2022-04-23] MEDS: MULTIVITAMINS (DAILY MVI) TABLET (FP) PO SCH (11:05)
[2022-04-23] MEDS: metoPROLOL SUCCINATE 25 MG TAB.SR.24H (FP) PO SCH (11:05)
[2022-04-23] MEDS ORDERED: ACETAMINOPHEN 1000 MG/100 ML BAG IVPB ONE (21:43)
[2022-04-23] MEDS: ATORVASTATIN CA 10 MG TABLET (FP) PO SCH (22:17)
[2022-04-23] MEDS: GABAPENTIN 300 MG CAPSULE PO SCH (22:17)
[2022-04-24] MEDS ORDERED: PIPERACILLIN/TAZOBACTAM 3.375 GM VIAL IVPB ONE ×3 (01:05→16:52)
[2022-04-24] MEDS ORDERED: DEXTROSE 5%-WATER - 50 ML IVPB ONE ×3 (01:05→16:53)
[2022-04-24] MEDS: PIPERACILLIN/TAZOB 3.375 GM 3.375 GM in DEXTROSE 5%-WATER - 50 ML IVPB SCH ×3 (01:22→17:12)
[2022-04-24] MEDS: VANCOMYCIN 250 MG/5 ML ORAL SOLUTION PO SCH (06:01)
[2022-04-24] MEDS: GABAPENTIN 100 MG CAPSULE PO SCH ×2 (08:21→17:13)
[2022-04-24 08:53] LABS: INR 1.1 (0.83-1.09); PROTHROMBIN TIME (PATIENT) 12.7 SEC (9.7-13.0)
[2022-04-24 09:10] LABS: HEMATOCRIT 42.5 % (32.4-45.2); HEMOGLOBIN 14.1 GM/dL (10.7-15.3); MCH 33.5 pg (25.7-33.7); MCHC 33.1 g/dl (32.0-36.0); MEAN CELL VOLUME 101.3 fl (80-96); MEAN PLT VOLUME 8.7 fl (7.5-11.1); PLATELET COUNT 227 10^3/uL (134-434); RDW 15.6 % (11.6-15.6); WHITE BLOOD COUNT 16.7 K/mm3 (4.0-10.0)
[2022-04-24 09:15] LABS: CALCIUM 9.7 mg/dL (8.5-10.1)
[2022-04-24 09:17] LABS: ALBUMIN 2.6 g/dl (3.4-5.0)
[2022-04-24 09:19] LABS: BILIRUBIN,DIRECT 0.4 mg/dL (0.0-0.2); CREATININE 0.9 mg/dL (0.55-1.3)
[2022-04-24 09:21] LABS: TOT PROT 6.4 g/dl (6.4-8.2)
[2022-04-24 09:22] LABS: BILIRUBIN,TOTAL 0.7 mg/dL (0.2-1)
[2022-04-24] MEDS: PARoxetine HCL 20 MG TABLET PO SCH (09:54)
[2022-04-24] MEDS: EMTRICITABINE/TENOFOV ALAFENAM (DESCOVY) TABLET PO SCH (09:54)
[2022-04-24] MEDS: metoPROLOL SUCCINATE 25 MG TAB.SR.24H (FP) PO SCH (09:54)
[2022-04-24] MEDS: FUROSEMIDE 40 MG/4 ML INJECTABLE VIAL IVPB SCH (09:54)
[2022-04-24] MEDS: predniSONE 20 MG TABLET (UD) PO SCH (09:54)
[2022-04-24] MEDS: MULTIVITAMINS (DAILY MVI) TABLET (FP) PO SCH (09:55)
[2022-04-24] MEDS: DARUNAVIR 800 MG/COBICISTAT 150MG TABLET PO SCH (09:55)
[2022-04-24 13:49] LABS: ANISOCYTOSIS 0; HELMET CELLS 0; HOWELL-JOLLY BODIES 0; MACROCYTOSIS 0; OVALOCYTE 0; ROULEAU 0; SICKELED CELLS 0; TARGET CELLS 0; TEAR DROP CELLS 0; TOXIC GRANULATION 0
[2022-04-24] MEDS: GABAPENTIN 300 MG CAPSULE PO SCH (22:12)
[2022-04-24] MEDS: ATORVASTATIN CA 10 MG TABLET (FP) PO SCH (22:12)
[2022-04-25] MEDS ORDERED: DEXTROSE 5%-WATER - 50 ML IVPB ONE ×3 (01:18→16:57)
[2022-04-25] MEDS ORDERED: PIPERACILLIN/TAZOBACTAM 3.375 GM VIAL IVPB ONE ×3 (01:18→16:57)
[2022-04-25] MEDS: PIPERACILLIN/TAZOB 3.375 GM 3.375 GM in DEXTROSE 5%-WATER - 50 ML IVPB SCH ×3 (02:19→17:49)
[2022-04-25] MEDS: GABAPENTIN 100 MG CAPSULE PO SCH ×2 (09:41→17:03)
[2022-04-25] MEDS: PARoxetine HCL 20 MG TABLET PO SCH (09:41)
[2022-04-25] MEDS: FUROSEMIDE 40 MG/4 ML INJECTABLE VIAL IVPB SCH (09:41)
[2022-04-25] MEDS: DARUNAVIR 800 MG/COBICISTAT 150MG TABLET PO SCH (09:41)
[2022-04-25] MEDS: metoPROLOL SUCCINATE 25 MG TAB.SR.24H (FP) PO SCH (09:41)
[2022-04-25] MEDS: EMTRICITABINE/TENOFOV ALAFENAM (DESCOVY) TABLET PO SCH (09:41)
[2022-04-25] MEDS: MULTIVITAMINS (DAILY MVI) TABLET (FP) PO SCH (09:41)
[2022-04-25] MEDS: predniSONE 20 MG TABLET (UD) PO SCH (09:42)
[2022-04-25] MEDS: ATORVASTATIN CA 10 MG TABLET (FP) PO SCH (22:01)
[2022-04-25] MEDS: GABAPENTIN 300 MG CAPSULE PO SCH (22:01)
[2022-04-26] MEDS ORDERED: DEXTROSE 5%-WATER - 50 ML IVPB ONE ×3 (01:01→16:21)
[2022-04-26] MEDS ORDERED: PIPERACILLIN/TAZOBACTAM 3.375 GM VIAL IVPB ONE ×3 (01:01→16:21)
[2022-04-26] MEDS: PIPERACILLIN/TAZOB 3.375 GM 3.375 GM in DEXTROSE 5%-WATER - 50 ML IVPB SCH ×3 (01:29→17:02)
[2022-04-26] MEDS: GABAPENTIN 100 MG CAPSULE PO SCH ×2 (09:02→16:56)
[2022-04-26] MEDS: FUROSEMIDE 40 MG/4 ML INJECTABLE VIAL IVPB SCH (10:19)
[2022-04-26] MEDS: predniSONE 20 MG TABLET (UD) PO SCH (10:19)
[2022-04-26] MEDS: EMTRICITABINE/TENOFOV ALAFENAM (DESCOVY) TABLET PO SCH (10:19)
[2022-04-26] MEDS: metoPROLOL SUCCINATE 25 MG TAB.SR.24H (FP) PO SCH (10:20)
[2022-04-26] MEDS: MULTIVITAMINS (DAILY MVI) TABLET (FP) PO SCH (10:20)
[2022-04-26] MEDS: DARUNAVIR 800 MG/COBICISTAT 150MG TABLET PO SCH (10:20)
[2022-04-26] MEDS: PARoxetine HCL 20 MG TABLET PO SCH (10:20)
[2022-04-26] MEDS: GABAPENTIN 300 MG CAPSULE PO SCH (22:11)
[2022-04-26] MEDS: ATORVASTATIN CA 10 MG TABLET (FP) PO SCH (22:12)
[2022-04-27] MEDS ORDERED: DEXTROSE 5%-WATER - 50 ML IVPB ONE ×3 (01:21→16:48)
[2022-04-27] MEDS ORDERED: PIPERACILLIN/TAZOBACTAM 3.375 GM VIAL IVPB ONE ×3 (01:21→16:48)
[2022-04-27] MEDS: PIPERACILLIN/TAZOB 3.375 GM 3.375 GM in DEXTROSE 5%-WATER - 50 ML IVPB SCH ×3 (02:15→17:04)
[2022-04-27] MEDS: GABAPENTIN 100 MG CAPSULE PO SCH ×2 (08:30→17:04)
[2022-04-27 09:08] LABS: CHLORIDE 89 mmol/L (98-107); SODIUM 137 mmol/L (136-145)
[2022-04-27 09:14] LABS: CALCIUM 8.9 mg/dL (8.5-10.1)
[2022-04-27 09:15] LABS: ALBUMIN 2.3 g/dl (3.4-5.0); BLOOD UREA NITROGEN 17.7 mg/dL (7-18); CO2 38 mmol/L (21-32); GLUCOSE,RANDOM 109 mg/dL (74-106)
[2022-04-27 09:18] LABS: CREATININE 0.7 mg/dL (0.55-1.3); SGOT/AST 40 U/L (15-37); SGPT/ALT 46 U/L (13-61)
[2022-04-27 09:20] LABS: ALK PHOS 112 U/L (45-117); BILIRUBIN,TOTAL 0.9 mg/dL (0.2-1); TOT PROT 5.8 g/dl (6.4-8.2)
[2022-04-27 09:22] LABS: HEMATOCRIT 37.3 % (32.4-45.2); HEMOGLOBIN 12.4 GM/dL (10.7-15.3); MCH 33.4 pg (25.7-33.7); MCHC 33.3 g/dl (32.0-36.0); MEAN CELL VOLUME 100.5 fl (80-96); MEAN PLT VOLUME 9.1 fl (7.5-11.1); PLATELET COUNT 200 10^3/uL (134-434); RBC 3.71 M/mm3 (3.60-5.2); RDW 15.4 % (11.6-15.6); WHITE BLOOD COUNT 14.9 K/mm3 (4.0-10.0)
[2022-04-27] MEDS: predniSONE 20 MG TABLET (UD) PO SCH (09:22)
[2022-04-27] MEDS: EMTRICITABINE/TENOFOV ALAFENAM (DESCOVY) TABLET PO SCH (09:23)
[2022-04-27] MEDS: PARoxetine HCL 20 MG TABLET PO SCH (09:23)
[2022-04-27] MEDS: DARUNAVIR 800 MG/COBICISTAT 150MG TABLET PO SCH (09:23)
[2022-04-27] MEDS: MULTIVITAMINS (DAILY MVI) TABLET (FP) PO SCH (09:23)
[2022-04-27] MEDS: FUROSEMIDE 40 MG/4 ML INJECTABLE VIAL IVPB SCH (09:24)
[2022-04-27] MEDS: metoPROLOL SUCCINATE 25 MG TAB.SR.24H (FP) PO SCH (09:24)
[2022-04-27 09:35] LABS: ANION GAP 10 MMOL/L (8-16)
[2022-04-27] MEDS ORDERED: POTASSIUM CHLORIDE ORAL LIQUID 20 MEQ/15 ML PO ONE (09:46)
[2022-04-27] MEDS: KCL 10 MEQ IVPB 10 MEQ/100 ML INFUS.BAG IVPB SCH ×3 (10:07→12:17)
[2022-04-27 10:44] LABS: ANISOCYTOSIS 1+; MACROCYTOSIS 1+
[2022-04-27 16:41] LABS: BLOOD UREA NITROGEN 15.4 mg/dL (7-18)
[2022-04-27 16:44] LABS: CREATININE 0.8 mg/dL (0.55-1.3)
[2022-04-27] MEDS: GABAPENTIN 300 MG CAPSULE PO SCH (22:35)
[2022-04-27] MEDS: ATORVASTATIN CA 10 MG TABLET (FP) PO SCH (22:35)
[2022-04-27] MEDS: ACETAMINOPHEN 325 MG TABLET (FP) PO PRN (22:43)
[2022-04-28] MEDS ORDERED: DEXTROSE 5%-WATER - 50 ML IVPB ONE ×3 (00:44→17:15)
[2022-04-28] MEDS ORDERED: PIPERACILLIN/TAZOBACTAM 3.375 GM VIAL IVPB ONE ×3 (00:44→17:14)
[2022-04-28] MEDS: PIPERACILLIN/TAZOB 3.375 GM 3.375 GM in DEXTROSE 5%-WATER - 50 ML IVPB SCH ×3 (01:02→18:44)
[2022-04-28] MEDS: ACETAMINOPHEN 325 MG TABLET (FP) PO PRN (08:46)
[2022-04-28] MEDS: GABAPENTIN 100 MG CAPSULE PO SCH ×2 (08:47→18:44)
[2022-04-28 09:08] LABS: HEMATOCRIT 37.2 % (32.4-45.2); HEMOGLOBIN 12.4 GM/dL (10.7-15.3); MCH 33.5 pg (25.7-33.7); MCHC 33.2 g/dl (32.0-36.0); MEAN CELL VOLUME 100.8 fl (80-96); MEAN PLT VOLUME 8.7 fl (7.5-11.1); PLATELET COUNT 191 10^3/uL (134-434); RBC 3.69 M/mm3 (3.60-5.2); RDW 15.6 % (11.6-15.6); WHITE BLOOD COUNT 13.9 K/mm3 (4.0-10.0)
[2022-04-28 09:27] LABS: CHLORIDE 93 mmol/L (98-107); SODIUM 139 mmol/L (136-145)
[2022-04-28 09:42] LABS: ALBUMIN 2.1 g/dl (3.4-5.0); BLOOD UREA NITROGEN 15.5 mg/dL (7-18); CALCIUM 8.9 mg/dL (8.5-10.1); CO2 36 mmol/L (21-32); GLUCOSE,RANDOM 113 mg/dL (74-106)
[2022-04-28 09:45] LABS: CREATININE 0.7 mg/dL (0.55-1.3); SGOT/AST 36 U/L (15-37); SGPT/ALT 38 U/L (13-61)
[2022-04-28 09:46] LABS: ALK PHOS 110 U/L (45-117); BILIRUBIN,TOTAL 0.9 mg/dL (0.2-1)
[2022-04-28 09:47] LABS: TOT PROT 5.6 g/dl (6.4-8.2)
[2022-04-28 09:51] LABS: ANISOCYTOSIS 1+; MACROCYTOSIS 1+
[2022-04-28 10:10] LABS: ANION GAP 9 MMOL/L (8-16)
[2022-04-28] MEDS ORDERED: SODIUM CHLORIDE 500 ML IV STA ×2 (11:39→12:20)
[2022-04-28] MEDS: PARoxetine HCL 20 MG TABLET PO SCH (11:43)
[2022-04-28] MEDS: MULTIVITAMINS (DAILY MVI) TABLET (FP) PO SCH (11:43)
[2022-04-28] MEDS: EMTRICITABINE/TENOFOV ALAFENAM (DESCOVY) TABLET PO SCH (11:44)
[2022-04-28] MEDS: DARUNAVIR 800 MG/COBICISTAT 150MG TABLET PO SCH (11:44)
[2022-04-28] MEDS: predniSONE 20 MG TABLET (UD) PO SCH (11:49)
[2022-04-28] MEDS ORDERED: SODIUM CHLORIDE 0.9% 500 ML INFUS.BAG IV ONE (12:20)
[2022-04-28] MEDS ORDERED: SENNOSIDES 8.6MG TABLET (FP) PO PRN (12:22)
[2022-04-28] MEDS: FUROSEMIDE 40 MG/4 ML INJECTABLE VIAL IVPB SCH (12:33)
[2022-04-28] MEDS: metoPROLOL SUCCINATE 25 MG TAB.SR.24H (FP) PO SCH (12:33)
[2022-04-28] MEDS: KCL 10 MEQ IVPB 10 MEQ/100 ML INFUS.BAG IVPB SCH ×3 (13:38→17:28)
[2022-04-28] MEDS ORDERED: ONDANSETRON 4 MG/2 ML VIAL IVPUSH PRN (15:36)
[2022-04-28] MEDS: ATORVASTATIN CA 10 MG TABLET (FP) PO SCH (23:45)
[2022-04-28] MEDS: GABAPENTIN 300 MG CAPSULE PO SCH (23:45)
[2022-04-29] MEDS ORDERED: DEXTROSE 5%-WATER - 50 ML IVPB ONE ×3 (02:09→18:37)
[2022-04-29] MEDS ORDERED: PIPERACILLIN/TAZOBACTAM 3.375 GM VIAL IVPB ONE ×3 (02:09→18:37)
[2022-04-29] MEDS: PIPERACILLIN/TAZOB 3.375 GM 3.375 GM in DEXTROSE 5%-WATER - 50 ML IVPB SCH ×3 (02:58→18:41)
[2022-04-29 07:26] LABS: BASO % 0.4 % (0-2.0); EOS % 0.3 % (0-4.5); HEMOGLOBIN 11.9 GM/dL (10.7-15.3); LYMPH % 13.2 % (8-40); MCH 33.1 pg (25.7-33.7); MCHC 33.1 g/dl (32.0-36.0); MEAN CELL VOLUME 100.1 fl (80-96); MONO % 9.6 % (3.8-10.2); NEUT % 76.5 % (42.8-82.8); PLATELET COUNT 186 10^3/uL (134-434); RBC 3.59 M/mm3 (3.60-5.2); RDW 15.5 % (11.6-15.6); WHITE BLOOD COUNT 13.5 K/mm3 (4.0-10.0)
[2022-04-29 07:42] LABS: CHLORIDE 97 mmol/L (98-107); SODIUM 138 mmol/L (136-145)
[2022-04-29 07:45] LABS: CALCIUM 8.9 mg/dL (8.5-10.1)
[2022-04-29 07:46] LABS: BLOOD UREA NITROGEN 14.3 mg/dL (7-18); CO2 33 mmol/L (21-32); GLUCOSE,RANDOM 126 mg/dL (74-106); MAGNESIUM 2.5 mg/dL (1.8-2.4)
[2022-04-29 07:49] LABS: CREATININE 0.6 mg/dL (0.55-1.3); SGOT/AST 28 U/L (15-37); SGPT/ALT 32 U/L (13-61)
[2022-04-29 07:50] LABS: BILIRUBIN,TOTAL 0.8 mg/dL (0.2-1); TOT PROT 5.5 g/dl (6.4-8.2)
[2022-04-29 07:52] LABS: ALK PHOS 103 U/L (45-117)
[2022-04-29 08:20] LABS: ANION GAP 8 MMOL/L (8-16)
[2022-04-29] MEDS ORDERED: POTASSIUM CHLORIDE TABS 20 MEQ TABLET.ER (FP) PO ONE ×2 (09:30→11:31)
[2022-04-29] MEDS: GABAPENTIN 100 MG CAPSULE PO SCH ×2 (09:50→18:41)
[2022-04-29] MEDS: metoPROLOL SUCCINATE 25 MG TAB.SR.24H (FP) PO SCH (10:05)
[2022-04-29] MEDS: KCL 10 MEQ IVPB 10 MEQ/100 ML INFUS.BAG IVPB SCH ×3 (10:05→14:46)
[2022-04-29] MEDS: MULTIVITAMINS (DAILY MVI) TABLET (FP) PO SCH (10:05)
[2022-04-29] MEDS: DARUNAVIR 800 MG/COBICISTAT 150MG TABLET PO SCH (10:06)
[2022-04-29] MEDS: EMTRICITABINE/TENOFOV ALAFENAM (DESCOVY) TABLET PO SCH (10:06)
[2022-04-29] MEDS: PARoxetine HCL 20 MG TABLET PO SCH (10:06)
[2022-04-29] MEDS: FUROSEMIDE 40 MG/4 ML INJECTABLE VIAL IVPB SCH (10:06)
[2022-04-29 19:31] LABS: CALCIUM 8.9 mg/dL (8.5-10.1)
[2022-04-29 19:32] LABS: BLOOD UREA NITROGEN 14.2 mg/dL (7-18)
[2022-04-29 19:35] LABS: CREATININE 0.7 mg/dL (0.55-1.3)
[2022-04-29] MEDS: GABAPENTIN 300 MG CAPSULE PO SCH (22:18)
[2022-04-29] MEDS: ATORVASTATIN CA 10 MG TABLET (FP) PO SCH (22:18)
[2022-04-29] MEDS: NYSTATIN 100,000 UNIT/GM TOPICAL CREAM 15 GM TUBE TP SCH (22:19)
[2022-04-30] MEDS ORDERED: PIPERACILLIN/TAZOBACTAM 3.375 GM VIAL IVPB ONE ×3 (00:45→17:53)
[2022-04-30] MEDS ORDERED: DEXTROSE 5%-WATER - 50 ML IVPB ONE ×3 (00:45→17:53)
[2022-04-30] MEDS: PIPERACILLIN/TAZOB 3.375 GM 3.375 GM in DEXTROSE 5%-WATER - 50 ML IVPB SCH ×3 (01:02→17:57)
[2022-04-30] MEDS: metoPROLOL SUCCINATE 25 MG TAB.SR.24H (FP) PO SCH (09:39)
[2022-04-30] MEDS: EMTRICITABINE/TENOFOV ALAFENAM (DESCOVY) TABLET PO SCH (09:40)
[2022-04-30] MEDS: PARoxetine HCL 20 MG TABLET PO SCH (09:40)
[2022-04-30] MEDS: MULTIVITAMINS (DAILY MVI) TABLET (FP) PO SCH (09:40)
[2022-04-30] MEDS: FUROSEMIDE 40 MG/4 ML INJECTABLE VIAL IVPB SCH (09:40)
[2022-04-30] MEDS: GABAPENTIN 100 MG CAPSULE PO SCH ×2 (09:40→17:57)
[2022-04-30] MEDS: DARUNAVIR 800 MG/COBICISTAT 150MG TABLET PO SCH (09:42)
[2022-04-30] MEDS: NYSTATIN 100,000 UNIT/GM TOPICAL CREAM 15 GM TUBE TP SCH ×2 (09:44→21:59)
[2022-04-30 10:16] LABS: CALCIUM 8.9 mg/dL (8.5-10.1)
[2022-04-30 10:17] LABS: BLOOD UREA NITROGEN 16.1 mg/dL (7-18)
[2022-04-30 10:20] LABS: CREATININE 0.5 mg/dL (0.55-1.3)
[2022-04-30] MEDS: POTASSIUM CHLORIDE ORAL LIQUID 20 MEQ/15 ML PO SCH (17:57)
[2022-04-30] MEDS: GABAPENTIN 300 MG CAPSULE PO SCH (21:58)
[2022-04-30] MEDS: ATORVASTATIN CA 10 MG TABLET (FP) PO SCH (21:58)
[2022-05-01] MEDS ORDERED: PIPERACILLIN/TAZOBACTAM 3.375 GM VIAL IVPB ONE ×4 (01:28→23:16)
[2022-05-01] MEDS ORDERED: DEXTROSE 5%-WATER - 50 ML IVPB ONE ×4 (01:29→23:16)
[2022-05-01] MEDS: PIPERACILLIN/TAZOB 3.375 GM 3.375 GM in DEXTROSE 5%-WATER - 50 ML IVPB SCH ×3 (01:41→17:22)
[2022-05-01] MEDS: EMTRICITABINE/TENOFOV ALAFENAM (DESCOVY) TABLET PO SCH (10:02)
[2022-05-01] MEDS: DARUNAVIR 800 MG/COBICISTAT 150MG TABLET PO SCH (10:02)
[2022-05-01] MEDS: POTASSIUM CHLORIDE ORAL LIQUID 20 MEQ/15 ML PO SCH (10:02)
[2022-05-01] MEDS: PARoxetine HCL 20 MG TABLET PO SCH (10:03)
[2022-05-01] MEDS: MULTIVITAMINS (DAILY MVI) TABLET (FP) PO SCH (10:03)
[2022-05-01] MEDS: GABAPENTIN 100 MG CAPSULE PO SCH ×2 (10:03→17:22)
[2022-05-01] MEDS: FUROSEMIDE 40 MG/4 ML INJECTABLE VIAL IVPB SCH (10:03)
[2022-05-01] MEDS: metoPROLOL SUCCINATE 25 MG TAB.SR.24H (FP) PO SCH (10:04)
[2022-05-01] MEDS: NYSTATIN 100,000 UNIT/GM TOPICAL CREAM 15 GM TUBE TP SCH ×2 (10:07→21:12)
[2022-05-01] MEDS: ACETAMINOPHEN 325 MG TABLET (FP) PO PRN (10:15)
[2022-05-01 10:43] LABS: BLOOD UREA NITROGEN 15.6 mg/dL (7-18)
[2022-05-01 10:46] LABS: CREATININE 0.5 mg/dL (0.55-1.3)
[2022-05-01] MEDS ORDERED: ALBUTEROL SO4 2.5/IPRATROPIUM 0.5 INH SOL 3 ML VIAL.NEB. NEB PRN (11:11)
[2022-05-01] MEDS: MIDODRINE HCL 2.5 MG TABLET PO SCH (17:30)
[2022-05-01] MEDS: HEPARIN NA (PORCINE) 5,000 UNITS/ML 1ML VIAL SQ SCH (21:11)
[2022-05-01] MEDS: GABAPENTIN 300 MG CAPSULE PO SCH (21:12)
[2022-05-01] MEDS: ATORVASTATIN CA 10 MG TABLET (FP) PO SCH (21:12)
[2022-05-02] MEDS: PIPERACILLIN/TAZOB 3.375 GM 3.375 GM in DEXTROSE 5%-WATER - 50 ML IVPB SCH ×3 (01:05→17:14)
[2022-05-02] MEDS ORDERED: DEXTROSE 5%-WATER - 50 ML IVPB ONE ×2 (08:25→16:58)
[2022-05-02] MEDS ORDERED: PIPERACILLIN/TAZOBACTAM 3.375 GM VIAL IVPB ONE ×3 (08:25→16:58)
[2022-05-02] MEDS: GABAPENTIN 100 MG CAPSULE PO SCH ×2 (09:00→16:47)
[2022-05-02] MEDS: HEPARIN NA (PORCINE) 5,000 UNITS/ML 1ML VIAL SQ SCH (09:00)
[2022-05-02] MEDS: MIDODRINE HCL 2.5 MG TABLET PO SCH ×2 (09:00→17:13)
[2022-05-02] MEDS: MULTIVITAMINS (DAILY MVI) TABLET (FP) PO SCH (09:00)
[2022-05-02] MEDS: PARoxetine HCL 20 MG TABLET PO SCH (09:00)
[2022-05-02] MEDS: POTASSIUM CHLORIDE ORAL LIQUID 20 MEQ/15 ML PO SCH (09:00)
[2022-05-02] MEDS: EMTRICITABINE/TENOFOV ALAFENAM (DESCOVY) TABLET PO SCH (09:01)
[2022-05-02] MEDS: DARUNAVIR 800 MG/COBICISTAT 150MG TABLET PO SCH (09:01)
[2022-05-02] MEDS: NYSTATIN 100,000 UNIT/GM TOPICAL CREAM 15 GM TUBE TP SCH ×2 (09:02→22:02)
[2022-05-02] MEDS: metoPROLOL SUCCINATE 25 MG TAB.SR.24H (FP) PO SCH (09:18)
[2022-05-02] MEDS: ACETAMINOPHEN 325 MG TABLET (FP) PO PRN (16:02)
[2022-05-02] MEDS ORDERED: HEPARIN NA (PORCINE) 5,000 UNITS/ML 1ML VIAL IVPUSH PRN ×4 (16:07→16:28)
[2022-05-02] MEDS ORDERED: HEPARIN SOD,PORK IN 0.45% NACL 25,000 UNITS/500 ML INFUS.BAG IVPB SCH (16:15)
[2022-05-02] MEDS ORDERED: HEPARIN NA (PORCINE) 5,000 UNITS/ML 1ML VIAL IVPUSH ONE (16:28)
[2022-05-02] MEDS ORDERED: HEPARIN INFUSION - 25,000 UNITS/500 ML INFUS.BAG IVPB SCH (16:30)
[2022-05-02 17:39] LABS: HEMATOCRIT 34.2 % (32.4-45.2); HEMOGLOBIN 11.6 GM/dL (10.7-15.3); MCH 34.1 pg (25.7-33.7); MCHC 33.8 g/dl (32.0-36.0); MEAN CELL VOLUME 100.8 fl (80-96); MEAN PLT VOLUME 8.8 fl (7.5-11.1); PLATELET COUNT 200 10^3/uL (134-434); RDW 16.4 % (11.6-15.6); WHITE BLOOD COUNT 15.2 K/mm3 (4.0-10.0)
[2022-05-02] MEDS: ATORVASTATIN CA 10 MG TABLET (FP) PO SCH (22:02)
[2022-05-02] MEDS: GABAPENTIN 300 MG CAPSULE PO SCH (22:02)
[2022-05-03] MEDS ORDERED: PIPERACILLIN/TAZOBACTAM 3.375 GM VIAL IVPB ONE ×2 (01:08→09:19)
[2022-05-03] MEDS ORDERED: DEXTROSE 5%-WATER - 50 ML IVPB ONE ×2 (01:08→09:19)
[2022-05-03] MEDS: PIPERACILLIN/TAZOB 3.375 GM 3.375 GM in DEXTROSE 5%-WATER - 50 ML IVPB SCH ×2 (02:01→09:32)
[2022-05-03 08:29] LABS: BLOOD UREA NITROGEN 13.5 mg/dL (7-18); CALCIUM 8.9 mg/dL (8.5-10.1); CREATININE 0.6 mg/dL (0.55-1.3)
[2022-05-03] MEDS: MULTIVITAMINS (DAILY MVI) TABLET (FP) PO SCH (09:32)
[2022-05-03] MEDS: MIDODRINE HCL 2.5 MG TABLET PO SCH (09:32)
[2022-05-03] MEDS: POTASSIUM CHLORIDE ORAL LIQUID 20 MEQ/15 ML PO SCH (09:32)
[2022-05-03] MEDS: PARoxetine HCL 20 MG TABLET PO SCH (09:33)
[2022-05-03] MEDS: metoPROLOL SUCCINATE 25 MG TAB.SR.24H (FP) PO SCH (09:33)
[2022-05-03] MEDS: GABAPENTIN 100 MG CAPSULE PO SCH (09:33)
[2022-05-03] MEDS: DARUNAVIR 800 MG/COBICISTAT 150MG TABLET PO SCH (09:33)
[2022-05-03] MEDS: EMTRICITABINE/TENOFOV ALAFENAM (DESCOVY) TABLET PO SCH (09:33)
[2022-05-03] MEDS: NYSTATIN 100,000 UNIT/GM TOPICAL CREAM 15 GM TUBE TP SCH (09:34)
[2022-05-03] MEDS ORDERED: HEPARIN NA (PORCINE) 5,000 UNITS/ML 1ML VIAL ONE ×2 (12:58→15:25)
[2022-05-03] MEDS ORDERED: LIDOCAINE HCL 1%, 10 MG/ML (20ML VIAL) ONE (13:39)
[2022-05-03] MEDS ORDERED: ALTEPLASE (CATHFLO) 2 MG/2 ML VIAL CVP ONE (14:45)
[2022-05-03] MEDS ORDERED: MIDAZOLAM HCL 2 MG/2 ML SINGLE DOSE VIAL ONE ×2 (15:08→15:49)
[2022-05-03] MEDS ORDERED: ceFAZolin SODIUM 1 GM VIAL ONE ×2 (15:16→15:18)
[2022-05-03] MEDS ORDERED: ceFAZolin SODIUM 1 GM VIAL IVPB ONE (15:20)
[2022-05-03] MEDS ORDERED: HEPARIN NA (PORCINE) 5,000 UNITS/ML 1ML VIAL SQ ONE ×2 (15:36)
[2022-05-03] MEDS ORDERED: LIDOCAINE HCL 1%, 10 MG/ML (20ML VIAL) INF ONE (15:54)
[2022-05-03] MEDS ORDERED: PROPOFOL 20 ML ONE (15:58)
[2022-05-03] MEDS ORDERED: FUROSEMIDE 40 MG/4 ML INJECTABLE VIAL ONE (17:47)
[2022-05-03] MEDS ORDERED: FUROSEMIDE 40 MG/4 ML INJECTABLE VIAL IVPUSH ONE ×2 (17:47→17:50)
[2022-05-03] MEDS ORDERED: HEPARIN INFUSION - 25,000 UNITS/500 ML INFUS.BAG IVPB ONE (19:01)
[2022-05-03] MEDS ORDERED: HEPARIN NA (PORCINE) 5,000 UNITS/ML 1ML VIAL IVPUSH PRN ×2 (19:07→19:08)
[2022-05-03] MEDS ORDERED: HEPARIN INFUSION - 25,000 UNITS/500 ML INFUS.BAG IVPB SCH (19:15)
[2022-05-03] MEDS: ATORVASTATIN CA 10 MG TABLET (FP) PO SCH (22:29)
[2022-05-03] MEDS: GABAPENTIN 300 MG CAPSULE PO SCH (22:29)
[2022-05-04] MEDS: NYSTATIN 100,000 UNIT/GM TOPICAL CREAM 15 GM TUBE TP SCH ×2 (01:10→09:32)
[2022-05-04] MEDS: PIPERACILLIN/TAZOB 3.375 GM 3.375 GM in DEXTROSE 5%-WATER - 50 ML IVPB SCH ×2 (02:47→09:27)
[2022-05-04] MEDS ORDERED: DEXTROSE 5%-WATER - 50 ML IVPB ONE ×2 (04:54→09:20)
[2022-05-04] MEDS ORDERED: PIPERACILLIN/TAZOBACTAM 3.375 GM VIAL IVPB ONE ×2 (04:54→09:20)
[2022-05-04 08:44] LABS: HEMATOCRIT 29.6 % (32.4-45.2); HEMOGLOBIN 10.1 GM/dL (10.7-15.3); MCHC 34.3 g/dl (32.0-36.0); MEAN CELL VOLUME 99.2 fl (80-96); MEAN PLT VOLUME 8.8 fl (7.5-11.1); PLATELET COUNT 192 10^3/uL (134-434); RBC 2.98 M/mm3 (3.60-5.2)
[2022-05-04] MEDS: MIDODRINE HCL 2.5 MG TABLET PO SCH ×2 (09:28→17:06)
[2022-05-04] MEDS: MULTIVITAMINS (DAILY MVI) TABLET (FP) PO SCH (09:28)
[2022-05-04] MEDS: POTASSIUM CHLORIDE ORAL LIQUID 20 MEQ/15 ML PO SCH (09:28)
[2022-05-04] MEDS: PARoxetine HCL 20 MG TABLET PO SCH (09:29)
[2022-05-04] MEDS: metoPROLOL SUCCINATE 25 MG TAB.SR.24H (FP) PO SCH (09:29)
[2022-05-04] MEDS: EMTRICITABINE/TENOFOV ALAFENAM (DESCOVY) TABLET PO SCH (09:29)
[2022-05-04] MEDS: GABAPENTIN 100 MG CAPSULE PO SCH ×2 (09:29→16:44)
[2022-05-04] MEDS: DARUNAVIR 800 MG/COBICISTAT 150MG TABLET PO SCH (09:29)
[2022-05-04] MEDS: FUROSEMIDE 40 MG/4 ML INJECTABLE VIAL IVPUSH SCH (12:24)
[2022-05-04] MEDS: ACETAMINOPHEN 325 MG TABLET (FP) PO PRN ×2 (13:34→22:19)
[2022-05-04] MEDS: ATORVASTATIN CA 10 MG TABLET (FP) PO SCH (21:36)
[2022-05-04] MEDS: GABAPENTIN 300 MG CAPSULE PO SCH (21:36)
[2022-05-04] MEDS: APIXABAN 5 MG TABLET PO SCH (21:36)
[2022-05-05] MEDS: NYSTATIN 100,000 UNIT/GM TOPICAL CREAM 15 GM TUBE TP SCH ×2 (01:42→10:25)
[2022-05-05 08:52] LABS: HEMATOCRIT 30.7 % (32.4-45.2); HEMOGLOBIN 10.7 GM/dL (10.7-15.3); MCH 34.6 pg (25.7-33.7); MCHC 34.6 g/dl (32.0-36.0); MEAN CELL VOLUME 99.9 fl (80-96); MEAN PLT VOLUME 8.5 fl (7.5-11.1); PLATELET COUNT 214 10^3/uL (134-434); RBC 3.08 M/mm3 (3.60-5.2); RDW 16.1 % (11.6-15.6); WHITE BLOOD COUNT 10.9 K/mm3 (4.0-10.0)
[2022-05-05 09:20] LABS: CALCIUM 8.6 mg/dL (8.5-10.1)
[2022-05-05 09:21] LABS: BLOOD UREA NITROGEN 15.2 mg/dL (7-18)
[2022-05-05 09:24] LABS: CREATININE 0.6 mg/dL (0.55-1.3)
[2022-05-05] MEDS: ACETAMINOPHEN 325 MG TABLET (FP) PO PRN ×2 (10:23→22:07)
[2022-05-05] MEDS: MIDODRINE HCL 2.5 MG TABLET PO SCH (10:23)
[2022-05-05] MEDS: MULTIVITAMINS (DAILY MVI) TABLET (FP) PO SCH (10:23)
[2022-05-05] MEDS: POTASSIUM CHLORIDE ORAL LIQUID 20 MEQ/15 ML PO SCH (10:23)
[2022-05-05] MEDS: GABAPENTIN 100 MG CAPSULE PO SCH ×2 (10:23→17:25)
[2022-05-05] MEDS: APIXABAN 5 MG TABLET PO SCH ×2 (10:23→22:07)
[2022-05-05] MEDS: PARoxetine HCL 20 MG TABLET PO SCH (10:23)
[2022-05-05] MEDS: FUROSEMIDE 40 MG/4 ML INJECTABLE VIAL IVPUSH SCH (10:24)
[2022-05-05] MEDS: DARUNAVIR 800 MG/COBICISTAT 150MG TABLET PO SCH (10:24)
[2022-05-05] MEDS: EMTRICITABINE/TENOFOV ALAFENAM (DESCOVY) TABLET PO SCH (10:24)
[2022-05-05] MEDS: metoPROLOL SUCCINATE 25 MG TAB.SR.24H (FP) PO SCH (10:38)
[2022-05-05] MEDS: MIDODRINE HCL 5 MG TABLET PO SCH (17:25)
[2022-05-05] MEDS: AMINO ACIDS/PROTEIN HYDROLYS 30 ML LIQUID.PKT PO SCH (17:25)
[2022-05-05] MEDS: GABAPENTIN 300 MG CAPSULE PO SCH (22:07)
[2022-05-05] MEDS: ATORVASTATIN CA 10 MG TABLET (FP) PO SCH (22:07)
[2022-05-06] MEDS: NYSTATIN 100,000 UNIT/GM TOPICAL CREAM 15 GM TUBE TP SCH ×3 (06:54→22:30)
[2022-05-06] MEDS: GABAPENTIN 100 MG CAPSULE PO SCH ×3 (06:54→17:08)
[2022-05-06] MEDS: MIDODRINE HCL 2.5 MG TABLET PO SCH (06:55)
[2022-05-06 09:05] LABS: HEMATOCRIT 31.3 % (32.4-45.2); HEMOGLOBIN 10.5 GM/dL (10.7-15.3); MCH 33.9 pg (25.7-33.7); MCHC 33.5 g/dl (32.0-36.0); MEAN CELL VOLUME 100.9 fl (80-96); MEAN PLT VOLUME 8.6 fl (7.5-11.1); PLATELET COUNT 257 10^3/uL (134-434); RBC 3.11 M/mm3 (3.60-5.2); RDW 15.8 % (11.6-15.6); WHITE BLOOD COUNT 10.8 K/mm3 (4.0-10.0)
[2022-05-06] MEDS: AMINO ACIDS/PROTEIN HYDROLYS 30 ML LIQUID.PKT PO SCH ×2 (09:19→17:08)
[2022-05-06] MEDS: POTASSIUM CHLORIDE ORAL LIQUID 20 MEQ/15 ML PO SCH (10:08)
[2022-05-06] MEDS: MIDODRINE HCL 5 MG TABLET PO SCH ×3 (10:08→17:08)
[2022-05-06] MEDS: metoPROLOL SUCCINATE 25 MG TAB.SR.24H (FP) PO SCH (10:08)
[2022-05-06] MEDS: APIXABAN 5 MG TABLET PO SCH ×2 (10:09→22:08)
[2022-05-06] MEDS: MULTIVITAMINS (DAILY MVI) TABLET (FP) PO SCH (10:09)
[2022-05-06] MEDS: PARoxetine HCL 20 MG TABLET PO SCH (10:09)
[2022-05-06] MEDS: FUROSEMIDE 40 MG/4 ML INJECTABLE VIAL IVPUSH SCH (10:18)
[2022-05-06] MEDS: DARUNAVIR 800 MG/COBICISTAT 150MG TABLET PO SCH (11:03)
[2022-05-06] MEDS: EMTRICITABINE/TENOFOV ALAFENAM (DESCOVY) TABLET PO SCH (11:04)
[2022-05-06 11:36] LABS: HEMATOCRIT 30.4 % (32.4-45.2); MCH 33.4 pg (25.7-33.7); MCHC 32.9 g/dl (32.0-36.0); MEAN CELL VOLUME 101.4 fl (80-96); MEAN PLT VOLUME 8.1 fl (7.5-11.1); PLATELET COUNT 253 10^3/uL (134-434); RDW 15.8 % (11.6-15.6); WHITE BLOOD COUNT 11.7 K/mm3 (4.0-10.0)
[2022-05-06] MEDS: ALBUTEROL SO4 0.083% IH SOL 2.5 MG/3 ML VIAL.NEB. NEB SCH (19:42)
[2022-05-06] MEDS ORDERED: ALBUTEROL SO4 0.083% IH SOL 2.5 MG/3 ML VIAL.NEB. NEB SCH (20:00)
[2022-05-06] MEDS: ATORVASTATIN CA 10 MG TABLET (FP) PO SCH (22:08)
[2022-05-06] MEDS: GABAPENTIN 300 MG CAPSULE PO SCH (22:10)
[2022-05-06] MEDS: guaiFENesin 600 MG TABLET.ER (FP) PO SCH (22:12)
[2022-05-07] MEDS: ALBUTEROL SO4 0.083% IH SOL 2.5 MG/3 ML VIAL.NEB. NEB SCH (08:51)
[2022-05-07] MEDS: POTASSIUM CHLORIDE ORAL LIQUID 20 MEQ/15 ML PO SCH (09:12)
[2022-05-07] MEDS: GABAPENTIN 100 MG CAPSULE PO SCH ×2 (09:12→16:39)
[2022-05-07] MEDS: PARoxetine HCL 20 MG TABLET PO SCH (09:12)
[2022-05-07] MEDS: AMINO ACIDS/PROTEIN HYDROLYS 30 ML LIQUID.PKT PO SCH ×2 (09:13→16:39)
[2022-05-07] MEDS: DARUNAVIR 800 MG/COBICISTAT 150MG TABLET PO SCH (09:13)
[2022-05-07] MEDS: guaiFENesin 600 MG TABLET.ER (FP) PO SCH ×2 (09:13→22:28)
[2022-05-07] MEDS: MIDODRINE HCL 5 MG TABLET PO SCH ×3 (09:13→17:36)
[2022-05-07] MEDS: EMTRICITABINE/TENOFOV ALAFENAM (DESCOVY) TABLET PO SCH (09:13)
[2022-05-07] MEDS: MULTIVITAMINS (DAILY MVI) TABLET (FP) PO SCH (09:13)
[2022-05-07] MEDS: NYSTATIN 100,000 UNIT/GM TOPICAL CREAM 15 GM TUBE TP SCH ×2 (09:13→22:28)
[2022-05-07] MEDS: APIXABAN 5 MG TABLET PO SCH ×2 (09:13→22:28)
[2022-05-07] MEDS: FUROSEMIDE 40 MG/4 ML INJECTABLE VIAL IVPUSH SCH (09:13)
[2022-05-07] MEDS: metoPROLOL SUCCINATE 25 MG TAB.SR.24H (FP) PO SCH (09:14)
[2022-05-07] MEDS ORDERED: ALBUTEROL SO4 0.083% IH SOL 2.5 MG/3 ML VIAL.NEB. NEB PRN (10:15)
[2022-05-07 10:26] LABS: BASO % 0.7 % (0-2.0); EOS % 1.5 % (0-4.5); HEMATOCRIT 32.7 % (32.4-45.2); HEMOGLOBIN 10.8 GM/dL (10.7-15.3); MCH 33.6 pg (25.7-33.7); MEAN CELL VOLUME 101.9 fl (80-96); MEAN PLT VOLUME 8.4 fl (7.5-11.1); MONO % 6.5 % (3.8-10.2); NEUT % 76.3 % (42.8-82.8); PLATELET COUNT 316 10^3/uL (134-434); RBC 3.21 M/mm3 (3.60-5.2); RDW 16.2 % (11.6-15.6)
[2022-05-07 10:55] LABS: BLOOD UREA NITROGEN 14.9 mg/dL (7-18); CALCIUM 8.5 mg/dL (8.5-10.1)
[2022-05-07 10:58] LABS: CREATININE 0.6 mg/dL (0.55-1.3)
[2022-05-07 11:00] LABS: BILIRUBIN,TOTAL 0.5 mg/dL (0.2-1); TOT PROT 5.2 g/dl (6.4-8.2)
[2022-05-07 11:01] LABS: ALBUMIN 1.6 g/dl (3.4-5.0)
[2022-05-07] MEDS: BUDESONIDE/FORMETEROL FUMARATE 160/4.5 mcg INHALER IH SCH ×2 (11:53→22:31)
[2022-05-07] MEDS: ALBUTEROL SO4 2.5/IPRATROPIUM 0.5 INH SOL 3 ML VIAL.NEB. NEB SCH ×3 (12:21→20:20)
[2022-05-07] MEDS: GABAPENTIN 300 MG CAPSULE PO SCH (22:28)
[2022-05-07] MEDS: ATORVASTATIN CA 10 MG TABLET (FP) PO SCH (22:28)
[2022-05-08 08:00] LABS: HEMATOCRIT 29.4 % (32.4-45.2); HEMOGLOBIN 9.8 GM/dL (10.7-15.3); MCHC 33.2 g/dl (32.0-36.0); MEAN CELL VOLUME 102.3 fl (80-96); MEAN PLT VOLUME 8.3 fl (7.5-11.1); PLATELET COUNT 321 10^3/uL (134-434); RBC 2.87 M/mm3 (3.60-5.2); RDW 16.2 % (11.6-15.6); WHITE BLOOD COUNT 10.1 K/mm3 (4.0-10.0)
[2022-05-08] MEDS: ALBUTEROL SO4 2.5/IPRATROPIUM 0.5 INH SOL 3 ML VIAL.NEB. NEB SCH ×4 (08:01→21:23)
[2022-05-08] MEDS: FUROSEMIDE 40 MG/4 ML INJECTABLE VIAL IVPUSH SCH (11:14)
[2022-05-08] MEDS: guaiFENesin 600 MG TABLET.ER (FP) PO SCH ×2 (11:14→22:44)
[2022-05-08] MEDS: AMINO ACIDS/PROTEIN HYDROLYS 30 ML LIQUID.PKT PO SCH ×2 (11:14→17:31)
[2022-05-08] MEDS: APIXABAN 5 MG TABLET PO SCH ×2 (11:14→22:44)
[2022-05-08] MEDS: GABAPENTIN 100 MG CAPSULE PO SCH ×2 (11:14→17:31)
[2022-05-08] MEDS: PARoxetine HCL 20 MG TABLET PO SCH (11:15)
[2022-05-08] MEDS: POTASSIUM CHLORIDE ORAL LIQUID 20 MEQ/15 ML PO SCH (11:15)
[2022-05-08] MEDS: DARUNAVIR 800 MG/COBICISTAT 150MG TABLET PO SCH (11:15)
[2022-05-08] MEDS: NYSTATIN 100,000 UNIT/GM TOPICAL CREAM 15 GM TUBE TP SCH ×2 (11:15→22:46)
[2022-05-08] MEDS: EMTRICITABINE/TENOFOV ALAFENAM (DESCOVY) TABLET PO SCH (11:15)
[2022-05-08] MEDS: MIDODRINE HCL 5 MG TABLET PO SCH ×3 (11:16→17:31)
[2022-05-08] MEDS: BUDESONIDE/FORMETEROL FUMARATE 160/4.5 mcg INHALER IH SCH ×2 (11:16→22:46)
[2022-05-08] MEDS: MULTIVITAMINS (DAILY MVI) TABLET (FP) PO SCH (11:16)
[2022-05-08] MEDS: metoPROLOL SUCCINATE 25 MG TAB.SR.24H (FP) PO SCH (11:17)
[2022-05-08] MEDS: GABAPENTIN 300 MG CAPSULE PO SCH (22:44)
[2022-05-08] MEDS: ATORVASTATIN CA 10 MG TABLET (FP) PO SCH (22:44)
[2022-05-09] MEDS: ALBUTEROL SO4 2.5/IPRATROPIUM 0.5 INH SOL 3 ML VIAL.NEB. NEB SCH ×4 (07:40→19:53)
[2022-05-09] MEDS: AMINO ACIDS/PROTEIN HYDROLYS 30 ML LIQUID.PKT PO SCH ×2 (08:32→18:30)
[2022-05-09] MEDS: GABAPENTIN 100 MG CAPSULE PO SCH ×2 (08:32→18:30)
[2022-05-09] MEDS: POTASSIUM CHLORIDE ORAL LIQUID 20 MEQ/15 ML PO SCH (10:21)
[2022-05-09] MEDS: FUROSEMIDE 40 MG TABLET (FP) PO SCH (10:21)
[2022-05-09] MEDS: DARUNAVIR 800 MG/COBICISTAT 150MG TABLET PO SCH (10:21)
[2022-05-09] MEDS: APIXABAN 5 MG TABLET PO SCH ×2 (10:21→23:05)
[2022-05-09] MEDS: MULTIVITAMINS (DAILY MVI) TABLET (FP) PO SCH (10:21)
[2022-05-09] MEDS: guaiFENesin 600 MG TABLET.ER (FP) PO SCH ×2 (10:21→23:06)
[2022-05-09] MEDS: EMTRICITABINE/TENOFOV ALAFENAM (DESCOVY) TABLET PO SCH (10:21)
[2022-05-09] MEDS: PARoxetine HCL 20 MG TABLET PO SCH (10:21)
[2022-05-09] MEDS: MIDODRINE HCL 5 MG TABLET PO SCH ×3 (10:21→18:30)
[2022-05-09] MEDS: NYSTATIN 100,000 UNIT/GM TOPICAL CREAM 15 GM TUBE TP SCH ×2 (10:22→23:07)
[2022-05-09] MEDS: metoPROLOL SUCCINATE 25 MG TAB.SR.24H (FP) PO SCH (10:22)
[2022-05-09] MEDS: BUDESONIDE/FORMETEROL FUMARATE 160/4.5 mcg INHALER IH SCH ×2 (10:23→23:06)
[2022-05-09] MEDS: ACETAMINOPHEN 325 MG TABLET (FP) PO PRN (11:44)
[2022-05-09] MEDS: GABAPENTIN 300 MG CAPSULE PO SCH (23:05)
[2022-05-09] MEDS: ATORVASTATIN CA 10 MG TABLET (FP) PO SCH (23:06)
[2022-05-10] MEDS: ALBUTEROL SO4 2.5/IPRATROPIUM 0.5 INH SOL 3 ML VIAL.NEB. NEB SCH ×5 (07:48→20:54)
[2022-05-10] MEDS: GABAPENTIN 100 MG CAPSULE PO SCH ×2 (08:25→17:08)
[2022-05-10] MEDS: AMINO ACIDS/PROTEIN HYDROLYS 30 ML LIQUID.PKT PO SCH ×2 (08:25→17:08)
[2022-05-10] MEDS: POTASSIUM CHLORIDE ORAL LIQUID 20 MEQ/15 ML PO SCH (11:08)
[2022-05-10] MEDS: MULTIVITAMINS (DAILY MVI) TABLET (FP) PO SCH (11:10)
[2022-05-10] MEDS: guaiFENesin 600 MG TABLET.ER (FP) PO SCH ×2 (11:10→21:33)
[2022-05-10] MEDS: metoPROLOL SUCCINATE 25 MG TAB.SR.24H (FP) PO SCH (11:10)
[2022-05-10] MEDS: APIXABAN 5 MG TABLET PO SCH ×2 (11:10→21:33)
[2022-05-10] MEDS: MIDODRINE HCL 5 MG TABLET PO SCH ×3 (11:11→17:08)
[2022-05-10] MEDS: PARoxetine HCL 20 MG TABLET PO SCH (11:11)
[2022-05-10] MEDS: EMTRICITABINE/TENOFOV ALAFENAM (DESCOVY) TABLET PO SCH (11:11)
[2022-05-10] MEDS: DARUNAVIR 800 MG/COBICISTAT 150MG TABLET PO SCH (11:11)
[2022-05-10] MEDS: FUROSEMIDE 40 MG TABLET (FP) PO SCH (11:11)
[2022-05-10] MEDS: BUDESONIDE/FORMETEROL FUMARATE 160/4.5 mcg INHALER IH SCH ×2 (11:12→21:35)
[2022-05-10] MEDS: NYSTATIN 100,000 UNIT/GM TOPICAL CREAM 15 GM TUBE TP SCH ×2 (11:13→21:34)
[2022-05-10 11:51] LABS: HEMATOCRIT 28.3 % (32.4-45.2); HEMOGLOBIN 9.5 GM/dL (10.7-15.3); MCHC 33.7 g/dl (32.0-36.0); MEAN CELL VOLUME 100.8 fl (80-96); PLATELET COUNT 419 10^3/uL (134-434); RDW 15.9 % (11.6-15.6); WHITE BLOOD COUNT 9.8 K/mm3 (4.0-10.0)
[2022-05-10] MEDS ORDERED: REMDESIVIR 200 MG in SODIUM CHLORIDE 250 ML IVPB ONE (15:30)
[2022-05-10] MEDS ORDERED: ALBUTEROL SO4 HFA INHALER IH PRN (21:15)
[2022-05-10] MEDS: ATORVASTATIN CA 10 MG TABLET (FP) PO SCH (21:33)
[2022-05-10] MEDS: GABAPENTIN 300 MG CAPSULE PO SCH (21:33)
[2022-05-10 23:09] VITALS: RESP 20
[2022-05-11] MEDS: ACETAMINOPHEN 325 MG TABLET (FP) PO PRN (06:33)
[2022-05-11] MEDS: FUROSEMIDE 40 MG TABLET (FP) PO SCH (12:20)
[2022-05-11] MEDS: APIXABAN 5 MG TABLET PO SCH ×2 (12:20→22:48)
[2022-05-11] MEDS: metoPROLOL SUCCINATE 25 MG TAB.SR.24H (FP) PO SCH (12:20)
[2022-05-11] MEDS: PARoxetine HCL 20 MG TABLET PO SCH (12:20)
[2022-05-11] MEDS: MIDODRINE HCL 5 MG TABLET PO SCH ×3 (12:20→18:15)
[2022-05-11] MEDS: guaiFENesin 600 MG TABLET.ER (FP) PO SCH ×2 (12:20→22:48)
[2022-05-11] MEDS: MULTIVITAMINS (DAILY MVI) TABLET (FP) PO SCH (12:20)
[2022-05-11] MEDS: AMINO ACIDS/PROTEIN HYDROLYS 30 ML LIQUID.PKT PO SCH ×2 (12:21→18:15)
[2022-05-11] MEDS: GABAPENTIN 100 MG CAPSULE PO SCH ×2 (12:21→18:15)
[2022-05-11] MEDS: NYSTATIN 100,000 UNIT/GM TOPICAL CREAM 15 GM TUBE TP SCH ×2 (12:23→22:48)
[2022-05-11] MEDS: BUDESONIDE/FORMETEROL FUMARATE 160/4.5 mcg INHALER IH SCH ×2 (12:23→22:49)
[2022-05-11] MEDS: POTASSIUM CHLORIDE ORAL LIQUID 20 MEQ/15 ML PO SCH (12:23)
[2022-05-11] MEDS: EMTRICITABINE/TENOFOV ALAFENAM (DESCOVY) TABLET PO SCH (12:23)
[2022-05-11] MEDS: DARUNAVIR 800 MG/COBICISTAT 150MG TABLET PO SCH (12:23)
[2022-05-11] MEDS: DEXAMETHASONE SOD PHOSPHATE 10 MG/1 ML VIAL IVPUSH SCH (14:51)
[2022-05-11] MEDS: REMDESIVIR 100 MG in SODIUM CHLORIDE 250 ML IVPB SCH (14:51)
[2022-05-11 16:02] LABS: EPI CELLS 1 /uL (0-25.1); HYALINE CASTS 11 /uL (0-3.1); URINE APPEARANCE TURBID; URINE BACTERIA >9,000 /uL (0-1359); URINE BILIRUBIN 1+ (NEGATIVE); URINE COLOR ORANGE; URINE GLUCOSE (UA) NEGATIVE (NEGATIVE); URINE KETONE NEGATIVE (NEGATIVE); URINE LEUK ESTERASE 2+ (NEGATIVE); URINE NITRITE POSITIVE (NEGATIVE); URINE PROTEIN 2+ (NEGATIVE); URINE RBC 16151 /uL (0-23.9); URINE WBC 638 /uL (0-25.8)
[2022-05-11] MEDS: GABAPENTIN 300 MG CAPSULE PO SCH (22:48)
[2022-05-11] MEDS: ATORVASTATIN CA 10 MG TABLET (FP) PO SCH (22:48)
[2022-05-12] MEDS: AMINO ACIDS/PROTEIN HYDROLYS 30 ML LIQUID.PKT PO SCH ×2 (09:51→17:36)
[2022-05-12] MEDS: POTASSIUM CHLORIDE ORAL LIQUID 20 MEQ/15 ML PO SCH (09:51)
[2022-05-12] MEDS: metoPROLOL SUCCINATE 25 MG TAB.SR.24H (FP) PO SCH (09:52)
[2022-05-12] MEDS: PARoxetine HCL 20 MG TABLET PO SCH (09:52)
[2022-05-12] MEDS: MULTIVITAMINS (DAILY MVI) TABLET (FP) PO SCH (09:52)
[2022-05-12] MEDS: MIDODRINE HCL 5 MG TABLET PO SCH ×3 (09:53→18:37)
[2022-05-12] MEDS: APIXABAN 5 MG TABLET PO SCH ×2 (09:53→23:29)
[2022-05-12] MEDS: FUROSEMIDE 40 MG TABLET (FP) PO SCH (09:53)
[2022-05-12] MEDS: DEXAMETHASONE SOD PHOSPHATE 10 MG/1 ML VIAL IVPUSH SCH (09:53)
[2022-05-12] MEDS: guaiFENesin 600 MG TABLET.ER (FP) PO SCH ×2 (09:53→23:29)
[2022-05-12] MEDS: GABAPENTIN 100 MG CAPSULE PO SCH ×2 (09:53→17:29)
[2022-05-12] MEDS: DARUNAVIR 800 MG/COBICISTAT 150MG TABLET PO SCH (09:56)
[2022-05-12] MEDS: EMTRICITABINE/TENOFOV ALAFENAM (DESCOVY) TABLET PO SCH (11:06)
[2022-05-12 13:30] LABS: HEMATOCRIT 29.9 % (32.4-45.2); HEMOGLOBIN 10.1 GM/dL (10.7-15.3); MCH 34.3 pg (25.7-33.7); MCHC 33.8 g/dl (32.0-36.0); MEAN CELL VOLUME 101.2 fl (80-96); MEAN PLT VOLUME 7.7 fl (7.5-11.1); PLATELET COUNT 549 10^3/uL (134-434); RBC 2.95 M/mm3 (3.60-5.2); RDW 15.8 % (11.6-15.6); WHITE BLOOD COUNT 11.7 K/mm3 (4.0-10.0)
[2022-05-12] MEDS: BUDESONIDE/FORMETEROL FUMARATE 160/4.5 mcg INHALER IH SCH ×2 (13:48→23:29)
[2022-05-12] MEDS: CEFTRIAXONE 1 GM in DEXTROSE 5%-WATER - 50 ML IVPB SCH (13:48)
[2022-05-12] MEDS: NYSTATIN 100,000 UNIT/GM TOPICAL CREAM 15 GM TUBE TP SCH ×2 (13:49→23:30)
[2022-05-12] MEDS: REMDESIVIR 100 MG in SODIUM CHLORIDE 250 ML IVPB SCH (17:06)
[2022-05-12] MEDS: ATORVASTATIN CA 10 MG TABLET (FP) PO SCH (23:29)
[2022-05-12] MEDS: GABAPENTIN 300 MG CAPSULE PO SCH (23:29)
[2022-05-13] MEDS: AMINO ACIDS/PROTEIN HYDROLYS 30 ML LIQUID.PKT PO SCH ×2 (09:11→16:42)
[2022-05-13] MEDS: GABAPENTIN 100 MG CAPSULE PO SCH ×2 (09:14→16:42)
[2022-05-13] MEDS: CEFTRIAXONE 1 GM in DEXTROSE 5%-WATER - 50 ML IVPB SCH (11:23)
[2022-05-13] MEDS: POTASSIUM CHLORIDE ORAL LIQUID 20 MEQ/15 ML PO SCH (11:23)
[2022-05-13] MEDS: DEXAMETHASONE SOD PHOSPHATE 10 MG/1 ML VIAL IVPUSH SCH (11:24)
[2022-05-13] MEDS: APIXABAN 5 MG TABLET PO SCH ×2 (11:25→22:03)
[2022-05-13] MEDS: MIDODRINE HCL 5 MG TABLET PO SCH ×3 (11:25→17:40)
[2022-05-13] MEDS: guaiFENesin 600 MG TABLET.ER (FP) PO SCH ×2 (11:25→22:03)
[2022-05-13] MEDS: MULTIVITAMINS (DAILY MVI) TABLET (FP) PO SCH (11:25)
[2022-05-13] MEDS: PARoxetine HCL 20 MG TABLET PO SCH (11:25)
[2022-05-13] MEDS: metoPROLOL SUCCINATE 25 MG TAB.SR.24H (FP) PO SCH (11:25)
[2022-05-13] MEDS: FUROSEMIDE 40 MG TABLET (FP) PO SCH (11:54)
[2022-05-13] MEDS: DARUNAVIR 800 MG/COBICISTAT 150MG TABLET PO SCH (11:59)
[2022-05-13] MEDS: EMTRICITABINE/TENOFOV ALAFENAM (DESCOVY) TABLET PO SCH (12:00)
[2022-05-13] MEDS: NYSTATIN 100,000 UNIT/GM TOPICAL CREAM 15 GM TUBE TP SCH ×2 (12:00→22:04)
[2022-05-13] MEDS: BUDESONIDE/FORMETEROL FUMARATE 160/4.5 mcg INHALER IH SCH ×2 (12:01→22:03)
[2022-05-13] MEDS: REMDESIVIR 100 MG in SODIUM CHLORIDE 250 ML IVPB SCH (16:05)
[2022-05-13] MEDS: GABAPENTIN 300 MG CAPSULE PO SCH (22:03)
[2022-05-13] MEDS: ATORVASTATIN CA 10 MG TABLET (FP) PO SCH (22:03)
[2022-05-14] MEDS: GABAPENTIN 100 MG CAPSULE PO SCH ×2 (07:58→16:55)
[2022-05-14] MEDS: AMINO ACIDS/PROTEIN HYDROLYS 30 ML LIQUID.PKT PO SCH ×2 (07:58→16:55)
[2022-05-14] MEDS ORDERED: TAMSULOSIN HCL 0.4 MG CAP PO SCH (08:30)
[2022-05-14] MEDS: DEXAMETHASONE SOD PHOSPHATE 10 MG/1 ML VIAL IVPUSH SCH (10:19)
[2022-05-14] MEDS: guaiFENesin 600 MG TABLET.ER (FP) PO SCH (10:20)
[2022-05-14] MEDS: MIDODRINE HCL 5 MG TABLET PO SCH ×3 (10:20→18:30)
[2022-05-14] MEDS: MULTIVITAMINS (DAILY MVI) TABLET (FP) PO SCH (10:21)
[2022-05-14] MEDS: POTASSIUM CHLORIDE ORAL LIQUID 20 MEQ/15 ML PO SCH (10:21)
[2022-05-14] MEDS: APIXABAN 5 MG TABLET PO SCH (10:21)
[2022-05-14] MEDS: metoPROLOL SUCCINATE 25 MG TAB.SR.24H (FP) PO SCH (10:22)
[2022-05-14] MEDS: PARoxetine HCL 20 MG TABLET PO SCH (10:22)
[2022-05-14] MEDS: FUROSEMIDE 40 MG TABLET (FP) PO SCH (10:23)
[2022-05-14] MEDS: DARUNAVIR 800 MG/COBICISTAT 150MG TABLET PO SCH (10:29)
[2022-05-14] MEDS: EMTRICITABINE/TENOFOV ALAFENAM (DESCOVY) TABLET PO SCH (10:29)
[2022-05-14] MEDS: NYSTATIN 100,000 UNIT/GM TOPICAL CREAM 15 GM TUBE TP SCH (12:06)
[2022-05-14] MEDS: BUDESONIDE/FORMETEROL FUMARATE 160/4.5 mcg INHALER IH SCH (14:12)
[2022-05-14 15:54] LABS: HEMATOCRIT 28.9 % (32.4-45.2); HEMOGLOBIN 10.2 GM/dL (10.7-15.3); MCH 35.3 pg (25.7-33.7); MCHC 35.1 g/dl (32.0-36.0); MEAN CELL VOLUME 100.7 fl (80-96); MEAN PLT VOLUME 7.6 fl (7.5-11.1); PLATELET COUNT 488 10^3/uL (134-434); RBC 2.88 M/mm3 (3.60-5.2); RDW 15.8 % (11.6-15.6); WHITE BLOOD COUNT 9.2 K/mm3 (4.0-10.0)
[2022-05-14 15:59] VITALS: PULSE 62
[2022-05-14 16:00] VITALS: BP 92/58; TEMP 94.5
[2022-05-14] MEDS: REMDESIVIR 100 MG in SODIUM CHLORIDE 250 ML IVPB SCH (16:00)
== END 2022-05-14 19:30 | DRG 252 ==
LOC: JER 11:51 → JERBED 14:46 → J4W 18:57 → OBSVTOIN 04-07 09:19 → J7W 04-19 17:48
PROVIDERS: ADMIT Internal Medicine; ATTEND Internal Medicine
PROC: 3E03317 Introduction of Other Thrombolytic into Peripheral Vein, Percutaneous Approach (ICD-10-PCS; 2022-05-03)
PROC: 047L3ZZ Dilation of Left Femoral Artery, Percutaneous Approach (ICD-10-PCS; principal; 2022-05-03 14:00)
PROC: XW033E5 Introduction of Remdesivir Anti-infective into Peripheral Vein, Percutaneous Approach, New Technology Group 5 (ICD-10-PCS; 2022-05-10)
DX: I11.0 Hypertensive heart disease with heart failure (principal); J12.82 Pneumonia due to coronavirus disease 2019; J18.9 Pneumonia, unspecified organism; U07.1 COVID-19; J98.11 Atelectasis; K56.609 Unspecified intestinal obstruction, unspecified as to partial versus complete obstruction; J44.0 Chronic obstructive pulmonary disease with (acute) lower respiratory infection; K56.7 Ileus, unspecified; I82.409 Acute embolism and thrombosis of unspecified deep veins of unspecified lower extremity; J44.9 Chronic obstructive pulmonary disease, unspecified; M31.6 Other giant cell arteritis; E78.5 Hyperlipidemia, unspecified; M41.9 Scoliosis, unspecified; M62.81 Muscle weakness (generalized); M17.0 Bilateral primary osteoarthritis of knee; Z21 Asymptomatic human immunodeficiency virus [HIV] infection status; G20 Parkinson's disease; D69.6 Thrombocytopenia, unspecified; F41.8 Other specified anxiety disorders; I50.32 Chronic diastolic (congestive) heart failure
CPT/HCPCS: 0241U-QW; 36415; 71045-TC-FY; 71250-TC; 74018-TC-FY; 74019-TC-FY; 74176-TC; 76000-TC-FY; 78452-TC; 80048; 80053; 80061; 80076; 81003; 82272; 82550; 82607; 82803; 82962; 83735; 83880; 84100; 84439; 84443; 84484; 85025; 85027; 85610; 85651; 85730; 86140; 86359; 86360; 86644; 86645; 86753; 87040; 87045; 87046; 87086; 87186; 87205; 87209; 87324; 87449; 87522; 87536; 93005; 93010; 93017; 93306-TC; 93971-TC; 94640; 94760; 97116-GP; 97162-GP; 99285-25; A9502; C9399; C9803-CS; G0378; J1100; J1644; J2785; U0003; U0005